=== PATIENT | male | born 1950 | race Caucasian/White ===

== ENCOUNTER 2016-10-29 11:44 | Inpatient (IN) | payer MEDICARE, BC ==
[~2016-10-29] VITALS: Ht 170.2 cm; Wt 48.9 kg
[~2016-10-29 11:44] MED LIST: ATOR80TA PO; CITA-48 PO; CLON1TAB PO; CYCL1PAK PO; GABA100C4 PO; LORTA5 PO; QUET25 PO; ROSU40 PO; TIZA4CAP PO; VENL75CA44 PO
[2016-10-29 11:46] VITALS: BP 119/90; PULSE 106; RESP 18; O2SAT 98
--- NOTE | 2016-10-29 12:12 | PD ---
HPI Chief Complaint: GI Complaint Time Seen by Provider: 12:11 Travel History International Travel<30 days: No Contact w/Intl Traveler<30days: No Traveled to known affect area: No History of Present Illness HPI 66-year-old male came to the emergency room with history of chronic diarrhea and weight loss over 2-3 weeks. Patient says he lost 30 pounds. His primary care and asked them to come to the emergency room. He is not complaining of any pain anywhere. He does seem emaciated. Patient has slight tachycardia in the triage. He does not appear to be in any distress. He is really vague with his complaints. [facility] Past Medical History Narrative Medical List of his past medical, surgical, social and family history was reviewed from the nursing note. Cancer: No Cardiovascular Problems: No Diabetes: No Diminished Hearing: No Endocrine: No Gastrointestinal Disorders: Yes Genitourinary: No Hepatitis: No Hiatal Hernia: No Immune Disorder: No Insomnia: Yes Medical other: Yes (HYDROCEPHALIS) Neurologic: Yes (FALLING NOVEMBER2012) Psychiatric: Yes (PANIC ATTACKS) Reproductive: No Respiratory: No Immunizations Current: Yes Thyroid Disease: No Tetanus Vaccination: < 5 Years Influenza Vaccination: No Past Surgical History Abdominal Surgery: Yes (COLONOSCOPY 2004) Other Surgery: Yes Social History Alcohol Use: Yes (socially) Tobacco Use: Yes (cigars) Substance Use: No Allergies-Medications (Allergen,Severity, Reaction): Uncoded Allergies: TYPHOID (Allergy, Severe, Anaphylaxis, 06/28/13) Comments List of his allergies reviewed from the nursing note. Reported Meds & Prescriptions Reported Meds & Active Scripts Active Reported Fosamax (Alendronate Sodium) 70 Mg Tab 70 Mg PO Q7D Trazodone (Trazodone HCl) 100 Mg Tab 100 Mg PO HS Narrative Medication List of his home medications reviewed from the nursing note. Review of Systems Except as stated in HPI: all other systems reviewed are Neg Physical Exam Narrative GENERAL: Awake, alert, emaciated, no obvious distress SKIN: Warm and dry. Generalized erythematous maculopapular rash HEAD: Atraumatic. Normocephalic. EYES: Pupils equal and round. No scleral icterus. No injection or drainage. ENT: No nasal bleeding or discharge. Mucous membranes pink and moist. NECK: Trachea midline. No JVD. CARDIOVASCULAR: Regular rate and rhythm. No murmur appreciated. RESPIRATORY: No accessory muscle use. Clear to auscultation. Breath sounds equal bilaterally. GASTROINTESTINAL: Abdomen soft, non-tender, nondistended. Hepatic and splenic margins not palpable. MUSCULOSKELETAL: No obvious deformities. No clubbing. No cyanosis. No edema. NEUROLOGICAL: Awake and alert. No obvious cranial nerve deficits. Motor grossly within normal limits. Normal speech. PSYCHIATRIC: Appropriate mood and affect; insight and judgment normal. Data Data Last Documented VS Orders Complete Blood Count With Diff (10/29/16 12:18) Comprehensive Metabolic Panel (10/29/16 12:18) Iv Access Insert/Monitor (10/29/16 12:18) Ecg Monitoring (10/29/16 12:18) Oximetry (10/29/16 12:18) Sodium Chlor 0.9% 1000 Ml Inj (Ns 1000 M (10/29/16 12:18) Sodium Chloride 0.9% Flush (Ns Flush) (10/29/16 12:30) Potassium Chloride Eff (K-Lyte Cl Eff) (10/29/16 13:45) Ct Abd/Pel W Iv Contrast(Rout) (10/29/16 ) Iohexol 350 Inj (Omnipaque 350 Inj) (10/29/16 14:35) Admit Order (Ed Use Only) (10/29/16 15:49) Labs MDM Medical Decision Making Medical Screen Exam Complete: Yes Emergency Medical Condition: Yes Medical Record Reviewed: Yes Differential Diagnosis Failure to thrive, chronic diarrhea syndrome Narrative Course 12:58 PM patient was given IV fluid bolus. Awaiting for the blood test results. 1:52 PM blood test results are back. Patient has leukopenia and his potassium and calcium was slightly low. I have ordered a CAT scan of his abdomen and pelvis with IV contrast. Given the significant weight loss in past 2 weeks ago with diarrhea and concern from malignancy standpoint. I have put a call out for Dr. Knox. 3:32 PM CAT scan report came back as inguinal lymphadenopathy. Possible neoplasm versus inflammatory. Given the 30 pound weight loss neoplasm seems to be more likely. I discussed this with Dr. Knox and patient would benefit if worked up inpatient as per him. Awaiting for the hospitalist to call back. Procedures EKG Prior to Arrival: No Physician Communication Physician Communication Dr. Booth Diagnosis Primary Impression: Failure to thrive in adult Additional Impressions: Dehydration Inguinal lymphadenopathy Occult malignancy Admitting Information Admitting Physician Requests: Admit Scripts Hydrocodone-Acetaminophen 5-325 mg Tab1 Tab PO Q4H PRN (PAIN SCALE 1 TO 7) #12 TAB Ref 0 Do not use this medicine if you will drive a car or use a machine, only use it when resting at home. Prov:Omid Carey MD 11/04/16 Carmella Barker MD Oct 29, 2016 12:12 Neutrophils # (Auto) 2.6 TH/MM3 Lymphocytes # (Auto) 0.5 TH/MM3 Monocytes # (Auto) 0.2 TH/MM3 Eosinophils # (Auto) 0.0 TH/MM3 Basophils # (Auto) 0.0 TH/MM3 CBC Comment DIFF FINAL Differential Comment Sodium Level 133 MEQ/L Potassium Level 3.4 MEQ/L Chloride Level 100 MEQ/L Carbon Dioxide Level 26.1 MEQ/L Anion Gap 7 MEQ/L Blood Urea Nitrogen 16 MG/DL Creatinine 0.94 MG/DL Estimat Glomerular Filtration 81 ML/MIN Rate Random Glucose 147 MG/DL Calcium Level 7.1 MG/DL Protein Corrected Calcium 8.0 MG/DL Total Bilirubin 0.4 MG/DL Aspartate Amino Transf 64 U/L (AST/SGOT) Alanine Aminotransferase 54 U/L (ALT/SGPT) Alkaline Phosphatase 78 U/L Total Protein 5.4 GM/DL Albumin 2.3 GM/DL [facility] Medical Decision Making Medical Screen Exam Complete: Yes Emergency Medical Condition: Yes Medical Record Reviewed: Yes Differential Diagnosis Failure to thrive, chronic diarrhea syndrome Narrative Course 12:58 PM patient was given IV fluid bolus. Awaiting for the blood test results. 1:52 PM blood test results are back. Patient has leukopenia and his potassium and calcium was slightly low. I have ordered a CAT scan of his abdomen and pelvis with IV contrast. Given the significant weight loss in past 2 weeks ago with diarrhea and concern from malignancy standpoint. I have put a call out for Dr. Knox. Next 3:32 PM CAT scan report came back as inguinal lymphadenopathy. Possible neoplasm versus inflammatory. Given the 30 pound weight loss neoplasm seems to be more likely. I discussed this with Dr. nKox and patient with the eye daily worked up inpatient as per him. Awaiting for the hospitalist to call back. Procedures EKG Prior to Arrival: No Physician Communication Physician Communication Dr. Booth Diagnosis Primary Impression: Failure to thrive in adult Additional Impressions: Dehydration Inguinal lymphadenopathy Occult malignancy Admitting Information Admitting Physician Requests: Admit Carmella Barker MD Oct 29, 2016 12:12
[2016-10-29] MEDS ORDERED: SODIUM CHLOR 0.9% 1000 ML INJ 1,000 ML IV SCH (12:18)
[2016-10-29] MEDS ORDERED: SODIUM CHLORIDE 0.9% FLUSH 10 ML FLUSH IV FLUSH PRN ×2 (12:30→16:45)
[2016-10-29 12:37] VITALS: O2SAT 98
[2016-10-29] MEDS ORDERED: FOSA70TA PO (12:46)
[2016-10-29] MEDS ORDERED: TRAZ100T4 PO (12:46)
[2016-10-29 13:00] VITALS: BP 108/87; PULSE 86; RESP 18; O2SAT 97
[2016-10-29 13:11] LABS: AUTOMATED NEUTROPHIL # 2.6 TH/MM3 (1.8-7.7); BASOPHIL % 0.6 % (0.0-2.0); EOSINOPHIL % 0.2 % (0.0-4.0); HEMATOCRIT 41.3 % (39.0-51.0); HEMO FLAGS DIFF FINAL; LYMPH % 16.1 % (9.0-44.0); LYMPHOCYTE # 0.5 TH/MM3 (1.0-4.8); MEAN CELL VOLUME 85.4 FL (80.0-100.0); MEAN CORPUSCULAR HEMOGLOBIN 28.8 PG (27.0-34.0); MEAN CORPUSCULAR HGB CONC 33.7 % (32.0-36.0); MONO % 6.1 % (0.0-8.0); PLATELET COUNT 227 TH/MM3 (150-450); RED BLOOD COUNT 4.83 MIL/MM3 (4.50-5.90); RED CELL DISTRIBUTION WIDTH 13.7 % (11.6-17.2); WHITE BLOOD COUNT 3.3 TH/MM3 (4.0-11.0)
[2016-10-29 13:34] LABS: BICARBONATE 26.1 MEQ/L (21.0-32.0); POTASSIUM 3.4 MEQ/L (3.5-5.1); TOTAL BILIRUBIN ADULT 0.4 MG/DL (0.2-1.0)
[2016-10-29] MEDS ORDERED: POTASSIUM CHLORIDE 25 MEQ EFFERVESCENT TAB PO ONE (13:45)
[2016-10-29] MEDS ORDERED: IOHEXOL 350 MG/ML 10 ML VIAL (for RAD DIAG) IV ONE (14:35)
--- NOTE | 2016-10-29 14:57 | RADRPT ---
EXAM DATE/TIME: 10/29/2016 14:30 [facility] COMPARISON: No previous studies available for comparison. INDICATIONS : Diarrhea for 2 week with weight loss. IV CONTRAST: 96 cc Omnipaque 350 (iohexol) IV ORAL CONTRAST: No oral contrast ingested. RADIATION DOSE: 4.86 CTDIvol (mGy) MEDICAL HISTORY : None SURGICAL HISTORY : None. ENCOUNTER: Initial ACUITY: 1 day PAIN SCALE: 0/10 LOCATION: abdomen TECHNIQUE: Volumetric scanning of the abdomen and pelvis was performed. Using automated exposure control and ad justment of the mA and/or kV according to patient size, radiation dose was kept as low as reasonably achievable to obtain optimal diagnostic quality images. FINDINGS: LOWER LUNGS: The visualized lower lungs are clear. LIVER: There is a vague subcentimeter low density in the dome of the liver, segment VII. Mild diffuse decrea sed attenuation may be steatosis. No evidence of biliary ductal dilatation. SPLEEN: Normal size without lesion. PANCREAS: Within normal limits. KIDNEYS: Normal in size and shape. There is no mass, stone or hydronephrosis. ADRENAL GLANDS: Within normal limits. VASCULAR: Atherosclerotic changes involving the abdominal aorta and branch vessels. No evidence of aneurysm. No evidence of major vessel occlusion. BOWEL/MESENTERY: The stomach, small bowel, and colon demonstrate no acute abnormality. There is no free intraperitone al air or fluid. ABDOMINAL WALL: Within normal limits. RETROPERITONEUM: Prominent right iliac lymphadenopathy with tamara enlargement extending into the right inguinal region in contiguous fashion.. BLADDER: No wall thickening or mass. REPRODUCTIVE: Within normal limits. INGUINAL: Right inguinal lymphadenopathy including a nearly 3 cm node in the medial right groin. MUSCULOSKELETAL: Previous pinning of the left hip. 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 CONCLUSION: Right iliac and inguinal lymphadenopathy. Correlate with possible infectious/inflammatory process in the right lower extremity. Otherwise concerning for neoplasm. Nonspecific low density right lobe liver lesion. Zeb Guan MD on October 29, 2016 at 14:42 Board Certified Radiologist. This report was verified electronically.
[2016-10-29 16:30] VITALS: BP 113/67; PULSE 79; RESP 18; O2SAT 99
[2016-10-29] MEDS ORDERED: ACETAMINOPHEN/HYDROcodone 325 MG/5 MG TAB PO PRN (16:45)
[2016-10-29] MEDS ORDERED: ACETAMINOPHEN 325 MG TAB PO PRN ×2 (16:45)
[2016-10-29] MEDS ORDERED: NALOXONE HCL 0.4 MG/ML AMP IV PRN (16:45)
[2016-10-29] MEDS ORDERED: ONDANSETRON HCL 4 MG/2 ML VIAL IVP PRN (16:45)
--- NOTE | 2016-10-29 16:45 | HHI.HP ---
[facility] Service [place] [facility] Primary Care Physician Mandeep Ragland MD Admission Diagnosis failure to thrive, occult neoplasm, dehydration Diagnoses: (1) Occult malignancy (2) Inguinal lymphadenopathy (3) Failure to thrive in adult (4) Generalized maculopapular rash (5) Diarrhea (6) Neutropenia Chief Complaint: weight loss, generalized maculopapular rash and diarrhea Travel History International Travel<30 Days: No Contact w/Intl Traveler <30 Da: No Traveled to Known Affected Are: No History of Present Illness 66-year-old male with a history of panic attack, depression was advised by his PCP to seek medical attention to the ED for evaluation of 2-3 weeks history of chronic diarrhea described as loose stool happening 5 times a day associated with generalized maculopapular rash and approximately 30 pound weight loss without any complaint of abdominal pain or febrile episode. He also reports some appetite however denies any nausea or vomiting. Patient denies any recent travel as well or sick contact. Abnormal labs include WBC 3.3 and AST of 64. Abdomen/Pelvis CT with finding of inguinal lymphadenopathy. Patient denies any GI bleed and cities has his last colonoscopy over 5 years ago which was read as within normal limits. Review of Systems Other 12 systems reviewed and are negative except for the one mentioned in history of present illness Past Family Social History Past Medical History History of hyperlipidemia Panic attack Depression Past Surgical History ORIF left hip ORIF left arm Reported Medications Fosamax (Alendronate Sodium) 70 Mg Tab 70 Mg PO Q7D Trazodone (Trazodone HCl) 100 Mg Tab 100 Mg PO HS Allergies: Uncoded Allergies: TYPHOID (Allergy, Severe, Anaphylaxis, 06/28/13) Family History Father from complication of COPD Mother from dementia Social History Patient smokes 1-2 cigars per day but denies alcohol or illicit drug intake. Physical Exam Vital Signs Vital Signs Date Time Temp Pulse Resp B/P Pulse Ox O2 Delivery O2 Flow Rate FiO2 10/29/16 13:00 86 18 108/87 97 Room Air 10/29/16 12:37 98 Room Air 10/29/16 11:46 106 18 119/90 98 Room Air Physical Exam GENERAL: This is an emancipated patient, in no apparent distress. SKIN: Generalized maculopapular rash of her entire body HEAD: Atraumatic. Normocephalic. No temporal or scalp tenderness. EYES: Pupils equal round and reactive. Extraocular motions intact. No scleral icterus. No injection or drainage. ENT: Nose without bleeding, purulent drainage or septal hematoma. Throat without erythema, tonsillar hypertrophy or exudate. Uvula midline. Airway patent. NECK: Trachea midline. + lymphadenopathy. Supple, nontender, no meningeal signs. CARDIOVASCULAR: Regular rate and rhythm without murmurs, gallops, or rubs. RESPIRATORY: Clear to auscultation. Breath sounds equal bilaterally. No wheezes , rales, or rhonchi. GASTROINTESTINAL: Abdomen soft, non-tender, nondistended. No hepato-splenomegaly , or palpable masses. No guarding. MUSCULOSKELETAL: Extremities without clubbing, cyanosis, or edema. No joint tenderness, effusion, or edema noted. No calf tenderness. Negative Homans sign bilaterally. NEUROLOGICAL: Awake and alert. Cranial nerves II through XII intact. Motor and sensory grossly within normal limits. Five out of 5 muscle strength in all muscle groups. Normal speech. Laboratory Laboratory Tests Test 10/29/16 12:30 White Blood Count 3.3 Red Blood Count 4.83 Hemoglobin 13.9 Hematocrit 41.3 Mean Corpuscular Volume 85.4 Mean Corpuscular Hemoglobin 28.8 Mean Corpuscular Hemoglobin 33.7 Concent Red Cell Distribution Width 13.7 Platelet Count 227 Mean Platelet Volume 7.8 Neutrophils (%) (Auto) 77.0 Lymphocytes (%) (Auto) 16.1 Monocytes (%) (Auto) 6.1 Eosinophils (%) (Auto) 0.2 Basophils (%) (Auto) 0.6 Neutrophils # (Auto) 2.6 Lymphocytes # (Auto) 0.5 Monocytes # (Auto) 0.2 Eosinophils # (Auto) 0.0 Basophils # (Auto) 0.0 CBC Comment DIFF FINAL Differential Comment Sodium Level 133 Potassium Level 3.4 Chloride Level 100 Carbon Dioxide Level 26.1 Anion Gap 7 Blood Urea Nitrogen 16 Creatinine 0.94 Estimat Glomerular Filtration 81 Rate Random Glucose 147 Calcium Level 7.1 Protein Corrected Calcium 8.0 Total Bilirubin 0.4 Aspartate Amino Transf 64 (AST/SGOT) Alanine Aminotransferase 54 (ALT/SGPT) Alkaline Phosphatase 78 Total Protein 5.4 Albumin 2.3 Result Diagram: 10/29/16 1230 10/29/16 1230 Imaging Last Impressions Abdomen/Pelvis CT 10/29/16 0000 Signed Impressions: Service Date/Time: Saturday, October 29, 2016 14:30 - CONCLUSION: Right iliac and inguinal lymphadenopathy. Correlate with possible infectious/inflammatory process in the right lower extremity. Otherwise concerning for neoplasm. Nonspecific low density right lobe liver lesion. Zeb Guan MD Assessment and Plan Problem List: (1) Inguinal lymphadenopathy ICD Code: R59.0 Status: Acute (2) Failure to thrive in adult ICD Code: R62.7 Status: Acute (3) Occult malignancy ICD Code: C80.1 Status: Acute (4) Generalized maculopapular rash ICD Code: R21 Status: Acute (5) Neutropenia ICD Code: D70.9 Status: Acute (6) Diarrhea ICD Code: R19.7 Status: Acute (7) Impaired fasting glucose ICD Code: R73.01 Status: Acute Assessment and Plan 66-year-old male with Chronic diarrhea Failure to drive Inguinal lymphadenopathy Occult Malignancy -CT abdomen/pelvis noted and review by me with finding of Right iliac and inguinal lymphadenopathy. Correlate with possible infectious/inflammatory process in the right lower extremity. Otherwise concerning for neoplasm. -Check C diff PCR, stool culture for Ova and Parasite, Cyclospora and crypto in his stool. -Check tumor markers including AFP, CEA, Ca19-9 -Check HIV antigen/antibodies -Will get CT chest/thorax to rule out lymphadenopathy vs tumor -Consult Oncology for evaluation for possible Bone marrow biopsy Impaired fasting glucose: Check HgA1C and treat accordingly Hypokalemia: Replace electrolyte and monitor Depression/Insomnia: Resume outpatient medication DVT prophylaxis: B-SCD Code Status Full code Discussed Condition With patient, ED physician Physician Certification 2 Midnight Certification Type: Admission for Inpatient Services Order for Inpatient Services The services are ordered in accordance with Medicare regulations or non- Medicare payer requirements, as applicable. In the case of services not specified as inpatient-only, they are appropriately provided as inpatient services in accordance with the 2-midnight benchmark. Estimated LOS (days): 2 days is the estimated time the patient will need to remain in the hospital, assuming treatment plan goals are met and no additional complications. Post-Hospital Plan: Not yet determined Jv Zhang MD Oct 29, 2016 16:45
--- NOTE | 2016-10-29 17:35 | RADRPT ---
EXAM DATE/TIME: 10/29/2016 17:17 [facility] COMPARISON: No previous studies available for comparison. INDICATIONS : Abnormal abdominal CT today; evaluate for neoplasm. RADIATION DOSE: 6.16 CTDIvol (mGy) MEDICAL HISTORY : None SURGICAL HISTORY : None. ENCOUNTER: Initial ACUITY: 1 day PAIN SCALE: 0/10 LOCATION: chest TECHNIQUE: Volumetric scanning of the chest was performed. Using automated exposure control and adjustment of t he mA and/or kV according to patient size, radiation dose was kept as low as reasonably achievable to obtain optimal diagnostic quality images. FINDINGS: LUNGS: Airspace disease in the posterior left perihilar distribution involving the superior segment of the l eft lower lobe. Smaller parenchymal densities are seen in the left and right upper lobes. PLEURAE: There is no pleural thickening or pleural effusion. MEDIASTINUM: The heart and great vessels demonstrate no acute abnormality. There is no mediastinal or hilar lymph adenopathy. There is some atherosclerotic calcification of the coronary arteries AXILLAE: Within normal limits. No lymphadenopathy. MUSCULOSKELETAL: Within normal limits for patient age. MISCELLANEOUS: The visualized upper abdominal organs demonstrate no acute abnormality. CONCLUSION: 1. Airspace disease most prominent in the left posterior perihilar distribution involving the superio r segment of the left lower lobe. Smaller areas of parenchymal density in both upper lobes. Findings are most characteristic of a pneumonic infiltrate. I would recommend a followup CT scan of the chest in a few weeks after therapy to ensure resolution, however. 2. Atherosclerotic calcification of the coronary arteries Moreno Wilson MD on October 29, 2016 at 17:29 Board Certified Radiologist. This report was verified electronically.
--- NOTE | 2016-10-29 17:48 | RADRPT ---
EXAM DATE/TIME: 10/29/2016 17:19 [facility] COMPARISON: CT THORAX W/O CONTRAST, October 29, 2016, 17:17. INDICATIONS : Short of breath. MEDICAL HISTORY : None. SURGICAL HISTORY : None. ENCOUNTER: Initial ACUITY: 1 day PAIN SCORE: 0/10 LOCATION: Bilateral chest FINDINGS: Right upper lobe and left perihilar infiltrates are noted. There is no evidence of effusion. Heart si ze is within normal limits. CONCLUSION: Bilateral infiltrates. Zeb Guan MD on October 29, 2016 at 17:45 Board Certified Radiologist. This report was verified electronically.
[2016-10-29 18:00] VITALS: BP 135/72; PULSE 72; RESP 18; O2SAT 97
[2016-10-29 20:14] VITALS: BP 135/60
[2016-10-29] MEDS: SODIUM CHLORIDE 0.9% FLUSH 10 ML FLUSH IV FLUSH SCH (21:00)
[2016-10-29] MEDS: traZODone HCL 100 MG TAB PO SCH (21:31)
[2016-10-30] VITALS (7 sets, daily range): BP systolic 94–124; BP diastolic 55–97; PULSE 67–95; RESP 14–18; TEMP 97.7–99; O2SAT 95–98
[2016-10-30 07:29] LABS: AUTOMATED NEUTROPHIL # 2.3 TH/MM3 (1.8-7.7); BASOPHIL % 0.7 % (0.0-2.0); EOSINOPHIL % 1.5 % (0.0-4.0); HEMATOCRIT 36.1 % (39.0-51.0); HEMO FLAGS DIFF FINAL; LYMPH % 19.5 % (9.0-44.0); LYMPHOCYTE # 0.6 TH/MM3 (1.0-4.8); MEAN CELL VOLUME 84.2 FL (80.0-100.0); MEAN CORPUSCULAR HEMOGLOBIN 28.6 PG (27.0-34.0); MONO % 8.1 % (0.0-8.0); NEUT % 70.2 % (16.0-70.0); PLATELET COUNT 222 TH/MM3 (150-450); RED BLOOD COUNT 4.29 MIL/MM3 (4.50-5.90); RED CELL DISTRIBUTION WIDTH 13.4 % (11.6-17.2); WHITE BLOOD COUNT 3.2 TH/MM3 (4.0-11.0)
[2016-10-30 08:11] LABS: ALKALINE PHOSPHATASE 61 U/L (45-117); ALT (GPT) 42 U/L (12-78); ANION GAP 6 MEQ/L (5-15); AST (GOT) 46 U/L (15-37); BICARBONATE 24.7 MEQ/L (21.0-32.0); BLOOD UREA NITROGEN 12 MG/DL (7-18); CALCIUM-PROTEIN CORRECTED 8.7 MG/DL (8.5-10.1); CHLORIDE 105 MEQ/L (98-107); GLOMERULAR FILTRATION RATE 147 ML/MIN (>89); POTASSIUM 3.5 MEQ/L (3.5-5.1); SODIUM (NA) 136 MEQ/L (136-145); TOTAL BILIRUBIN ADULT 0.3 MG/DL (0.2-1.0)
--- NOTE | 2016-10-30 08:53 | HHI.PR ---
Subjective Remarks Follow-up failure to thrive/occult malignancy/chronic diarrhea 10/30/16: Patient seen and examined and now reports that he is only had diarrhea for 1 week but none in the past 2 days. Patient claims sometimes he gets confused. He denies any cough production and currently afebrile. Objective Vitals Vital Signs Date Time Temp Pulse Resp B/P Pulse Ox O2 Delivery O2 Flow Rate FiO2 10/30/16 03:55 97.8 74 16 106/55 97 10/30/16 00:00 97.7 78 16 105/59 96 10/29/16 20:14 88 18 135/60 97 10/29/16 18:00 72 18 135/72 97 Room Air 10/29/16 16:30 79 18 113/67 99 Room Air 10/29/16 13:00 86 18 108/87 97 Room Air 10/29/16 12:37 98 Room Air 10/29/16 11:46 106 18 119/90 98 Room Air I/O 10/29/16 10/29/16 10/29/16 10/30/16 10/30/16 10/30/16 07:00 15:00 23:00 07:00 15:00 23:00 Intake Total 240 ml 150 ml Output Total 200 ml Balance 240 ml -50 ml Intake Oral 240 ml 150 ml Output Urine Total 200 ml # Voids 0 # Bowel Movements 0 0 Result Diagram: 10/30/16 0635 10/30/16 0635 Imaging Last Impressions Chest X-Ray 10/29/16 0000 Signed Impressions: Service Date/Time: Saturday, October 29, 2016 17:19 - CONCLUSION: Bilateral infiltrates. Zeb Guan MD Chest CT 10/29/16 0000 Signed Impressions: Service Date/Time: Saturday, October 29, 2016 17:17 - CONCLUSION: 1. Airspace disease most prominent in the left posterior perihilar distribution involving the superior segment of the left lower lobe. Smaller areas of parenchymal density in both upper lobes. Findings are most characteristic of a pneumonic infiltrate. I would recommend a followup CT scan of the chest in a few weeks after therapy to ensure resolution, however. 2. Atherosclerotic calcification of the coronary arteries Moreno Wilson MD Abdomen/Pelvis CT 10/29/16 0000 Signed Impressions: Service Date/Time: Saturday, October 29, 2016 14:30 - CONCLUSION: Right iliac and inguinal lymphadenopathy. Correlate with possible infectious/inflammatory process in the right lower extremity. Otherwise concerning for neoplasm. Nonspecific low density right lobe liver lesion. Zeb Guan MD Objective Remarks GENERAL:Emanciated patient in no acute distress SKIN: Warm and dry. HEAD: Normocephalic. EYES: No scleral icterus. No injection or drainage. NECK: Supple, trachea midline. + lymphadenopathy. CARDIOVASCULAR: Regular rate and rhythm without murmurs, gallops, or rubs. RESPIRATORY: Breath sounds equal bilaterally. No accessory muscle use. GASTROINTESTINAL: Abdomen soft, non-tender, nondistended. MUSCULOSKELETAL: No cyanosis, or edema. BACK: Nontender without obvious deformity. No CVA tenderness. A/P Problem List: (1) Inguinal lymphadenopathy ICD Code: R59.0 Status: Acute (2) Failure to thrive in adult ICD Code: R62.7 Status: Acute (3) Occult malignancy ICD Code: C80.1 Status: Acute (4) Generalized maculopapular rash ICD Code: R21 Status: Acute (5) Neutropenia ICD Code: D70.9 Status: Acute (6) Diarrhea ICD Code: R19.7 Status: Acute (7) Impaired fasting glucose ICD Code: R73.01 Status: Acute Assessment and Plan 66-year-old male with Chronic diarrhea Failure to drive Inguinal lymphadenopathy Occult Malignancy -CT abdomen/pelvis with finding of Right iliac and inguinal lymphadenopathy. Correlate with possible infectious/inflammatory process in the right lower extremity. Otherwise concerning for neoplasm. - C diff PCR, stool culture for Ova and Parasite, Cyclospora and crypto in his stool pending -LDH elevated however tumor markers including AFP, CEA, Ca19-9 all within normal limits - HIV antigen/antibodies pending -CT chest/thorax noted and review with finding of pneumonic infiltrates for which we may ask assistance from pulmonary medicine versus ID for further evaluation -Appreciate input from Oncology Impaired fasting glucose: HgA1C pending and treat accordingly Hypokalemia: Resolved status post treatment Depression/Insomnia: Continue outpatient medication DVT prophylaxis: B-SCD Jv Zhang MD Oct 30, 2016 08:53
[2016-10-30] MEDS: SODIUM CHLORIDE 0.9% FLUSH 10 ML FLUSH IV FLUSH SCH ×2 (09:00→20:07)
[2016-10-30] MEDS ORDERED: PNEUMOCOCCAL POLYVALENT INJ 25 MCG/0.5 ML SYR IM ONE (10:00)
[2016-10-30] MEDS ORDERED: INFLUENZA VIRUS VACCINE (QUADRIVALENT) 0.5 ML SYR IM ONE (10:00)
--- NOTE | 2016-10-30 11:08 | MB ---
cc: MELANY MARRERO M.D. DATE OF CONSULTATION 10/30/[address] Zhang REASON FOR CONSULTATION Oncology consulted to render opinion regarding patient with constitutional symptoms and adenopathy. HISTORY OF PRESENT ILLNESS The patient is a 66-year-old male with no significant past medical history who started experiencing diarrhea about three weeks ago. He said it was initially runny, but lately it is more loose. He has about five stools a day. He also lost about 30 pounds over the last few weeks. He has decreased appetite. He also noticed some rash on his arm and his legs, but they are not pruritic. He denies any fever, chills or night sweats. Denies any headache or visual changes. He has no chest pain, palpitations, shortness of breath or cough. He has no nausea, vomiting, or abdominal pain. Denies any change in bowel habits. Denies any dysuria or hematuria. Denies any melena or hematochezia. Denies any pain. On presentation, he was found to have mild leukopenia and decreased lymphocyte count. His CT of the chest showed possible bilateral pneumonia, although clinically he has no pulmonary symptom. CT of the abdomen and pelvis showed some enlarged lymph nodes in the right inguinal and right iliac chain. PAST MEDICAL HISTORY 1. Depression 2. Panic attack 3. Hyperlipidemia PAST SURGICAL HISTORY 1. Spinal tap 2. ORIF for left hip and arm 3. Excision of a Blanco's cyst FAMILY HISTORY Father of COPD and mother of dementia. He has two daughters both are healthy. He has three brothers also healthy. No family history of cancer. SOCIAL HISTORY Smoked one to two cigars a day. He used to smoke a pack of cigarettes for about 16 years, quit around 30 years ago. He denies alcohol. 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 ALLERGIES No known drug allergies. MEDICATIONS He is not taking any medications at this time. REVIEW OF SYSTEMS CONSTITUTIONAL: As above. EYES: Denies any blurry vision or double vision. ENT: No mouth sores or voice changes. CARDIOVASCULAR: Denies any chest pressure or palpitations. RESPIRATORY: Denies any shortness of breath or cough. GI: As above. : Denies any dysuria or hematuria. MUSCULOSKELETAL: Denies any bone pain or muscle pain. HEMATOLOGY: Negative. ENDOCRINE: Negative. HEMATOLOGY: Negative. PSYCHIATRIC: Negative. NEUROLOGIC: Negative. PHYSICAL EXAMINATION VITAL SIGNS: Temperature 97.8, blood pressure 106/55, O2 saturation 97%. GENERAL: He is alert and oriented x3 in no acute distress. HEENT: Atraumatic, normocephalic. Pupils equal, round and reactive to light. Extraocular muscle intact. No sclerae icterus. Oropharynx moist mucosa. No lesion or thrush. No mucositis. NECK: No thyromegaly. No palpable masses. LYMPHATICS: No palpable cervical, clavicular, axillary or inguinal lymph nodes. CARDIOVASCULAR: Regular S1-S2. No murmur. LUNGS: Bibasilar crackles. No significant wheezing. ABDOMEN: Soft and nontender. I could not palpate the liver or spleen. EXTREMITIES: No cyanosis, no clubbing, no edema, no calf tenderness. BACK: No paravertebral tenderness. SKIN: He has some macular rash on his arm and legs. I do not see any cellulitis of his right lower extremities. NEUROLOGIC: Exam is nonfocal. INGUINAL EXAM: Showed a palpable lymph node in the right inguinal area that is nontender. LABORATORY DATA Reviewed ASSESSMENT 1. Constitutional symptom with adenopathy. He presented with a three weeks history of diarrhea and about [address] abdomen and pelvis showed right iliac and inguinal lymphadenopathy. The right inguinal lymph node measured about 3 cm and is palpable. There was few smaller lymph node in the right iliac chain. No significant adenopathy noted in the thorax. There was a nonspecific density in the right hepatic lobe. His tumor marker AFP, CEA and CA19-9 were all normal. LDH is elevated. He has significant constitutional symptoms. This is worrisome for a neoplasm. He has some rash on his lower extremity, but I do not see any cellulitis or infection in the right lower extremity that could explain the enlarged lymph node in the right inguinal and iliac chain. Given his symptoms, I think we need to biopsy the lymph node to rule out neoplasm. I talked to him about getting a core needle biopsy versus excisional biopsy. The patient does not want any surgery at this time. He does agree to have a needle biopsy of the right inguinal lymph nodes and I am going to consult radiology for the biopsy. 2. Nonspecific liver lesion noted on CT scan. He has a small hypodensity in the right hepatic lobe. Alpha-fetoprotein is normal. His AST is slightly elevated. 3. Bilateral air space disease suggestive of pneumonia. No significant adenopathy noted in the thorax. Clinically, however, he has no significant pulmonary symptom. 4. Diarrhea that started about three weeks ago. Lately, it is more loose stool. Given his constitutional symptoms he would need further GI workup. I will consult gastroenterology. 5. Depression, history of panic attack. 6. Mild leukopenia and lymphopenia, HIV test is pending. RECOMMENDATIONS 1. Consult radiology for biopsy of the right inguinal lymph Node. 2. Proceed with laboratory evaluation. 3. Consult gastroenterology Thank you Dr. Zhang for asking us to see this patient. MD LISA Syed/ARPAN /10:38 AM /10:53 AM [facility]
--- NOTE | 2016-10-30 12:33 | HHI.GIFU ---
GI Follow-up Note Consult Follow-up Pt reports that he sees Dr. Ramos and has an appointment with him next week. Will consult his service. Entered by: Jessie Marques Oct 30, 2016 12:33
[2016-10-30 13:27] LABS: RETIC % 0.4 % (0.4-3.0); REVIEW FLAG FINAL
[2016-10-30 14:00] LABS: C. DIFF EPI 027 PRESUMPTIVE NEGATIVE (NEGATIVE); C. DIFF TOXIN PCR NEGATIVE (NEGATIVE)
[2016-10-30] MEDS ORDERED: SODIUM BICARBONATE 8.4% INJ 50 ML ONE (14:03)
[2016-10-30] MEDS ORDERED: LIDOCAINE HCL 1% PF 30 ML VIAL ONE (14:03)
[2016-10-30 14:23] LABS: FERRITIN 688 NG/ML (26-388); TRANSFERRIN IRON PROFILE 85 MG/DL (200-360)
--- NOTE | 2016-10-30 15:24 | RADRPT ---
EXAM DATE/TIME: 10/30/2016 11:19 [facility] COMPARISON: No previous studies available for comparison. INDICATIONS : Palpable lymph node in right inguinal canal. MEDICAL HISTORY : Gastroesophageal reflux disease. Tinnitis. Liver disease. Measles. Insomnia. Hydrocephalus. Cdiff. SURGICAL HISTORY : Left hip replacement. Spinal tap. ENCOUNTER: Initial ACUITY: 2 days PAIN SCORE: 0/10 LOCATION: Right groin. ORGAN: Right lymph node SPECIMENS: Two core specimen(s) submitted for pathologic evaluation. DEVICE: 18 gauge Temno needle Post procedure scanning reveals no hematoma or other complication. The possibility does exist that the tissue obtained will be non-diagnostic. If the sample is non-olayinka gnostic a repeat biopsy or surgical biopsy may need to be performed. TECHNIQUE: 1. Ultrasound guidance for needle biopsy. 2. Needle biopsy. The risks, benefits, and alternatives to ultrasound guided needle biopsy were explained to the patien t in detail including the risk of bleeding and infection. Written and verbal informed consent was ob tained. With the patient on the ultrasound table, images were obtained. Overlying skin was prepped and drape d in the usual sterile fashion and Lidocaine was utilized as a local anesthetic. A needle was advanced into the identified target and the number of specimens as above obtained and schafer bmitted for pathologic evaluation. The patient tolerated the procedure well and left the ultrasound suite in stable condition. CONCLUSION: Uncomplicated ultrasound guided needle biopsy. 2-18 gauge cores were obtained. Moreno Wilson MD on October 30, 2016 at 15:22 Board Certified Radiologist. This report was verified electronically.
[2016-10-30 16:39] LABS: HEMOGLOBIN A1a 1.1 %; HEMOGLOBIN A1b 1.6 %; HEMOGLOBIN Ao 84.9 %; HEMOGLOBIN LA1C 2.2 %; HEMOGLOBIN P3 3.8 %
[2016-10-30] MEDS: traZODone HCL 100 MG TAB PO SCH (20:07)
[2016-10-31 00:05] VITALS: BP 116/58; PULSE 71; RESP 18; TEMP 97.6; O2SAT 98
[2016-10-31 04:26] VITALS: BP 107/63; PULSE 75; RESP 18; TEMP 97.9; O2SAT 95
[2016-10-31 08:00] VITALS: BP 100/66; PULSE 84; RESP 18; TEMP 97.9; O2SAT 96
--- NOTE | 2016-10-31 08:13 | HHI.PR ---
Subjective Remarks Follow-up failure to thrive/occult malignancy/chronic diarrhea 10/30/16: Patient seen and examined and now reports that he is only had diarrhea for 1 week but none in the past 2 days. Patient claims sometimes he gets confused. He denies any cough production and currently afebrile. 10/31/16-patient seen and examined, he is status post US GUIDED NEEDLE BIOPSY OF LYMPH NODE. DENIES ANY DIARRHEAL EPISODE 3 DAYS. REPORTS SOME IMPROVEMENT OF BY MOUTH INTAKE. Objective Vitals Vital Signs Date Time Temp Pulse Resp B/P Pulse Ox O2 Delivery O2 Flow Rate FiO2 10/31/16 04:26 97.9 75 18 107/63 95 10/31/16 00:05 97.6 71 18 116/58 98 10/30/16 20:00 Room Air 10/30/16 20:00 99.0 77 18 110/60 96 10/30/16 16:00 98.3 71 18 110/63 98 10/30/16 16:00 97.9 93 18 112/64 98 10/30/16 12:00 97.8 72 18 113/97 97 10/30/16 12:00 98.0 95 18 124/63 95 10/30/16 11:19 98.2 71 14 115/72 97 I/O 10/30/16 10/30/16 10/30/16 10/31/16 10/31/16 10/31/16 07:00 15:00 23:00 07:00 15:00 23:00 Intake Total 150 ml 800 ml 120 ml 120 ml Output Total 200 ml 200 ml 125 ml Balance -50 ml 800 ml -80 ml -5 ml Intake Oral 150 ml 800 ml 120 ml 120 ml Output Urine Total 200 ml 200 ml 125 ml # Voids 3 # Bowel Movements 0 0 Result Diagram: 10/30/16 0635 10/30/16 0635 Imaging Last Impressions Lymph Node Biopsy Ultrasound 10/30/16 0000 Signed Impressions: Service Date/Time: October 11:19 - CONCLUSION: Uncomplicated ultrasound guided needle biopsy. 2-18 gauge cores were obtained. Moreno Wilson MD Chest X-Ray 10/29/16 0000 Signed Impressions: Service Date/Time: Saturday, October 29, 2016 17:19 - CONCLUSION: Bilateral infiltrates. Zeb Guan MD Chest CT 10/29/16 0000 Signed Impressions: Service Date/Time: Saturday, October 29, 2016 17:17 - CONCLUSION: 1. Airspace disease most prominent in the left posterior perihilar distribution involving the superior segment of the left lower lobe. Smaller areas of parenchymal density in both upper lobes. Findings are most characteristic of a pneumonic infiltrate. I would recommend a followup CT scan of the chest in a few weeks after therapy to ensure resolution, however. 2. Atherosclerotic calcification of the coronary arteries Moreno Wilson MD Abdomen/Pelvis CT 10/29/16 0000 Signed Impressions: Service Date/Time: Saturday, October 29, 2016 14:30 - CONCLUSION: Right iliac and inguinal lymphadenopathy. Correlate with possible infectious/inflammatory process in the right lower extremity. Otherwise concerning for neoplasm. Nonspecific low density right lobe liver lesion. Zeb Guan MD Objective Remarks GENERAL:Emanciated patient in no acute distress SKIN: Warm and dry. HEAD: Normocephalic. EYES: No scleral icterus. No injection or drainage. NECK: Supple, trachea midline. + lymphadenopathy. CARDIOVASCULAR: Regular rate and rhythm without murmurs, gallops, or rubs. RESPIRATORY: Breath sounds equal bilaterally. No accessory muscle use. GASTROINTESTINAL: Abdomen soft, non-tender, nondistended. MUSCULOSKELETAL: No cyanosis, or edema. BACK: Nontender without obvious deformity. No CVA tenderness. A/P Problem List: (1) Inguinal lymphadenopathy ICD Code: R59.0 Status: Acute (2) Failure to thrive in adult ICD Code: R62.7 Status: Acute (3) Occult malignancy ICD Code: C80.1 Status: Acute (4) Generalized maculopapular rash ICD Code: R21 Status: Acute (5) Neutropenia ICD Code: D70.9 Status: Acute (6) Diarrhea ICD Code: R19.7 Status: Resolved (7) Impaired fasting glucose ICD Code: R73.01 Status: Acute Assessment and Plan 66-year-old male with Chronic diarrhea Failure to drive Inguinal lymphadenopathy Occult Malignancy -CT abdomen/pelvis with finding of Right iliac and inguinal lymphadenopathy. Correlate with possible infectious/inflammatory process in the right lower extremity. Otherwise concerning for neoplasm. - C diff PCR negative, stool culture for Ova and Parasite, Cyclospora and crypto in his stool pending -LDH elevated however tumor markers including AFP, CEA, Ca19-9 all within normal limits - HIV antigen/antibodies negative -CT chest/thorax noted and review with finding of pneumonic infiltrates for which we may ask assistance from pulmonary medicine versus ID for further evaluation -Appreciate input from Oncology pending gastroenterology consultation -Status post Uncomplicated ultrasound guided needle biopsy 10/30/16 pending pathology report Pulmonic infiltrate on CT chest and CHEST X-RAY: Patient is afebrile and no cough symptoms,.therefore holding on starting antibiotic Impaired fasting glucose: HgA1C 5.7 Hypokalemia: Resolved status post treatment Depression/Insomnia: Continue outpatient medication DVT prophylaxis: B-SCD Jv Zhang MD Oct 31, 2016 08:13
--- NOTE | 2016-10-31 09:48 | PD.CONS ---
GI Consult GI Consult FULL GI CONSULT DICTATED ASSESSMENT/PLAN: 1. Weight loss 2. Lymphadenopathy s/p bx 3. Failure to thrive 4. Moderate to severe protein calorie malnutrition 5. diarrhea resolved PLAN: 1. Diet as tolerated 2. await lymph node bx results 3. Will need endoscopic work up - can done as out pt. Will plan for EGD/colon with Dr Ramos in1-2 wks. 4. Plan discussed with pt. agreeable to following up in office. It was a pleasure seeing Daniel Sadler . Thank you for this consult. Entered by: Eric Allred MD Oct 31, 2016 09:48
[2016-10-31] MEDS: SODIUM CHLORIDE 0.9% FLUSH 10 ML FLUSH IV FLUSH SCH ×2 (10:19→21:49)
--- NOTE | 2016-10-31 11:12 | MB ---
cc: MARCIA MOISE MD, KETUL DATE OF CONSULTATION 10/31/2016 DATE OF 1950 ENDOSCOPIST Eric Colmenares MD [facility] MARCIA MOISE MD REASON FOR CONSULTATION Failure to thrive, weight loss, intermittent diarrhea. HISTORY OF PRESENT ILLNESS This is a very pleasant 66-year-old gentleman who came into the hospital with a description of chronic diarrhea ongoing for the past two to three weeks occurring in multiple bowel movements up to five times per day. He has had about a 30 pound weight loss over the last month or more. He denies any nausea or vomiting. No abdominal pain. He underwent further workup which included a CT scan which was significant for large inguinal lymphadenopathy which raises the suspicion for possible malignancy. Otherwise denies any new medications, sick contacts and overall has been well until the recent symptoms. PAST MEDICAL HISTORY 1. Depression 2. Panic attacks 3. Dyslipidemia PAST SURGICAL HISTORY Left hip repair ALLERGIES NO KNOWN DRUG ALLERGIES. MEDICATIONS None FAMILY HISTORY No GI malignancies. SOCIAL HISTORY Smokes cigars occasionally. Quit smoking about 30 years ago. Denies any illicit drug use. REVIEW OF SYSTEMS A twelve-point review system was obtained and is negative or noncontributory except for as mentioned in the HPI. PHYSICAL EXAMINATION VITAL SIGNS: 97.9, heart rate is 84, respirations 18, blood pressure 100/66, O2 sat 96% on room air. GENERAL: Alert and oriented in no acute distress. EYES: Equal and reactive to light. Extraocular movements are intact. Cooperative, appropriate mood and affect. HEENT: Head is normocephalic. Oral mucosa is moist. NECK: Supple, nontender, no carotid bruits. No JVD noted. Large 1.5 cm enlarged lymph node noted in the right posterior cervical chain. No thyromegaly noted. RESPIRATORY: Clear to auscultation. Nonlabored. Breath sounds are equal. CARDIOVASCULAR: Normal rate, rhythm. ABDOMEN: Soft, nontender, nondistended. Bowel sounds present. No hepatomegaly appreciated. No CVA angle tenderness noted. LYMPHATICS: Lymphadenopathy noted in the neck and the groin, but more predominant on the right cervical chain and the right inguinal area. MUSCULOSKELETAL: Normal range of motion. SKIN: Warm, dry, intact. NEUROLOGIC: Alert and oriented. No focal deficits. PSYCHIATRIC: Cooperative and appropriate mood and affect. LABORATORY DATA WBC 3.2, hemoglobin 12.3, platelet count of 222. Sodium 136, potassium 3.5, chloride 105, bicarb 24, BUN 12, creatinine 0.56, hemoglobin A1c 5.7, calcium 7., iron saturation 28%, AST 46, ALT 42, alk phos 70, LDH 685, CRP 380. Tumor markers AFP 1.6, CEA 3.9, CA19-9 is 5.6. C. Difficile negative. HIV negative. CT SCAN ABDOMEN AND PELVIS Right iliac and inguinal lymphadenopathy correlated with possible infectious or inflammatory process in the right lower extremity, otherwise concerning for neoplasm. Liver vague subcentimeter low density in the dome of the liver, mild diffuse attenuation may be steatosis. IMPRESSION 1. Weight loss. Certainly weight is sufficient for an occult malignancy. 2. Nonspecific lymphadenopathy in the cervical chain and inguinal and iliac status post biopsies by interventional radiology on 10/30/2016, pathology is pending. 3. Failure to thrive. 4. Moderate to severe protein calorie malnutrition due to diarrhea, lack of oral intake slowly improving. 5. Diarrhea resolved. RECOMMENDATIONS 1. Diet as tolerated. 2. Await lymph node biopsy results. 3. He will likely need endoscopic workup which can be done as an outpatient. I had a long discussion with the patient and he is agreeable to following up Dr. Moise in the office and we will plan for an EGD and colonoscopy with Dr. Moise in the next one to weeks. Do not believe that these procedures are necessary during the hospitalization unless his current symptoms worsen or he has a prolonged hospital course. Thank you allowing the [facility] to participate in the care of this patient. Please do not hesitate to contact me for any further questions. MD LEWIS Verduzco/ARPAN /9:51 AM /10:47 AM [facility]
--- NOTE | 2016-10-31 11:38 | PD.ONC.PN ---
Subjective Subjective Remarks Afebrile overnight. Patient wants to know, "when can I go home." He just saw Dr. Colmenares and says he wants to go home so he can eat his own food. Objective Data Date Time Temp Pulse Resp B/P Pulse Ox O2 Delivery O2 Flow Rate FiO2 10/31/16 08:00 97.9 84 18 100/66 96 10/31/16 04:26 97.9 75 18 107/63 95 10/31/16 00:05 97.6 71 18 116/58 98 10/30/16 20:00 Room Air 10/30/16 20:00 99.0 77 18 110/60 96 10/30/16 16:00 98.3 71 18 110/63 98 10/30/16 16:00 97.9 93 18 112/64 98 10/30/16 12:00 97.8 72 18 113/97 97 10/30/16 12:00 98.0 95 18 124/63 95 10/31/16 10/31/16 10/31/16 06:59 14:59 22:59 Intake Total 120 ml Output Total 125 ml Balance -5 ml Result Diagram: 10/30/16 0635 10/30/16 0635 Laboratory Results Laboratory Tests Test 10/30/16 12:57 Reticulocyte Count 0.4 % Absolute Reticulocyte Count 18.0 MIL/L Iron Level 34 MCG/DL Total Iron Binding Capacity 119 MCG/DL Percent Iron Saturation 28.6 % Ferritin 688 NG/ML C-Reactive Protein 3.80 MG/DL Vitamin B12 Level 1057 PG/ML Folate 3.6 NG/ML Culture Results Microbiology Date/Time Procedure Status Source Growth 10/30/16 11:08 Cyclospora Exam - Final Resulted Stool Stool NO CYCLOSPORA SEEN 10/30/16 11:08 Cryptosporidium Exam Resulted Stool Stool Pending 10/30/16 11:08 Giardia Antigen (ROSARIO) Resulted Stool Stool Pending Administered Medications Medications (Trade) Dose Ordered Sig/Tricia Route PRN Reason Start Time Stop Time Status Last Admin Dose Admin Sodium Chloride (NS Flush) 2 ml BID IV FLUSH 10/29/16 21:00 10/31/16 10:19 Trazodone HCl (Desyrel) 100 mg HS PO 10/29/16 21:00 10/30/16 20:07 Objective Remarks GENERAL: Middle aged male, lying in bed in nad SKIN: Warm and dry. dry and scaly. HEAD: Normocephalic. EYES: No injection or drainage. NECK: Supple, trachea midline. CARDIOVASCULAR: Regular rate and rhythm RESPIRATORY: Breath sounds equal bilaterally. No accessory muscle use. GASTROINTESTINAL: Abdomen soft, non-tender, nondistended. EXTREMITIES: No cyanosis NEUROLOGICAL: No obvious focal deficit. Awake, alert, and oriented x3. Assessment/Plan Problem List: (1) Inguinal lymphadenopathy Status: Acute Plan: --s/p biopsy, inguinal LN in IR --fs faxed to [facility] for follow up in 1-2 weeks --presented with a three weeks history of diarrhea and about 30 pounds weight loss. --CT abdomen and pelvis showed right iliac and inguinal lymphadenopathy. no significant adenopathy noted in the thorax. There was a nonspecific density in the right hepatic lobe. --tumor marker AFP, CEA and CA19-9 were all normal. LDH is elevated. (2) Diarrhea Status: Resolved Plan: --follow up with Dr. Ramos outpatient Assessment 66y/o with constitutional symptoms and adenopathy. s/p inguinal LN biopsy h/o Depression Panic attack Hyperlipidemia Spinal tap ORIF for left hip and arm Excision of a Blanco's cyst Plan 1. fs faxed to [facility] for follow up 2. follow up with Dr. Ramos outpatient. Attending Statement The exam, history, and the medical decision-making described in the above note were completed with the assistance of the mid-level provider. I reviewed and agree with the findings presented. I attest that I had a [id number] encounter with the patient on the same day, and personally performed and documented my assessment and findings in the medical record. Feeling better. Diarrhea improving. S/p biopsy right inguinal LN, path pending. He can be d/c from oncology standpoint and f/u oncology clinic. Grecia Matthew Oct 31, 2016 11:38 Gregg Booth MD Oct 31, 2016 15:20
[2016-10-31 12:00] VITALS: BP 116/66; PULSE 73; RESP 18; TEMP 97.7; O2SAT 100
[2016-10-31 16:00] VITALS: BP 119/64; PULSE 75; RESP 18; TEMP 98; O2SAT 97
[2016-10-31 20:46] VITALS: BP 114/61; PULSE 79; RESP 20; TEMP 98.3; O2SAT 96
[2016-10-31] MEDS: traZODone HCL 100 MG TAB PO SCH (21:49)
[2016-11-01] VITALS (7 sets, daily range): BP systolic 104–133; BP diastolic 55–71; PULSE 68–85; RESP 16–18; TEMP 97.8–98.8; O2SAT 94–98
[2016-11-01] MEDS: SODIUM CHLORIDE 0.9% FLUSH 10 ML FLUSH IV FLUSH SCH ×2 (09:19→20:40)
--- NOTE | 2016-11-01 10:52 | HHI.PR ---
Subjective Remarks Follow-up failure to thrive/occult malignancy/chronic diarrhea 10/30/16: Patient seen and examined and now reports that he is only had diarrhea for 1 week but none in the past 2 days. Patient claims sometimes he gets confused. He denies any cough production and currently afebrile. 10/31/16-patient seen and examined, he is status post US GUIDED NEEDLE BIOPSY OF LYMPH NODE. DENIES ANY DIARRHEAL EPISODE 3 DAYS. REPORTS SOME IMPROVEMENT OF BY MOUTH INTAKE. 11/01/16-patient seen and examined, reports some improvement of appetite. No diarrhea since admission Objective Vitals Vital Signs Date Time Temp Pulse Resp B/P Pulse Ox O2 Delivery O2 Flow Rate FiO2 11/01/16 08:00 98.1 68 16 104/60 96 11/01/16 04:00 98.5 72 18 104/58 96 11/01/16 00:33 98.8 74 18 110/55 94 10/31/16 20:46 98.3 79 20 114/61 96 10/31/16 20:00 Room Air 10/31/16 16:00 98.0 75 18 119/64 97 10/31/16 12:00 97.7 73 18 116/66 100 I/O 10/31/16 10/31/16 10/31/16 11/01/16 11/01/16 11/01/16 07:00 15:00 23:00 07:00 15:00 23:00 Intake Total 120 ml Output Total 125 ml 100 ml Balance -5 ml -100 ml Intake Oral 120 ml Output Urine Total 125 ml 100 ml # Voids 2 # Bowel Movements 0 1 Result Diagram: 10/30/16 0635 10/30/16 0635 Imaging Last Impressions Lymph Node Biopsy Ultrasound 10/30/16 0000 Signed Impressions: Service Date/Time: October 11:19 - CONCLUSION: Uncomplicated ultrasound guided needle biopsy. 2-18 gauge cores were obtained. Moreno Wilson MD Chest X-Ray 10/29/16 0000 Signed Impressions: Service Date/Time: Saturday, October 29, 2016 17:19 - CONCLUSION: Bilateral infiltrates. Zeb Guan MD Chest CT 10/29/16 0000 Signed Impressions: Service Date/Time: Saturday, October 29, 2016 17:17 - CONCLUSION: 1. Airspace disease most prominent in the left posterior perihilar distribution involving the superior segment of the left lower lobe. Smaller areas of parenchymal density in both upper lobes. Findings are most characteristic of a pneumonic infiltrate. I would recommend a followup CT scan of the chest in a few weeks after therapy to ensure resolution, however. 2. Atherosclerotic calcification of the coronary arteries Moreno Wilson MD Abdomen/Pelvis CT 10/29/16 0000 Signed Impressions: Service Date/Time: Saturday, October 29, 2016 14:30 - CONCLUSION: Right iliac and inguinal lymphadenopathy. Correlate with possible infectious/inflammatory process in the right lower extremity. Otherwise concerning for neoplasm. Nonspecific low density right lobe liver lesion. Zeb Guan MD Objective Remarks GENERAL:Emanciated patient in no acute distress SKIN: Warm and dry. HEAD: Normocephalic. EYES: No scleral icterus. No injection or drainage. NECK: Supple, trachea midline. + lymphadenopathy. CARDIOVASCULAR: Regular rate and rhythm without murmurs, gallops, or rubs. RESPIRATORY: Breath sounds equal bilaterally. No accessory muscle use. GASTROINTESTINAL: Abdomen soft, non-tender, nondistended. MUSCULOSKELETAL: No cyanosis, or edema. BACK: Nontender without obvious deformity. No CVA tenderness. A/P Problem List: (1) Inguinal lymphadenopathy ICD Code: R59.0 Status: Acute (2) Failure to thrive in adult ICD Code: R62.7 Status: Acute (3) Occult malignancy ICD Code: C80.1 Status: Acute (4) Generalized maculopapular rash ICD Code: R21 Status: Acute (5) Neutropenia ICD Code: D70.9 Status: Acute (6) Diarrhea ICD Code: R19.7 Status: Resolved (7) Impaired fasting glucose ICD Code: R73.01 Status: Acute (8) Protein-calorie malnutrition, moderate ICD Code: E44.0 Status: Acute Assessment and Plan 66-year-old male with Chronic diarrhea Failure to drive Inguinal lymphadenopathy Occult Malignancy -CT abdomen/pelvis with finding of Right iliac and inguinal lymphadenopathy. Correlate with possible infectious/inflammatory process in the right lower extremity. Otherwise concerning for neoplasm. - C diff PCR negative, stool culture for Ova and Parasite, Cyclospora and crypto in his stool negative -LDH elevated however tumor markers including AFP, CEA, Ca19-9 all within normal limits - HIV antigen/antibodies negative -CT chest/thorax noted and review with finding of pneumonic infiltrates -Appreciate input from Oncology - -appreciate input from gastroenterology and recommend outpatient panendoscopy -Status post Uncomplicated ultrasound guided needle biopsy 10/30/16 pending pathology report Pulmonic infiltrate on CT chest and CHEST X-RAY: Patient is afebrile and no cough symptoms,.therefore holding on starting antibiotic Protein calorie nutrition-moderate: Secondary to diarrhea versus occult malignancy. Continue with Ensure. Patient is taking more by mouth now Impaired fasting glucose: HgA1C 5.7 Hypokalemia: Resolved status post treatment Depression/Insomnia: Continue outpatient medication DVT prophylaxis: B-SCD Jv Zhang MD Nov 01, 2016 10:51
[2016-11-01] MEDS: traZODone HCL 100 MG TAB PO SCH (20:40)
[2016-11-02] VITALS: BP 118/66; PULSE 80; RESP 18; TEMP 98; O2SAT 94
[2016-11-02 04:00] VITALS: BP_SYST 108; BP_DIAS 60; BP_DIAS 62; PULSE 65; PULSE 71; RESP 16; RESP 18; TEMP 97.8; TEMP 98.2; O2SAT 94; O2SAT 95
[2016-11-02 08:00] VITALS: BP 108/62; PULSE 74; RESP 20; TEMP 98.1; O2SAT 96
[2016-11-02] MEDS: SODIUM CHLORIDE 0.9% FLUSH 10 ML FLUSH IV FLUSH SCH ×2 (09:00→20:30)
--- NOTE | 2016-11-02 11:35 | HHI.PR ---
Subjective Remarks Follow-up failure to thrive/occult malignancy/chronic diarrhea 10/30/16: Patient seen and examined and now reports that he is only had diarrhea for 1 week but none in the past 2 days. Patient claims sometimes he gets confused. He denies any cough production and currently afebrile. 10/31/16-patient seen and examined, he is status post US GUIDED NEEDLE BIOPSY OF LYMPH NODE. DENIES ANY DIARRHEAL EPISODE 3 DAYS. REPORTS SOME IMPROVEMENT OF BY MOUTH INTAKE. 11/01/16-patient seen and examined, reports some improvement of appetite. No diarrhea since admission 11/02/16-patient seen and examined; he had one episode of fall last night however there was no loss of consciousness or head trauma. He had one small episode of diarrhea this morning otherwise stable Objective Vitals Vital Signs Date Time Temp Pulse Resp B/P Pulse Ox O2 Delivery O2 Flow Rate FiO2 11/02/16 08:00 98.1 74 20 108/62 96 11/02/16 04:00 97.8 65 18 108/62 94 11/02/16 00:00 98.0 80 18 118/66 94 11/01/16 22:00 97.8 85 18 133/71 96 11/01/16 20:00 Room Air 11/01/16 20:00 98.4 77 18 120/60 97 11/01/16 16:00 98.3 74 18 112/63 98 11/01/16 12:00 98.0 76 16 110/61 97 11/01/16 11:47 Room Air I/O 11/01/16 11/01/16 11/01/16 11/02/16 11/02/16 11/02/16 07:00 15:00 23:00 07:00 15:00 23:00 Intake Total 360 ml Output Total 100 ml 200 ml 200 ml Balance -100 ml 360 ml -200 ml -200 ml Intake Oral 360 ml Output Urine Total 100 ml 200 ml 200 ml # Voids 2 # Bowel Movements 1 1 1 Result Diagram: 10/30/1635 10/30/16 0635 Objective Remarks GENERAL:Emanciated patient in no acute distress SKIN: Warm and dry. HEAD: Normocephalic. EYES: No scleral icterus. No injection or drainage. NECK: Supple, trachea midline. + lymphadenopathy. CARDIOVASCULAR: Regular rate and rhythm without murmurs, gallops, or rubs. RESPIRATORY: Breath sounds equal bilaterally. No accessory muscle use. GASTROINTESTINAL: Abdomen soft, non-tender, nondistended. MUSCULOSKELETAL: No cyanosis, or edema. BACK: Nontender without obvious deformity. No CVA tenderness. A/P Problem List: (1) Inguinal lymphadenopathy ICD Code: R59.0 Status: Acute (2) Failure to thrive in adult ICD Code: R62.7 Status: Acute (3) Occult malignancy ICD Code: C80.1 Status: Acute (4) Generalized maculopapular rash ICD Code: R21 Status: Acute (5) Neutropenia ICD Code: D70.9 Status: Acute (6) Diarrhea ICD Code: R19.7 Status: Resolved (7) Impaired fasting glucose ICD Code: R73.01 Status: Acute (8) Protein-calorie malnutrition, moderate ICD Code: E44.0 Status: Acute Assessment and Plan 66-year-old male with Chronic diarrhea Failure to drive Inguinal lymphadenopathy Occult Malignancy -CT abdomen/pelvis with finding of Right iliac and inguinal lymphadenopathy. Correlate with possible infectious/inflammatory process in the right lower extremity. Otherwise concerning for neoplasm. - C diff PCR negative, stool culture for Ova and Parasite, Cyclospora and crypto in his stool all negative -LDH elevated however tumor markers including AFP, CEA, Ca19-9 all within normal limits - HIV antigen/antibodies negative -CT chest/thorax noted and review with finding of pneumonic infiltrates -Appreciate input from Oncology - -appreciate input from gastroenterology and recommend outpatient panendoscopy -Status post Uncomplicated ultrasound guided needle biopsy 10/30/16 pending pathology report Pulmonic infiltrate on CT chest and CHEST X-RAY: Patient is afebrile and no cough symptoms,.therefore holding on starting antibiotic Protein calorie nutrition-moderate: Secondary to diarrhea versus occult malignancy. Continue with Ensure. Patient is taking more by mouth now Impaired fasting glucose: HgA1C 5.7 Hypokalemia: Resolved status post treatment Depression/Insomnia: Continue outpatient medication DVT prophylaxis: B-Jv Bell MD Nov 02, 2016 11:35
[2016-11-02 12:00] VITALS: BP 115/64; PULSE 77; RESP 18; TEMP 98.2; O2SAT 96
[2016-11-02 16:00] VITALS: BP 129/61; PULSE 78; RESP 20; TEMP 99.1; O2SAT 95
[2016-11-02 20:00] VITALS: BP 124/67; PULSE 76; RESP 16; TEMP 98.6; O2SAT 97
[2016-11-02] MEDS: traZODone HCL 100 MG TAB PO SCH (20:30)
[2016-11-03] VITALS: BP 107/57; PULSE 66; RESP 18; TEMP 98.6; O2SAT 97
--- NOTE | 2016-11-03 07:57 | HHI.PR ---
Subjective Remarks Follow-up failure to thrive/occult malignancy/chronic diarrhea 10/30/16: Patient seen and examined and now reports that he is only had diarrhea for 1 week but none in the past 2 days. Patient claims sometimes he gets confused. He denies any cough production and currently afebrile. 10/31/16-patient seen and examined, he is status post US GUIDED NEEDLE BIOPSY OF LYMPH NODE. DENIES ANY DIARRHEAL EPISODE 3 DAYS. REPORTS SOME IMPROVEMENT OF BY MOUTH INTAKE. 11/01/16-patient seen and examined, reports some improvement of appetite. No diarrhea since admission 11/02/16-patient seen and examined; he had one episode of fall last night however there was no loss of consciousness or head trauma. He had one small episode of diarrhea this morning otherwise stable 11/03/16-patient seen and examined, he is very frustrated that he is still in the hospital. Denies any diarrheal episode overnight Objective Vitals Vital Signs Date Time Temp Pulse Resp B/P Pulse Ox O2 Delivery O2 Flow Rate FiO2 11/03/16 00:00 98.6 66 18 107/57 97 11/02/16 20:00 98.6 76 16 124/67 97 11/02/16 20:00 Room Air 11/02/16 16:00 99.1 78 20 129/61 95 11/02/16 12:00 98.2 77 18 115/64 96 11/02/16 08:00 98.1 74 20 108/62 96 I/O 11/02/16 11/02/16 11/02/16 11/03/16 11/03/16 11/03/16 07:00 15:00 23:00 07:00 15:00 23:00 Intake Total 240 ml 240 ml Output Total 200 ml 500 ml 200 ml Balance -200 ml -260 ml 40 ml Intake Oral 240 ml 240 ml Output Urine Total 200 ml 500 ml 200 ml # Bowel Movements 1 1 1 Result Diagram: 10/30/16 0635 10/30/16 0635 Objective Remarks GENERAL:Emanciated patient in no acute distress SKIN: Warm and dry. HEAD: Normocephalic. EYES: No scleral icterus. No injection or drainage. NECK: Supple, trachea midline. + lymphadenopathy. CARDIOVASCULAR: Regular rate and rhythm without murmurs, gallops, or rubs. RESPIRATORY: Breath sounds equal bilaterally. No accessory muscle use. GASTROINTESTINAL: Abdomen soft, non-tender, nondistended. MUSCULOSKELETAL: No cyanosis, or edema. BACK: Nontender without obvious deformity. No CVA tenderness. A/P Problem List: (1) Inguinal lymphadenopathy ICD Code: R59.0 Status: Acute (2) Failure to thrive in adult ICD Code: R62.7 Status: Acute (3) Occult malignancy ICD Code: C80.1 Status: Acute (4) Generalized maculopapular rash ICD Code: R21 Status: Acute (5) Neutropenia ICD Code: D70.9 Status: Acute (6) Diarrhea ICD Code: R19.7 Status: Resolved (7) Impaired fasting glucose ICD Code: R73.01 Status: Acute (8) Protein-calorie malnutrition, moderate ICD Code: E44.0 Status: Acute Assessment and Plan 66-year-old male with Chronic diarrhea Failure to drive Inguinal lymphadenopathy Occult Malignancy -CT abdomen/pelvis with finding of Right iliac and inguinal lymphadenopathy. Correlate with possible infectious/inflammatory process in the right lower extremity. Otherwise concerning for neoplasm. - C diff PCR negative, stool culture for Ova and Parasite, Cyclospora and crypto in his stool all negative -LDH elevated however tumor markers including AFP, CEA, Ca19-9 all within normal limits - HIV antigen/antibodies negative -CT chest/thorax noted and review with finding of pneumonic infiltrates -Appreciate input from Oncology - -appreciate input from gastroenterology and recommend outpatient panendoscopy -Status post Uncomplicated ultrasound guided needle biopsy 10/30/16 pending pathology report Pulmonic infiltrate on CT chest and CHEST X-RAY: Patient is afebrile and no cough symptoms,.therefore we have been holding on starting any antibiotics Protein calorie nutrition-moderate: Secondary to diarrhea versus occult malignancy. Continue with Ensure. Impaired fasting glucose: HgA1C 5.7 Hypokalemia: Resolved status post treatment Depression/Insomnia: Continue outpatient medication DVT prophylaxis: B-Jv Bell MD Nov 03, 2016 07:57
[2016-11-03 08:00] VITALS: BP 104/58; PULSE 74; RESP 18; TEMP 97.9; O2SAT 97
[2016-11-03] MEDS: SODIUM CHLORIDE 0.9% FLUSH 10 ML FLUSH IV FLUSH SCH ×3 (10:07→21:00)
--- NOTE | 2016-11-03 10:43 | PD.ONC.PN ---
Subjective Subjective Remarks Afebrile overnight. Patient eager to know when he may be discharged. He denies diarrhea. Objective Data Date Time Temp Pulse Resp B/P Pulse Ox O2 Delivery O2 Flow Rate FiO2 11/03/16 08:00 97.9 74 18 104/58 97 11/03/16 00:00 98.6 66 18 107/57 97 11/02/16 20:00 98.6 76 16 124/67 97 11/02/16 20:00 Room Air 11/02/16 16:00 99.1 78 20 129/61 95 11/02/16 12:00 98.2 77 18 115/64 96 Result Diagram: 10/30/16 0635 10/30/16 0635 Administered Medications Medications (Trade) Dose Ordered Sig/Tricia Route PRN Reason Start Time Stop Time Status Last Admin Dose Admin Sodium Chloride (NS Flush) 2 ml BID IV FLUSH 10/29/16 21:00 11/03/16 10:07 Trazodone HCl (Desyrel) 100 mg HS PO 10/29/16 21:00 11/02/16 20:30 Objective Remarks GENERAL: Middle aged male, supine in bed SKIN: Warm and dry. dry and flaky HEAD: Normocephalic. EYES: No injection or drainage. NECK: Supple, trachea midline. CARDIOVASCULAR: Regular rate and rhythm RESPIRATORY: Breath sounds equal bilaterally. No accessory muscle use. GASTROINTESTINAL: Abdomen soft, non-tender, nondistended. EXTREMITIES: No cyanosis NEUROLOGICAL: No obvious focal deficit. Awake, alert, and oriented x3. Assessment/Plan Problem List: (1) Inguinal lymphadenopathy Status: Acute Plan: --s/p biopsy, inguinal LN in IR --fs faxed to [facility]pr for follow up in 1-2 weeks --presented with a three weeks history of diarrhea and about 30 pounds weight loss. --CT abdomen and pelvis showed right iliac and inguinal lymphadenopathy. no significant adenopathy noted in the thorax. There was a nonspecific density in the right hepatic lobe. --tumor marker AFP, CEA and CA19-9 were all normal. LDH is elevated. (2) Diarrhea Status: Resolved Plan: --follow up with Dr. Ramos outpatient Assessment 66y/o with constitutional symptoms and adenopathy. s/p inguinal LN biopsy h/o Depression Panic attack Hyperlipidemia Spinal tap ORIF for left hip and arm Excision of a Blanco's cyst Plan 1. oncology clear for discharge. await complete results of inguinal LN biopsy-- will discuss outpatient once discharged. 2. follow up in clinic in 2 weeks post-discharge. may need to obtain outpatient PET scan, depending on results of LN biopsy Attending Statement The exam, history, and the medical decision-making described in the above note were completed with the assistance of the mid-level provider. I reviewed and agree with the findings presented. I attest that I had a [id number] encounter with the patient on the same day, and personally performed and documented my assessment and findings in the medical record.Feeling better. Diarrhea improved. Eager to go home. Pathology from LN biopsy pending. Can be d/c from oncology standpoint and f/u oncology clinic. May need outpt PET/CT. Grecia Matthew Nov 03, 2016 10:43 Gregg Booth MD Nov 03, 2016 14:48
[2016-11-03 12:00] VITALS: BP 109/63; PULSE 86; RESP 18; TEMP 98.1; O2SAT 97
[2016-11-03 16:00] VITALS: BP 130/63; PULSE 78; RESP 18; TEMP 98.4; O2SAT 96
[2016-11-03 20:57] VITALS: BP 121/69; PULSE 76; RESP 18; TEMP 98; O2SAT 96
[2016-11-03] MEDS: traZODone HCL 100 MG TAB PO SCH (20:59)
[2016-11-04 00:03] VITALS: BP 131/67; PULSE 74; RESP 18; TEMP 98.1; O2SAT 96
[2016-11-04 04:00] VITALS: BP 112/62; PULSE 72; RESP 18; TEMP 98.9; O2SAT 96
[2016-11-04 08:00] VITALS: BP 115/67; PULSE 74; RESP 18; TEMP 98.1; O2SAT 97
[2016-11-04] MEDS: SODIUM CHLORIDE 0.9% FLUSH 10 ML FLUSH IV FLUSH SCH (09:00)
--- NOTE | 2016-11-04 09:27 | HHI.PR ---
Subjective Remarks This is a pleasant 66 y/o Male with no significant past medical history who came to ER with diarrhea for three weeks, lost 30 pounds, He has no chest pain, palpitations, shortness of breath or cough. no nausea, vomiting, or abdominal pain. Denies any change in bowel habits. Denies any dysuria or hematuria. His CT of the chest showed possible bilateral pneumonia, although clinically he has no pulmonary symptom. CT of the abdomen and pelvis showed some enlarged lymph nodes in the right inguinal and right iliac, on 10/31/16 had US guided needle biopsy of Lymph node. seen in his bedroom, discussed with nurse Miss Ward Seen by Hematology and client relation specialist, with Diagnosis of Inguinal Lymphadenopathy, status post biopsy inguinal lymph node, --CT abdomen and pelvis showed right iliac and inguinal lymphadenopathy. no significant adenopathy noted in the thorax. There was a nonspecific density in the right hepatic lobe. --tumor marker AFP, CEA and CA19-9 were all normal. LDH is elevated. his Diarrhea resolved. to follow Doctor Gunner Ramos GI specialist as outpatient, has also History of Panic attack, Hyperlipidemia, spinal tap, ORIF of the left hip and arm. excision of Blanco's cyst, Cleared for discharge by rating specialist, follow up in two weeks. Objective Vital Signs Date Time Temp Pulse Resp B/P Pulse Ox O2 Delivery O2 Flow Rate FiO2 11/04/16 08:00 98.1 74 18 115/67 97 11/04/16 04:00 98.9 72 18 112/62 96 11/04/16 00:27 Room Air 11/04/16 00:03 98.1 74 18 131/67 96 11/03/16 20:57 98.0 76 18 121/69 96 11/03/16 16:00 98.4 78 18 130/63 96 11/03/16 12:00 98.1 86 18 109/63 97 11/03/16 11:01 Room Air I/O 11/03/16 11/03/16 11/03/16 11/04/16 11/04/16 11/04/16 07:00 15:00 23:00 07:00 15:00 23:00 Intake Total 720 ml Output Total 200 ml 150 ml Balance 520 ml -150 ml Intake Oral 720 ml Output Urine Total 200 ml 150 ml # Voids 4 1 # Bowel Movements 0 1 0 Imaging Last Impressions Lymph Node Biopsy Ultrasound 3/23/17 0000 Signed Impressions: Service Date/Time: October 11:19 - CONCLUSION: Uncomplicated ultrasound guided needle biopsy. 2-18 gauge cores were obtained. Moreno Wilson MD Chest X-Ray 10/29/16 0000 Signed Impressions: Service Date/Time: Saturday, October 29, 2016 17:19 - CONCLUSION: Bilateral infiltrates. Zeb Guan MD Chest CT 10/29/16 0000 Signed Impressions: Service Date/Time: Saturday, October 29, 2016 17:17 - CONCLUSION: 1. Airspace disease most prominent in the left posterior perihilar distribution involving the superior segment of the left lower lobe. Smaller areas of parenchymal density in both upper lobes. Findings are most characteristic of a pneumonic infiltrate. I would recommend a followup CT scan of the chest in a few weeks after therapy to ensure resolution, however. 2. Atherosclerotic calcification of the coronary arteries Moreno Wilson MD Abdomen/Pelvis CT 10/29/16 0000 Signed Impressions: Service Date/Time: Saturday, October 29, 2016 14:30 - CONCLUSION: Right iliac and inguinal lymphadenopathy. Correlate with possible infectious/inflammatory process in the right lower extremity. Otherwise concerning for neoplasm. Nonspecific low density right lobe liver lesion. Zeb Guan MD Procedures This is a pleasant 66 y/o Male with no significant past medical history who came to ER with diarrhea for three weeks, lost 30 pounds, He has no chest pain, palpitations, shortness of breath or cough. no nausea, vomiting, or abdominal pain. Denies any change in bowel habits. Denies any dysuria or hematuria. His CT of the chest showed possible bilateral pneumonia, although clinically he has no pulmonary symptom. CT of the abdomen and pelvis showed some enlarged lymph nodes in the status post biopsy inguinal lymph node, Other Results Laboratory Tests Test 10/30/16 11:44 Miscellaneous Test Result Objective Remarks GENERAL:Emaciated patient in no acute distress SKIN: Warm and dry. HEAD: Normocephalic. EYES: No scleral icterus. No injection or drainage. NECK: Supple, trachea midline. + lymphadenopathy. CARDIOVASCULAR: Regular rate and rhythm without murmurs, gallops, or rubs. RESPIRATORY: Breath sounds equal bilaterally. No accessory muscle use. GASTROINTESTINAL: Abdomen soft, non-tender, nondistended. MUSCULOSKELETAL: No cyanosis, or edema. BACK: Nontender without obvious deformity. No CVA tenderness. Medications and IVs Current Medications Medications (Trade) Dose Ordered Sig/Tricia Route Start Time Stop Time Status Last Admin (NS Flush) 2 ml UNSCH PRN IV FLUSH 10/29/16 16:45 (NS Flush) 2 ml BID IV FLUSH 10/29/16 21:00 11/03/16 10:07 (Tylenol) 650 mg Q4H PRN PO 10/29/16 16:45 (Zofran Inj) 4 mg Q6H PRN IVP 10/29/16 16:45 (Tylenol) 650 mg Q6H PRN PO 10/29/16 16:45 ([place] 5-325 Mg) 1 tab Q4H PRN PO 10/29/16 16:45 (Narcan Inj) 0.4 mg UNSCH PRN IV 10/29/16 16:45 (Desyrel) 100 mg HS PO 10/29/16 21:00 11/03/16 20:59 A/P Problem List: (1) Inguinal lymphadenopathy ICD Code: R59.0 (2) Failure to thrive in adult ICD Code: R62.7 (3) Diarrhea ICD Code: R19.7 (4) Protein-calorie malnutrition, moderate ICD Code: E44.0 Assessment and Plan 1. Chronic Diarrhea status post CT abdomen/pelvis with finding of Right iliac and inguinal lymphadenopathy. Correlate with possible infectious/inflammatory process in the right lower extremity. Otherwise concerning for neoplasm. - C diff PCR negative, stool culture for Ova and Parasite, Cyclospora and crypto in his stool all negative -LDH elevated however tumor markers including AFP, CEA, Ca19-9 all within normal limits - HIV antigen/antibodies negative -CT chest/thorax noted and review with finding of pneumonic infiltrates Following biopsy result, okay to discharge as per client relation specialist -Appreciate input from Oncology -cleared for discharge and follow in 2 weeks. also follow by doctor Gunner Ramos. -appreciate input from gastroenterology and recommend outpatient panendoscopy -Status post Uncomplicated ultrasound guided needle biopsy 10/30/16 pending pathology report 2. Pulmonic infiltrate on CT chest and CHEST X-RAY: Patient is afebrile and no cough symptoms,.therefore we have been holding on starting any antibiotics 3. Protein calorie nutrition-moderate: Secondary to diarrhea versus occult malignancy. Continue with Ensure. 4. Depression/Insomnia: Continue outpatient medication DVT prophylaxis: B-SCD Okay to discharge and follow GI and Oncology as outpatient. Discharge Planning Discharge Home. Omid Carey MD Nov 04, 2016 09:27
[2016-11-04] MEDS ORDERED: HYDR-3516 PO (11:57)
[2016-11-04 12:00] VITALS: BP 116/67; PULSE 73; RESP 18; TEMP 98; O2SAT 95
--- NOTE | 2016-11-04 12:16 | HHI.DS ---
Discharge Summary Admission Date Oct 29, 2016 at 15:51 Discharge Date: Nov 04, 2016 Admitting Diagnosis failure to thrive, occult neoplasm, dehydration (1) Inguinal lymphadenopathy ICD Code: R59.0 Diagnosis: Principal (2) Failure to thrive in adult ICD Code: R62.7 Diagnosis: Principal (3) Occult malignancy ICD Code: C80.1 Diagnosis: Secondary (4) Generalized maculopapular rash ICD Code: R21 Diagnosis: Secondary (5) Neutropenia ICD Code: D70.9 Diagnosis: Secondary (6) Diarrhea ICD Code: R19.7 Diagnosis: Principal (7) Impaired fasting glucose ICD Code: R73.01 Diagnosis: Secondary (8) Protein-calorie malnutrition, moderate ICD Code: E44.0 Diagnosis: Principal Procedures US guided biopsy of left inguinal Lymph node Brief History - From Admission 66-year-old male with a history of panic attack, depression was advised by his PCP to seek medical attention to the ED for evaluation of 2-3 weeks history of chronic diarrhea described as loose stool happening 5 times a day associated with generalized maculopapular rash and approximately 30 pound weight loss without any complaint of abdominal pain or febrile episode. He also reports some appetite however denies any nausea or vomiting. Patient denies any recent travel as well or sick contact. Abnormal labs include WBC 3.3 and AST of 64. Abdomen/Pelvis CT with finding of inguinal lymphadenopathy. Patient denies any GI bleed and cities has his last colonoscopy over 5 years ago which was read as within normal limits. Imaging Last Impressions Lymph Node Biopsy Ultrasound 10/30/16 0000 Signed Impressions: Service Date/Time: October 11:19 - CONCLUSION: Uncomplicated ultrasound guided needle biopsy. 2-18 gauge cores were obtained. Moreno Wilson MD Chest X-Ray 10/29/16 0000 Signed Impressions: Service Date/Time: Saturday, October 29, 2016 17:19 - CONCLUSION: Bilateral infiltrates. Zeb Guan MD Chest CT 10/29/16 0000 Signed Impressions: Service Date/Time: Saturday, October 29, 2016 17:17 - CONCLUSION: 1. Airspace disease most prominent in the left posterior perihilar distribution involving the superior segment of the left lower lobe. Smaller areas of parenchymal density in both upper lobes. Findings are most characteristic of a pneumonic infiltrate. I would recommend a followup CT scan of the chest in a few weeks after therapy to ensure resolution, however. 2. Atherosclerotic calcification of the coronary arteries Moreno Wilson MD Abdomen/Pelvis CT 10/29/16 0000 Signed Impressions: Service Date/Time: Saturday, October 29, 2016 14:30 - CONCLUSION: Right iliac and inguinal lymphadenopathy. Correlate with possible infectious/inflammatory process in the right lower extremity. Otherwise concerning for neoplasm. Nonspecific low density right lobe liver lesion. Zeb Guan MD PE at Discharge GENERAL:Emanciated patient in no acute distress SKIN: Warm and dry. HEAD: Normocephalic. EYES: No scleral icterus. No injection or drainage. NECK: Supple, trachea midline. + lymphadenopathy. CARDIOVASCULAR: Regular rate and rhythm without murmurs, gallops, or rubs. RESPIRATORY: Breath sounds equal bilaterally. No accessory muscle use. GASTROINTESTINAL: Abdomen soft, non-tender, nondistended. MUSCULOSKELETAL: No cyanosis, or edema. BACK: Nontender without obvious deformity. No CVA tenderness. Hospital Course This is a pleasant 66 y/o Male with no significant past medical history who came to ER with diarrhea for three weeks, lost 30 pounds, He has no chest pain, palpitations, shortness of breath or cough. no nausea, vomiting, or abdominal pain. Denies any change in bowel habits. Denies any dysuria or hematuria. His CT of the chest showed possible bilateral pneumonia, although clinically he has no pulmonary symptom. CT of the abdomen and pelvis showed some enlarged lymph nodes in the right inguinal and right iliac, on 10/31/16 had US guided needle biopsy of Lymph node. seen in his bedroom, discussed with nurse Miss Ward Seen by Hematology and portfolio specialist, with Diagnosis of Inguinal Lymphadenopathy, status post biopsy inguinal lymph node, --CT abdomen and pelvis showed right iliac and inguinal lymphadenopathy. no significant adenopathy noted in the thorax. There was a nonspecific density in the right hepatic lobe. --tumor marker AFP, CEA and CA19-9 were all normal. LDH is elevated. his Diarrhea resolved. to follow Doctor Gunner Ramos GI specialist as outpatient, has also History of Panic attack, Hyperlipidemia, spinal tap, ORIF of the left hip and arm. excision of Blanco's cyst, Cleared for discharge by client technologies specialist, follow up in two weeks. Assessment and Plan 1. Chronic Diarrhea status post CT abdomen/pelvis with finding of Right iliac and inguinal lymphadenopathy. Correlate with possible infectious/inflammatory process in the right lower extremity. Otherwise concerning for neoplasm. - C diff PCR negative, stool culture for Ova and Parasite, Cyclospora and crypto in his stool all negative -LDH elevated however tumor markers including AFP, CEA, Ca19-9 all within normal limits - HIV antigen/antibodies negative -CT chest/thorax noted and review with finding of pneumonic infiltrates Following biopsy result, okay to discharge as per portfolio specialist -Appreciate input from Oncology -cleared for discharge and follow in 2 weeks. also follow by doctor Gunner Ramos. -appreciate input from gastroenterology and recommend outpatient panendoscopy -Status post Uncomplicated ultrasound guided needle biopsy 10/30/16 pending pathology report 2. Pulmonic infiltrate on CT chest and CHEST X-RAY: Patient is afebrile and no cough symptoms,.therefore we have been holding on starting any antibiotics 3. Protein calorie nutrition-moderate: Secondary to diarrhea versus occult malignancy. Continue with Ensure. 4. Depression/Insomnia: Continue outpatient medication DVT prophylaxis: B-SCD Okay to discharge and follow GI and Oncology as outpatient. Discharge Planning Discharge Home. Pt Condition on Discharge: Stable Discharge Disposition: Discharge Home Discharge Time: > 30 minutes Discharge Instructions DIET: Follow Instructions for: As Tolerated, No Restrictions Activities you can perform: Regular-No Restrictions Omid Carey MD Nov 04, 2016 12:16
== END 2016-11-04 13:00 | disposition home or self-care (01) | DRG 629 ==
LOC: NEPE 11:44 → NEDA 15:51 → N04B 20:15
PROVIDERS: ADMIT Internal Medicine; ATTEND Internal Medicine
PROC: 07BJ3ZX Excision of Left Inguinal Lymphatic, Percutaneous Approach, Diagnostic (ICD-10-PCS; principal; 2016-10-30)
DX: R62.7 Adult failure to thrive (principal); E44.0 Moderate protein-calorie malnutrition; C80.1 Malignant (primary) neoplasm, unspecified; Z68.1 Body mass index [BMI] 19.9 or less, adult; D70.9 Neutropenia, unspecified; E86.0 Dehydration; F32.9 Major depressive disorder, single episode, unspecified; R59.0 Localized enlarged lymph nodes; R19.7 Diarrhea, unspecified; E87.6 Hypokalemia; K76.9 Liver disease, unspecified; G47.00 Insomnia, unspecified; R21 Rash and other nonspecific skin eruption; R73.01 Impaired fasting glucose; F17.290 Nicotine dependence, other tobacco product, uncomplicated; Z96.642 Presence of left artificial hip joint
CPT/HCPCS: 38505; 71010; 71250; 74177; 76942; 80053; 82105; 82378; 82607; 82728; 82746; 83036; 83540; 83550; 83615; 85025; 85044; 86140; 86301; 86703; 87207; 87328; 87329; 87493; 88184; 88185; 88305; 88341; 88342; 96360; J7030; Q9967

== ENCOUNTER 2016-11-16 04:32 | Inpatient (IN) | payer MEDICARE, BC, OTHER ==
[2016-11-16] VITALS (13 sets, daily range): BP systolic 98–152; BP diastolic 57–101; PULSE 83–140; RESP 16–19; TEMP 96.2–99.1; O2SAT 93–100
[~2016-11-16] VITALS: Ht 170.2 cm; Wt 50.0 kg
[~2016-11-16 04:32] MED LIST changes: -ATOR80TA PO; -CITA-48 PO; -CLON1TAB PO; -CYCL1PAK PO; +FOSA70TA PO; -GABA100C4 PO; +HYDR-3516 PO; -LORTA5 PO; -QUET25 PO; -ROSU40 PO; -TIZA4CAP PO; +TRAZ100T4 PO; -VENL75CA44 PO
[2016-11-16] MEDS ORDERED: ONDANSETRON HCL 4 MG/2 ML VIAL IV ONE (04:45)
[2016-11-16] MEDS ORDERED: SODIUM CHLOR 0.9% 1000 ML INJ 1,000 ML IV ONE ×2 (04:45)
[2016-11-16] MEDS ORDERED: VENL50TA PO (05:12)
--- NOTE | 2016-11-16 05:16 | RADRPT ---
EXAM DATE/TIME: 11/16/2016 04:39 [facility] COMPARISON: CHEST SINGLE AP, October 29, 2016, 17:19. INDICATIONS : Shortness of breath. MEDICAL HISTORY : Gastroesophageal reflux disease. Smoker. SURGICAL HISTORY : None. ENCOUNTER: Initial ACUITY: 1 month PAIN SCORE: 0/10 LOCATION: Bilateral chest FINDINGS: The heart size is normal. The lungs are hyperinflated. There is some enlargement of the left hilar re gion. There is a questionable nodular area in the right upper lung. The lungs are otherwise clear. No effusion is seen. CONCLUSION: 1. Enlargement of the left hilum and questionable nodule in the right upper lung. These findings shou ld be further evaluated with a CT examination of the chest ideally with contrast at some point. 2. Hyperinflated lungs likely related to COPD. Zeb Grier MD on November 16, 2016 at 5:12 Board Certified Radiologist. This report was verified electronically.
[2016-11-16 05:23] LABS: AUTOMATED NEUTROPHIL # 2.7 TH/MM3 (1.8-7.7); BASOPHIL % 0.2 % (0.0-2.0); EOSINOPHIL % 0.3 % (0.0-4.0); HEMATOCRIT 40.1 % (39.0-51.0); LYMPH % 16.3 % (9.0-44.0); LYMPHOCYTE # 0.6 TH/MM3 (1.0-4.8); MEAN CELL VOLUME 84.2 FL (80.0-100.0); MEAN CORPUSCULAR HEMOGLOBIN 28.7 PG (27.0-34.0); MEAN CORPUSCULAR HGB CONC 34.1 % (32.0-36.0); MONO % 4.5 % (0.0-8.0); NEUT % 78.7 % (16.0-70.0); RED BLOOD COUNT 4.77 MIL/MM3 (4.50-5.90); RED CELL DISTRIBUTION WIDTH 13.8 % (11.6-17.2); WHITE BLOOD COUNT 3.4 TH/MM3 (4.0-11.0)
[2016-11-16 05:46] LABS: HEMO FLAGS AUTO DIFF
[2016-11-16 05:48] LABS: PLATELET COUNT 3 TH/MM3 (150-450)
--- NOTE | 2016-11-16 05:59 | PD ---
HPI Chief Complaint: General Weakness Time Seen by Provider: 04:34 Travel History International Travel<30 days: No Contact w/Intl Traveler<30days: No Traveled to known affect area: No History of Present Illness HPI This 66-year-old male presents to the emergency department complaining of generalized weakness. He had been an otherwise fairly healthy mariangel until he was admitted to the hospital October 29 for chronic diarrhea weight loss or suspected occult malignancy. He was found to have bulky lymphadenopathy which was biopsied. Pathology was pending prior to discharge but he was discharged with outpatient follow-up with oncology about 8 days ago. Since that time she's had progressive worsening weakness. Over the past 24 she's not been able to get out of bed. He is not been able to eat or drink. He called the ambulance [facility]. EMS found him covered in feces, and his bed. Denies any other associated symptoms. No other complaints. History Past Medical History Narrative Medical New diagnosis lymphoma Social History Alcohol Use: Yes (socially) Tobacco Use: Yes (cigars) Allergies-Medications (Allergen,Severity, Reaction): Uncoded Allergies: TYPHOID (Allergy, Severe, Anaphylaxis, 06/28/13) Reported Meds & Prescriptions Reported Meds & Active Scripts Active Reported Effexor (Venlafaxine HCl) 50 Mg Tab 50 Mg PO Q12H Fosamax (Alendronate Sodium) 70 Mg Tab 70 Mg PO Q7D Trazodone (Trazodone HCl) 100 Mg Tab 100 Mg PO HS Review of Systems Except as stated in HPI: all other systems reviewed are Neg Physical Exam Narrative GENERAL: 66-year-old man, appears overtly dehydrated. Decreased skin turgor. SKIN: Focused skin assessment warm/dry. Decreased skin turgor. HEAD: Atraumatic. Normocephalic. EYES: Pupils equal and round. No scleral icterus. No injection or drainage. ENT: No nasal bleeding or discharge. Mucous membranes pink and moist. NECK: Trachea midline. No JVD. CARDIOVASCULAR: Regular rate and rhythm. No murmur appreciated. RESPIRATORY: No accessory muscle use. Clear to auscultation. Breath sounds equal bilaterally. GASTROINTESTINAL: Abdomen soft, non-tender, nondistended. Hepatic and splenic margins not palpable. MUSCULOSKELETAL: No obvious deformities cachectic. NEUROLOGICAL: Awake and alert. No obvious cranial nerve deficits. Motor grossly within normal limits. Normal speech. Data Data Last Documented VS Vital Signs Date Time Temp Pulse Resp B/P Pulse Ox O2 Delivery O2 Flow Rate FiO2 11/16/16 06:00 104 18 125/72 100 Room Air 11/16/16 04:50 98.8 Orders Complete Blood Count With Diff (11/16/16 04:41) Comprehensive Metabolic Panel (11/16/16 04:41) Urinalysis - C+S If Indicated (11/16/16 04:41) Iv Access Insert/Monitor (11/16/16 04:41) Creatine Kinase (Cpk) (11/16/16 04:41) Chest, Single Ap (11/16/16 ) Sodium Chlor 0.9% 1000 Ml Inj (Ns 1000 M (11/16/16 04:45) Sodium Chlor 0.9% 1000 Ml Inj (Ns 1000 M (11/16/16 04:45) Ondansetron Inj (Zofran Inj) (11/16/16 04:45) Lactic Acid Sepsis Protocol (11/16/16 04:58) Blood Culture (11/16/16 04:58) Enteric Path (Stool) (11/16/16 05:18) C Diff Toxin Pcr (11/16/16 05:18) Type And Screen (11/16/16 06:38) Platelet Pheresis (11/16/16 06:38) Blood Product Administration .UPON TRANSFUSION (11/16/16 06:38) Sodium Chlor 0.9% 250 Ml Inj (Ns 250 Ml (11/16/16 06:45) Admit Order (Ed Use Only) (11/16/16 ) Consult Hematology (11/16/16 ) Admit To Inpatient (11/16/16 ) Vital Signs (Adult) Q4H (11/16/16 06:50) Activity Oob With Assistance (11/16/16 06:50) Intake + Output DESIREE.QSHIFT (11/16/16 06:50) Diet Regular Basic (11/16/16 Breakfast) Sodium Chlor 0.9% 1000 Ml Inj (Ns 1000 M (11/16/16 06:50) Sodium Chloride 0.9% Flush (Ns Flush) (11/16/16 07:00) Sodium Chloride 0.9% Flush (Ns Flush) (11/16/16 09:00) Ondansetron Inj (Zofran Inj) (11/16/16 07:00) Bisacodyl Supp (Dulcolax Supp) (11/16/16 07:00) Comprehensive Metabolic Panel (11/17/16 06:00) Complete Blood Count With Diff (11/17/16 06:00) Pharmacologic Contraindication (11/16/16 06:50) Acetaminophen (Tylenol) (11/16/16 07:00) Acetamin-Hydrocod 325-5 Mg (Tiro 5-325 (11/16/16 07:00) Morphine Inj (Morphine Inj) (11/16/16 07:00) Inpatient Certification (11/16/16 ) Labs Laboratory Tests Test 11/16/16 04:50 White Blood Count 3.4 TH/MM3 Red Blood Count 4.77 MIL/MM3 Hemoglobin 13.7 GM/DL Hematocrit 40.1 % Mean Corpuscular Volume 84.2 FL Mean Corpuscular Hemoglobin 28.7 PG Mean Corpuscular Hemoglobin 34.1 % Concent Red Cell Distribution Width 13.8 % Platelet Count 3 TH/MM3 Mean Platelet Volume 10.4 FL Neutrophils (%) (Auto) 78.7 % Lymphocytes (%) (Auto) 16.3 % Monocytes (%) (Auto) 4.5 % Eosinophils (%) (Auto) 0.3 % Basophils (%) (Auto) 0.2 % Neutrophils # (Auto) 2.7 TH/MM3 Lymphocytes # (Auto) 0.6 TH/MM3 Monocytes # (Auto) 0.2 TH/MM3 Eosinophils # (Auto) 0.0 TH/MM3 Basophils # (Auto) 0.0 TH/MM3 CBC Comment AUTO DIFF Sodium Level 135 MEQ/L Potassium Level 4.3 MEQ/L Chloride Level 101 MEQ/L Carbon Dioxide Level 26.0 MEQ/L Anion Gap 8 MEQ/L Blood Urea Nitrogen 24 MG/DL Creatinine 0.79 MG/DL Estimat Glomerular Filtration 99 ML/MIN Rate Random Glucose 151 MG/DL Lactic Acid Level 2.2 mmol/L Calcium Level 7.5 MG/DL Total Bilirubin 1.1 MG/DL Aspartate Amino Transf 68 U/L (AST/SGOT) Alanine Aminotransferase 59 U/L (ALT/SGPT) Alkaline Phosphatase 130 U/L Total Creatine Kinase 212 U/L Total Protein 5.7 GM/DL Albumin 2.2 GM/DL [facility] Medical Decision Making Medical Screen Exam Complete: Yes Emergency Medical Condition: Yes Interpretation(s) LABS: CBC remarkable for marked thrombocytopenia. CMP remarkable for elevated BUN, low protein Lactate 2.2 Stool cultures pending Chest x-ray: Enlargement of the left hilum possible nodule in the right upper lung. Differential Diagnosis Weakness, dehydration, renal failure, other Narrative Course Medical decision-making 66-year-old male with recently diagnosed lymphoma. I reviewed his recent pathology results showing high-grade lymphoma. He's had worsening fatigue and weakness. Labs show some dehydration and kidney injury but also with marked on the cytopenia. I spoke with Dr. Bolivar, regional training manager for oncology. Likely ITP. Recommends platelet transfusion 1 unit and then repeat platelet count. Patient will be admitted. Diagnosis Primary Impression: Lymphoma Additional Impression: Thrombocytopenia Admitting Information Admitting Physician Requests: it Octaviano Waldrop MD Nov 16, 2016 05:59
[2016-11-16 06:01] LABS: ALKALINE PHOSPHATASE 130 U/L (45-117); ALT (GPT) 59 U/L (12-78); ANION GAP 8 MEQ/L (5-15); AST (GOT) 68 U/L (15-37); BLOOD UREA NITROGEN 24 MG/DL (7-18); CHLORIDE 101 MEQ/L (98-107); CREATINE KINASE 212 U/L (39-308); GLOMERULAR FILTRATION RATE 99 ML/MIN (>89); SODIUM (NA) 135 MEQ/L (136-145); TOTAL BILIRUBIN ADULT 1.1 MG/DL (0.2-1.0)
[2016-11-16 06:12] LABS: POTASSIUM 4.3 MEQ/L (3.5-5.1)
[2016-11-16] MEDS ORDERED: SODIUM CHLOR 0.9% 250 ML INJ 250 ML IV ONE (06:45)
[2016-11-16] MEDS ORDERED: BISACODYL 10 MG SUPP RECTAL PRN (07:00)
[2016-11-16] MEDS ORDERED: ONDANSETRON HCL 4 MG/2 ML VIAL IVP PRN (07:00)
[2016-11-16] MEDS ORDERED: SODIUM CHLORIDE 0.9% FLUSH 10 ML FLUSH IV FLUSH PRN (07:00)
[2016-11-16] MEDS ORDERED: ACETAMINOPHEN/HYDROcodone 325 MG/5 MG TAB PO PRN (07:00)
[2016-11-16] MEDS ORDERED: ACETAMINOPHEN 325 MG TAB PO PRN (07:00)
[2016-11-16 07:15] LABS: LACTIC ACID GHOST NOT REPORTABLE
[2016-11-16 07:18] LABS: BANDS 7 % (0-6); EOSINOPHILS 1 % (0-4); MYELOCYTES 1 % (0-0); NEUTROPHIL # MANUAL DIFF 2.8 TH/MM3 (1.8-7.7); POLYS (SEG NEUTROPHILS) 74 % (16-70); WBC DIFF SAMPLE 100
[2016-11-16 07:19] LABS: BURR CELLS 1+ (NORMAL); OVALOCYTES 1+ (NORMAL); PLATELET ESTIMATE SMEAR RARE (NORMAL); PLATELET MORPHOLOGY NORMAL (NORMAL); SCAN/DIFF FINAL DIFF MANUAL
[2016-11-16 08:29] LABS: C. DIFF EPI 027 PRESUMPTIVE NEGATIVE (NEGATIVE); C. DIFF TOXIN PCR NEGATIVE (NEGATIVE)
--- NOTE | 2016-11-16 08:32 | HHI.HP ---
cc: Mandeep Ragland MD [facility] Service [facility] Primary Care Physician Mandeep Ragland MD Admission Diagnosis dehydration, normocytic anemia, lymphoma Diagnoses: (1) Thrombocytopenia Diagnosis: Principal (2) Lymphoma (3) Dehydration (4) Lactic acidosis (5) Depression (6) SIRS (systemic inflammatory response syndrome) Chief Complaint: Generalized weakness Travel History International Travel<30 Days: No Contact w/Intl Traveler <30 Da: No Traveled to Known Affected Are: No Sepsis Criteria SIRS Criteria (2 or more): Heart rate over 90, WBC > 33288, < 4000 or > 10% bands Severe Sepsis (+one): Lactate >2 Criteria Outcome: Meets SIRS criteria History of Present Illness The patient is a 66-year-old male with recent diagnosis of lymphoma. He presented to the emergency department complaining of generalized weakness. He states that he was short of breath as well. Dyspnea has resolved. He states that he has not been able to eat or drink normally for the past few months. He has been incredibly weak for the past 1-2 days. He has not been able to get out of bed. Per the ER report, the patient was found by EMS to be covered in feces. Review of Systems Constitutional: DENIES: Fever, Chills, Night Sweats Eyes: DENIES: Blurred vision, Vision loss Ears, nose, mouth, throat: DENIES: Hearing loss Respiratory: COMPLAINS OF: Shortness of breath, DENIES: Cough, Wheezing, Sputum production Cardiovascular: DENIES: Chest pain, Palpitations, Dyspnea on Exertion, Lower Extremity Edema Gastrointestinal: COMPLAINS OF: Constipation, Diarrhea, Nausea, Vomiting, DENIES: Abdominal pain Genitourinary: DENIES: Urinary frequency, Urinary incontinence, Urgency, Hematuria, Dysuria, Nocturia Musculoskeletal: DENIES: Joint pain, Muscle aches Integumentary: DENIES: Pruritus, Rash Hematologic/lymphatic: DENIES: Bruising Neurologic: DENIES: Headache Past Family Social History Past Medical History Lymphoma Hyperlipidemia Depression Past Surgical History ORIF left hip ORIF left arm Reported Medications Effexor (Venlafaxine HCl) 50 Mg Tab 50 Mg PO Q12H Fosamax (Alendronate Sodium) 70 Mg Tab 70 Mg PO Q7D Trazodone (Trazodone HCl) 100 Mg Tab 100 Mg PO HS Allergies: Uncoded Allergies: TYPHOID (Allergy, Severe, Anaphylaxis, 06/28/13) Family History Father had COPD. Mother had dementia. Social History Patient quit smoking cigarettes 40 years ago. Had smoked 2-3 cigars daily until a couple months ago. Reports history of heavy alcohol use, but no longer drinks alcohol. Denies illicit drug use. Physical Exam Vital Signs Vital Signs Date Time Temp Pulse Resp B/P Pulse Ox O2 Delivery O2 Flow Rate FiO2 11/16/16 08:12 98.3 98 16 121/73 98 11/16/16 06:00 104 18 125/72 100 Room Air 11/16/16 05:12 135 18 152/101 100 Room Air 11/16/16 04:50 98.8 140 18 142/81 100 Physical Exam GENERAL: Disheveled elderly male in no acute distress. HEENT: Normocephalic, atraumatic. Pupils equal, round and reactive. Extraocular movements intact. No scleral icterus. No injection or drainage. Oropharynx is clear. Mucous membranes are somewhat dry. CARDIOVASCULAR: Regular rate and rhythm without murmurs, gallops, or rubs. RESPIRATORY: Clear to auscultation. No wheezes, rales, or rhonchi. Breathing is non-labored. GASTROINTESTINAL: Abdomen soft, non-tender, nondistended. EXTREMITIES: No lower extremity edema. No calf tenderness. PSYCH: Alert and oriented x 3. Laboratory Laboratory Tests Test 11/16/16 11/16/16 04:50 07:30 White Blood Count 3.4 Red Blood Count 4.77 Hemoglobin 13.7 Hematocrit 40.1 Mean Corpuscular Volume 84.2 Mean Corpuscular Hemoglobin 28.7 Mean Corpuscular Hemoglobin 34.1 Concent Red Cell Distribution Width 13.8 Platelet Count 3 Mean Platelet Volume 10.4 Neutrophils (%) (Auto) 78.7 Lymphocytes (%) (Auto) 16.3 Monocytes (%) (Auto) 4.5 Eosinophils (%) (Auto) 0.3 Basophils (%) (Auto) 0.2 Neutrophils # (Auto) 2.7 Lymphocytes # (Auto) 0.6 Monocytes # (Auto) 0.2 Eosinophils # (Auto) 0.0 Basophils # (Auto) 0.0 CBC Comment AUTO DIFF Differential Total Cells 100 Counted Neutrophils % (Manual) 74 Band Neutrophils % 7 Lymphocytes % 12 Monocytes % 5 Eosinophils % 1 Neutrophils # (Manual) 2.8 Myelocytes 1 Differential Comment FINAL DIFF MANUAL Platelet Estimate RARE Platelet Morphology Comment NORMAL Ovalocytes 1+ Alicia Cells 1+ Sodium Level 135 Potassium Level 4.3 Chloride Level 101 Carbon Dioxide Level 26.0 Anion Gap 8 Blood Urea Nitrogen 24 Creatinine 0.79 Estimat Glomerular Filtration 99 Rate Random Glucose 151 Lactic Acid Level 2.2 Calcium Level 7.5 Total Bilirubin 1.1 Aspartate Amino Transf 68 (AST/SGOT) Alanine Aminotransferase 59 (ALT/SGPT) Alkaline Phosphatase 130 Total Creatine Kinase 212 Total Protein 5.7 Albumin 2.2 Blood Type A NEGATIVE A NEGATIVE Antibody Screen NEGATIVE Blood Bank Comment Date/Time Procedure Status Source Growth 11/16/16 04:55 Aerobic Blood Culture Received Blood Peripheral Pending 11/16/16 04:55 Anaerobic Blood Culture Received Blood Peripheral Pending Result Diagram: 11/16/16 0450 11/16/16 0450 Imaging Last Impressions Chest X-Ray 11/16/16 0000 Signed Impressions: Service Date/Time: Wednesday, November 16, 2016 04:39 - CONCLUSION: 1. Enlargement of the left hilum and questionable nodule in the right upper lung. These findings should be further evaluated with a CT examination of the chest ideally with contrast at some point. 2. Hyperinflated lungs likely related to COPD. Zeb Grier MD Assessment and Plan Assessment and Plan 1. Severe thrombocytopenia: Possibly ITP. Appreciate hematology/oncology recommendations. Platelet transfusion ordered. 2. Lymphoma: Management per oncology. 3. Dehydration: BUN is elevated. Continue IV fluids. 4. Lactic acidosis: Monitor serum lactic acid level. Continue IV hydration. 5. Depression: Continue Effexor, trazodone. 6. Abnormal chest x-ray: Check CT of the chest. 7. Generalized weakness: PT eval. 8. DVT prophylaxis: SCDs, ANGIE hose. Avoid chemical prophylaxis secondary to severe thrombocytopenia. Code Status Full code. The patient states that he wants to discuss this with his brother, who is his DURABLE POWER OF FIRE CHIEF'S AIDE, before changing his CODE STATUS. John Wallace MD Nov 16, 2016 08:32
[2016-11-16] MEDS ORDERED: ACETAMINOPHEN 325 MG TAB PO ONE ×2 (08:45→18:30)
[2016-11-16] MEDS ORDERED: diphenhydrAMINE HCL 25 MG CAP PO ONE ×2 (08:45→18:30)
[2016-11-16] MEDS: SODIUM CHLOR 0.9% 1000 ML INJ 1,000 ML IV SCH ×2 (08:56→17:33)
[2016-11-16] MEDS ORDERED: IOHEXOL 350 MG/ML 10 ML VIAL (for RAD DIAG) IV ONE (09:40)
--- NOTE | 2016-11-16 10:37 | RADRPT ---
EXAM DATE/TIME: 11/16/2016 09:39 [facility] COMPARISON: CT THORAX W/O CONTRAST, October 29, 2016, 17:17. INDICATIONS : Abnormal chest x-ray; right upper lung nodule. IV CONTRAST: 65 cc Omnipaque 350 (iohexol) IV RADIATION DOSE: 5.86 CTDIvol (mGy) MEDICAL HISTORY : Lymphoma. SURGICAL HISTORY : None. ENCOUNTER: Initial ACUITY: 1 day PAIN SCALE: 0/10 LOCATION: Bilateral chest TECHNIQUE: Volumetric scanning of the chest was performed. Using automated exposure control and adjustment of t he mA and/or kV according to patient size, radiation dose was kept as low as reasonably achievable to obtain optimal diagnostic quality images. FINDINGS: LUNGS: The lungs are significant for worsening airspace consolidation involving the apical segment of the le ft lower lobe as well as interval enlargement of a similar area of rounded airspace consolidation inv olving the left upper lobe measure less than 1 cm on the current exam is compared to 7 mm on the prio r exam. The nodular airspace opacity identified in the right upper lobe appears slightly smaller than the prior exam. This difference may be secondary to degree of inhalation. PLEURA: There is no pleural thickening or pleural effusion. MEDIASTINUM: There is subcarinal, prevascular and bilateral hilar adenopathy. There is abnormal soft tissue extend ing along the left pulmonary artery and veins in the area of airspace consolidation. AXILLAE: Bilateral bulky adenopathy which appears progressed as compared to the prior exam. SKELETAL: Within normal limits for patient age. MISCELLANEOUS: The visualized upper abdominal organs demonstrate no acute abnormality. CONCLUSION: Overall worsening axillary, hilar and mediastinal adenopathy and airspace consolidative processes. Gi tyree the patient's prior history of lymphoma this is most consistent with recurrent versus worsening l ymphoma. Marce Rajput MD on November 16, 2016 at 10:24 Board Certified Radiologist. This report was verified electronically.
[2016-11-16] MEDS: MORPHINE SULFATE 4 MG/ML INJ IV PRN ×3 (10:54→22:27)
[2016-11-16] MEDS: SODIUM CHLORIDE 0.9% FLUSH 10 ML FLUSH IV FLUSH SCH ×2 (11:00→20:13)
[2016-11-16] MEDS ORDERED: LIDOCAINE HCL 1% 20 ML VIAL INFIL ONE (11:15)
[2016-11-16 11:20] LABS: TOTAL BILIRUBIN ADULT 1.2 MG/DL (0.2-1.0)
[2016-11-16 11:24] LABS: INDIRECT BILIRUBIN 0.9 MG/DL (0.0-0.8)
[2016-11-16] MEDS ORDERED: LORazepam 2 MG/ML VIAL IV PUSH ONE (11:45)
[2016-11-16] MEDS ORDERED: MORPHINE SULFATE 4 MG/ML INJ IV PUSH ONE (11:45)
[2016-11-16 13:20] LABS: BONE MARROW PROCESSING COMPLETE; IRON STAIN DONE; JENNER GIEMSA STAIN DONE
--- NOTE | 2016-11-16 14:07 | MB ---
cc: OCTAVIANO WALDROP MD, RUBY ANNE E. M.D. DATE OF CONSULTATION: 11/16/2016. REASON FOR CONSULTATION: Dr. Waldrop requested consultation for Mr. Sadler regarding severe thrombocytopenia. REFERRING PHYSICIAN: Dr. Octaviano Waldrop. HISTORY OF PRESENT ILLNESS: Mr. Sadler is a 66-year-old man well-known patient to Dr. Gregg Booth. He was seen by Dr. Booth on October 30, 2016 with constitutional symptoms and adenopathy. He has had a decrease in his performance status over the last several months. He is unable to live independently. He was quite fatigued. During the hospitalization and workup, he had imaging study. CT scan of the chest shows air space disease in the left posterior perihilar distribution. There is atherosclerotic calcification. The CT scan of the abdomen and pelvis was significant for prominent right iliac and inguinal adenopathy. Ultrasound-guided lymph node biopsy was performed on 10/30/2016. Pathology was pending at the time of the patient's discharge. The pathology came back as a malignant lymphoma high-grade. Unfortunately insufficient tissue was available to do ALK protein analysis to rule out ALK-positive large-cell lymphoma. Mr. Sadler presented back to the emergency room with generalized weakness. He reports that his lymph node persists. He has skin changes and bruising that predates his admission today. He was found to have a significant thrombocytopenia with a platelet count of 3000. For this reason he was admitted promptly. He was transfused single donor platelets with a repeat platelet count to evaluate for his recovery. Mr. Sadler denies any overt bleeding. He has had impressive bruising. This is even while his platelet count was in the 200,000 range at the time of his admission and discharge October 30. He does not note any increase in bleeding tendency. Denies any melena or bright red blood per rectum. Denies any hematuria. He has extensive bruising and red thompson on the skin. He has a headache since treatment a dry skin. His power of assistant district attorney is his brother. He reports being too fatigued to be able to care for himself. He maintains a cynical and dry sense of humor during the consultation. He denies any fevers, chills or night sweats. He denies any headaches. No vision changes. PAST MEDICAL HISTORY: 1. Large cell lymphoma. 2. Thrombocytopenia. 3. Depression 4. Panic attack. 5. Hyperlipidemia. PAST SURGICAL HISTORY: 1. Ultrasound-guided right inguinal lymph node biopsy. 2. Spinal tap. 3. Open reduction internal fixation left hip and left arm. 4. Excision of Blanco's cyst. FAMILY HISTORY: Father of COPD. Mother of dementia. He has two daughters. He is looking to transfer to a .A long-term. SOCIAL HISTORY: He smoked one to two cigars a day. He has a 16 pack-year smoking history quitting 30 years ago. He denies any alcohol or illicit drug use. 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 ALLERGIES: NO KNOWN DRUG ALLERGIES. CURRENT MEDICATIONS: 1. Morphine p.r.n. MEDICATIONS AT HOME: 1. Effexor. 2. Fosamax. 3. Trazodone. PHYSICAL EXAMINATION: VITAL SIGNS: Temperature 99.1, heart rate 99, respiratory rate 16, blood pressure 122/70, saturation 99%. GENERAL: Mr. Sadler is a cachectic and chronically ill-appearing man. He has dry skin all throughout. HEAD, EYES, EARS, NOSE, THROAT: His pupils are round and reactive to light and accommodation. Oropharynx is dry. There is a bruise on the right side of his nose. NECK: The neck is supple. LUNGS: Clear. CARDIOVASCULAR: Mild tachycardia. ABDOMEN: Flat. Scaphoid. Benign. Right inguinal lymph node still palpable. LOWER EXTREMITIES: No edema. There is significant bruising of his lower extremity, upper extremity, right hip. There is bruising and subcutaneous hematoma. Repeat CT scan of the chest showed worsening axillary hilar and mediastinal adenopathy and airspace consolidative process. CBC white blood cell count 3.4, hemoglobin 13.7, platelet count of 3000. Absolute neutrophil count 2700. Chemistry BUN of 24, creatinine 0.79. ASSESSMENT AND PLAN: Mr. Sadler is a 66-year-old man with newly diagnosed large cell lymphoma. He has extensive bruising uncertain if this is skin manifestation of his lymphoma. He had the changes in his skin which he reports predates the significant thrombocytopenia. We discussed staging evaluation for his lymphoma. A bone marrow biopsy will be coordinated today. We will determine if the lymphoma has involved his bone marrow furthermore ALK testing can be performed on the bone marrow specimen. In the meantime, we discussed the differential for the thrombocytopenia. Since he was recently admitted to the hospital, will check for heparin-induced thrombocytopenia antibody. This is quite unusual and too severe a thrombocytopenia associated with that. He has no overt bleeding. His spleen does not look enlarged. He has no other medication that may be suspect for causing the thrombocytopenia. I am unable to exclude ITP. His LDH is elevated but not to a significant degree to suggest a microangiopathic hemolytic process. Furthermore his hemoglobin is stable. His bilirubin is mildly elevated. This may be owing to the bruising particularly in his right hip. We discussed empiric treatment for ITP possibly mediated by his lymphoma. His mean platelet volume is increased. If he has no platelet recovery would be more in keeping with immune thrombocytopenic purpura and therefore IVIG will be administered. Aspirin and NSAIDs will be avoided. We will monitor closely for any signs of bleeding. Transfusion support will be provided and post platelet transfusion count checked. Further recommendations regarding treatment of his blood cell lymphoma deferred to Dr. Booth when he returns tomorrow. Mr. Sadler's questions were answered to his satisfaction. MD GONZALEZ Mtz/JCC /11:08 AM /1:53 PM [facility]
[2016-11-16 17:49] LABS: PLATELET COUNT 4 TH/MM3 (150-450)
[2016-11-16 18:03] LABS: WESTERGREN SEDIMENTATION RATE 17 mm/hr (0-20)
[2016-11-16 18:14] LABS: INTERNATIONAL NORMALIZED RATIO 1.2 RATIO; PROTHROMBIN TIME - PATIENT 13.3 SEC (9.8-11.6)
[2016-11-16] MEDS ORDERED: SODIUM CHLORID 0.9% 500 ML INJ 500 ML IV ONE (18:30)
[2016-11-16] MEDS ORDERED: IMMUNE GLOBULIN INJ 30 GM in SYRINGE/BAG 1 EA IV SCH (20:00)
[2016-11-16] MEDS: predniSONE 20 MG TAB PO SCH (20:13)
[2016-11-17] VITALS (14 sets, daily range): BP systolic 101–125; BP diastolic 60–72; PULSE 82–101; RESP 16–19; TEMP 96.1–98.5; O2SAT 93–100
[2016-11-17] MEDS: SODIUM CHLOR 0.9% 1000 ML INJ 1,000 ML IV SCH (04:00)
[2016-11-17 05:29] LABS: RETIC % 0.9 % (0.4-3.0)
[2016-11-17 05:35] LABS: AUTOMATED NEUTROPHIL # 1.7 TH/MM3 (1.8-7.7); BASOPHIL % 0.1 % (0.0-2.0); EOSINOPHIL % 0.1 % (0.0-4.0); HEMATOCRIT 26.9 % (39.0-51.0); LYMPH % 9.8 % (9.0-44.0); LYMPHOCYTE # 0.2 TH/MM3 (1.0-4.8); MEAN CELL VOLUME 84.8 FL (80.0-100.0); MEAN CORPUSCULAR HEMOGLOBIN 28.7 PG (27.0-34.0); MEAN CORPUSCULAR HGB CONC 33.9 % (32.0-36.0); MONO % 2.7 % (0.0-8.0); NEUT % 87.3 % (16.0-70.0); RED BLOOD COUNT 3.17 MIL/MM3 (4.50-5.90); WHITE BLOOD COUNT 1.9 TH/MM3 (4.0-11.0)
[2016-11-17 05:37] LABS: REVIEW FLAG FINAL
[2016-11-17 05:40] LABS: HEMO FLAGS AUTO DIFF
[2016-11-17 05:46] LABS: PLATELET COUNT 2 TH/MM3 (150-450)
[2016-11-17] MEDS ORDERED: diphenhydrAMINE HCL 25 MG CAP PO PRN (06:00)
[2016-11-17] MEDS ORDERED: ACETAMINOPHEN 325 MG TAB PO PRN (06:00)
[2016-11-17 06:13] LABS: BICARBONATE 22.5 MEQ/L (21.0-32.0); POTASSIUM 3.4 MEQ/L (3.5-5.1); TOTAL BILIRUBIN ADULT 0.9 MG/DL (0.2-1.0); TOTAL PROTEIN SPE 4.9 GM/DL (6.0-7.6)
[2016-11-17 06:17] LABS: CALCIUM-PROTEIN CORRECTED 7.4 MG/DL (8.5-10.1)
[2016-11-17 06:51] LABS: BANDS 11 % (0-6); NEUTROPHIL # MANUAL DIFF 1.8 TH/MM3 (1.8-7.7); POLYS (SEG NEUTROPHILS) 86 % (16-70); WBC DIFF SAMPLE 100
[2016-11-17 06:52] LABS: KERATOCYTES OCC (NORMAL)
[2016-11-17 06:53] LABS: PLATELET ESTIMATE SMEAR RARE (NORMAL); PLATELET MORPHOLOGY NORMAL (NORMAL)
[2016-11-17 06:54] LABS: OVALOCYTES 1+ (NORMAL); SCAN/DIFF FINAL DIFF MANUAL
[2016-11-17] MEDS: MORPHINE SULFATE 4 MG/ML INJ IV PRN ×3 (07:28→16:13)
[2016-11-17] MEDS: NS + KCL 20 MEQ INJ 1,000 ML IV SCH ×2 (08:32→20:55)
[2016-11-17] MEDS: SODIUM CHLORIDE 0.9% FLUSH 10 ML FLUSH IV FLUSH SCH ×2 (08:33→21:00)
[2016-11-17] MEDS: predniSONE 20 MG TAB PO SCH ×2 (08:33→21:00)
--- NOTE | 2016-11-17 08:43 | HHI.PR ---
Subjective Remarks Follow up thrombocytopenia, hypocalcemia. Patient states that he feels about the same as yesterday. Reports pain from bone marrow biopsy. Objective Vitals Vital Signs Date Time Temp Pulse Resp B/P Pulse Ox O2 Delivery O2 Flow Rate FiO2 11/17/16 08:00 96.1 88 16 115/70 96 11/17/16 06:52 97.1 88 16 104/61 98 11/17/16 06:41 96.2 90 19 113/72 96 11/17/16 04:00 96.5 86 16 112/69 96 11/17/16 03:00 96.1 82 16 107/67 95 11/17/16 02:00 96.3 88 16 112/68 95 11/17/16 01:00 96.6 86 16 111/72 96 11/17/16 00:00 96.6 90 16 121/71 96 11/16/16 23:00 96.5 92 19 109/65 95 11/16/16 22:45 96.4 90 18 105/66 93 11/16/16 22:30 96.2 95 16 110/57 95 11/16/16 22:15 98.1 96 16 99/70 96 11/16/16 22:00 96.4 98 16 111/74 95 11/16/16 16:00 97.2 90 16 125/84 99 11/16/16 12:00 96.9 83 16 98/64 98 11/16/16 08:57 99.1 99 16 122/70 99 I/O 11/16/16 11/16/16 11/16/16 11/17/16 11/17/16 11/17/16 07:00 15:00 23:00 07:00 15:00 23:00 Intake Total 660 ml 1054 ml 980 ml Output Total 600 ml Balance 660 ml 1054 ml 380 ml Intake Oral 360 ml 240 ml 480 ml IV Total 300 ml 800 ml 200 ml Other 14 ml 300 ml Output Urine Total 600 ml # Voids 1 1 1 # Bowel Movements 1 0 0 Result Diagram: 11/17/16 0500 11/17/16 0450 Imaging Last Impressions Chest X-Ray 11/16/16 0000 Signed Impressions: Service Date/Time: Wednesday, November 16, 2016 04:39 - CONCLUSION: 1. Enlargement of the left hilum and questionable nodule in the right upper lung. These findings should be further evaluated with a CT examination of the chest ideally with contrast at some point. 2. Hyperinflated lungs likely related to COPD. Zeb Grier MD Chest CT 11/16/16 0000 Signed Impressions: Service Date/Time: Wednesday, November 16, 2016 09:39 - CONCLUSION: Overall worsening axillary, hilar and mediastinal adenopathy and airspace consolidative processes. Given the patient's prior history of lymphoma this is most consistent with recurrent versus worsening lymphoma. Marce Rajput MD Procedures 11/16/16 bone marrow biopsy Urinary Catheter: No Vascular Central Line Catheter: No A/P Problem List: (1) Thrombocytopenia ICD Code: D69.6 Status: Acute (2) Lymphoma ICD Code: C85.90 Status: Acute (3) Dehydration ICD Code: E86.0 Status: Acute (4) Lactic acidosis ICD Code: E87.2 Status: Acute (5) Depression ICD Code: F32.9 Status: Acute (6) SIRS (systemic inflammatory response syndrome) ICD Code: R65.10 Status: Acute (7) Hypocalcemia ICD Code: E83.51 Status: Acute Assessment and Plan 1. Severe thrombocytopenia: Possibly ITP. Management per hematology/oncology. 2. Lymphoma: Management per oncology. 3. Dehydration: BUN is elevated. Continue IV fluids. 4. Lactic acidosis: Resolved. 5. Depression: Continue Effexor, trazodone. 6. Abnormal chest x-ray: CT of the chest shows likely worsening of lymphoma. 7. Generalized weakness: PT eval. 8. DVT prophylaxis: SCDs, ANGIE hose. Avoid chemical prophylaxis secondary to severe thrombocytopenia. 9. Hypocalcemia: Supplement calcium. Monitor on telemetry. 10. CODE STATUS: Full code. The patient states that he wants to discuss this with his brother, who is his DURABLE POWER OF HIDE INSPECTOR, before changing his CODE STATUS. John Wallace MD Nov 17, 2016 08:43
[2016-11-17] MEDS ORDERED: CALCIUM GLUCONATE INJ 1 GM in SODIUM CHLORIDE 0.9% INJ 100 ML IV ONE (09:00)
[2016-11-17] MEDS ORDERED: SODIUM CHLOR 0.9% 250 ML INJ 250 ML IV ONE (09:15)
[2016-11-17] MEDS ORDERED: Vancomycin Consult Pharmacy 1 EA OTHER SCH (10:45)
--- NOTE | 2016-11-17 12:08 | PD.ONC.PN ---
Subjective Subjective Remarks Afebrile overnight. Patient resting comfortably with brother at bedside. Denies overt bleeding. Tolerated unit of platelets this morning. Objective Data Date Time Temp Pulse Resp B/P Pulse Ox O2 Delivery O2 Flow Rate FiO2 11/17/16 08:00 96.1 88 16 115/70 96 11/17/16 06:52 97.1 88 16 104/61 98 11/17/16 06:41 96.2 90 19 113/72 96 11/17/16 04:00 96.5 86 16 112/69 96 11/17/16 03:00 96.1 82 16 107/67 95 11/17/16 02:00 96.3 88 16 112/68 95 11/17/16 01:00 96.6 86 16 111/72 96 11/17/16 00:00 96.6 90 16 121/71 96 11/16/16 23:00 96.5 92 19 109/65 95 11/16/16 22:45 96.4 90 18 105/66 93 11/16/16 22:30 96.2 95 16 110/57 95 11/16/16 22:15 98.1 96 16 99/70 96 11/16/16 22:00 96.4 98 16 111/74 95 11/16/16 16:00 97.2 90 16 125/84 99 11/17/16 11/17/16 11/17/16 07:00 15:00 23:00 Intake Total 980 ml Output Total 600 ml 225 ml Balance 380 ml -225 ml Result Diagram: 11/17/16 0500 11/17/16 0450 Laboratory Results Laboratory Tests Test 11/16/16 11/17/16 11/17/16 11/17/16 17:10 04:50 05:00 06:03 Platelet Count 4 TH/MM3 2 TH/MM3 Erythrocyte Sedimentation Rate 17 mm/hr Prothrombin Time 13.3 SEC Prothromb Time International 1.2 RATIO Ratio Activated Partial 34.0 SEC Thromboplast Time Fibrinogen 216 mg/dL Lactic Acid Level 1.6 mmol/L Blood Smear Pathologist Review Reticulocyte Count 0.9 % Absolute Reticulocyte Count 28.8 MIL/L Sodium Level 138 MEQ/L Potassium Level 3.4 MEQ/L Chloride Level 105 MEQ/L Carbon Dioxide Level 22.5 MEQ/L Anion Gap 11 MEQ/L Blood Urea Nitrogen 12 MG/DL Creatinine 0.45 MG/DL Estimat Glomerular Filtration 189 ML/MIN Rate Random Glucose 87 MG/DL Calcium Level 6.3 MG/DL Protein Corrected Calcium 7.4 MG/DL Total Bilirubin 0.9 MG/DL Aspartate Amino Transf 66 U/L (AST/SGOT) Alanine Aminotransferase 53 U/L (ALT/SGPT) Alkaline Phosphatase 109 U/L Lactate Dehydrogenase 1162 U/L Total Protein 4.9 GM/DL Albumin 1.5 GM/DL Immunoglobulin G Total 1630 MG/DL Immunoglobulin A 320 MG/DL Immunoglobulin M 69 MG/DL White Blood Count 1.9 TH/MM3 Red Blood Count 3.17 MIL/MM3 Hemoglobin 9.1 GM/DL Hematocrit 26.9 % Mean Corpuscular Volume 84.8 FL Mean Corpuscular Hemoglobin 28.7 PG Mean Corpuscular Hemoglobin 33.9 % Concent Red Cell Distribution Width 14.0 % Mean Platelet Volume 12.8 FL Neutrophils (%) (Auto) 87.3 % Lymphocytes (%) (Auto) 9.8 % Monocytes (%) (Auto) 2.7 % Eosinophils (%) (Auto) 0.1 % Basophils (%) (Auto) 0.1 % Neutrophils # (Auto) 1.7 TH/MM3 Lymphocytes # (Auto) 0.2 TH/MM3 Monocytes # (Auto) 0.1 TH/MM3 Eosinophils # (Auto) 0.0 TH/MM3 Basophils # (Auto) 0.0 TH/MM3 CBC Comment AUTO DIFF Differential Total Cells 100 Counted Neutrophils % (Manual) 86 % Band Neutrophils % 11 % Lymphocytes % 2 % Monocytes % 1 % Neutrophils # (Manual) 1.8 TH/MM3 Differential Comment FINAL DIFF MANUAL Platelet Estimate RARE Platelet Morphology Comment NORMAL Ovalocytes 1+ Keratocytes OCC Blood Type A NEGATIVE Direct Antiglobulin Test WEAKLY ([place]) POSITIVE Blood Bank Comment Test 11/17/16 09:15 Blood Bank Comment Culture Results Microbiology Date/Time Procedure Status Source Growth 11/16/16 04:50 Aerobic Blood Culture - Preliminary Resulted Blood Peripheral NO GROWTH IN 1 DAY 11/16/16 04:50 Anaerobic Blood Culture - Preliminary Resulted Blood Peripheral NO GROWTH IN 1 DAY 11/16/16 04:55 Aerobic Blood Culture - Preliminary Resulted Blood Peripheral Staph Sp Coagulase Negative 11/16/16 04:55 Anaerobic Blood Culture - Preliminary Resulted Blood Peripheral NO GROWTH IN 1 DAY Administered Medications Medications (Trade) Dose Ordered Sig/Tricia Route PRN Reason Start Time Stop Time Status Last Admin Dose Admin Sodium Chloride (NS Flush) 2 ml BID IV FLUSH 11/16/16 09:00 11/17/16 08:33 Morphine Sulfate 2 mg 2 mg Q3H PRN IV Pain 6-10 11/16/16 07:00 11/17/16 07:28 Immune Globulin/ Syringe / Bag (Privigen Inj/ Syringe/Bag) 300 ml @ 13.65 mls/ hr Q24H IV 11/16/16 20:00 11/17/16 17:59 11/16/16 21:42 Prednisone 20 mg 20 mg BID PO 11/16/16 21:00 11/17/16 08:33 Potassium Chloride/Sodium Chloride (NS + KCl 20 Meq Inj) 1,000 ml @ 84 mls/hr [id number] IV 11/17/16 09:00 11/17/16 08:32 Objective Remarks GENERAL: Middle aged male, lying supine in bed, appears weak SKIN: Warm and dry. +dry skin HEAD: Normocephalic. EYES: No injection or drainage. NECK: Supple, trachea midline. CARDIOVASCULAR: Regular rate and rhythm RESPIRATORY: Breath sounds equal bilaterally. No accessory muscle use. GASTROINTESTINAL: Abdomen soft, non-tender, nondistended. EXTREMITIES: No cyanosis NEUROLOGICAL: No obvious focal deficit. Awake, alert, and oriented x3. Assessment/Plan Problem List: (1) Malignant lymphoma, high grade Status: Acute Plan: --s/p bone marrow biopsy, awaiting pathology --will need to start R-CHOP once sepsis resolves (2) Sepsis Status: Acute Plan: --BC + GPR --started on Vancomycin, --ID consulted Assessment 66y/o with malignant high grade lymphoma admitted with weakness. h/o Thrombocytopenia. Depression Panic attack. Hyperlipidemia. Plan 1. give 2 units platelets today 2. will start Vancomycin for +BC 3. await results of bone marrow biopsy 4. plan to start R-CHOP once patient/POA consents and sepsis has resolved. Attending Statement The exam, history, and the medical decision-making described in the above note were completed with the assistance of the mid-level provider. I reviewed and agree with the findings presented. I attest that I had a [id number] encounter with the patient on the same day, and personally performed and documented my assessment and findings in the medical record. Pt seen and examined in AM. Noted no response to IVIG, platelet still low in AM. Discussed with Dr. Booth, preparation for chemo starting with Rituxan however pt blood culture came back positive 1/2 bottles coag neg staph. Concern for sepsis contributing to thrombocytopenia. Pt remain afebrile, chronically ill appearing c/o soreness from biopsy site. No results yet from bone marrow but suspect involvement with leukemia. Unlikely microangiopathic hemolytic process renal function normal and pt has an aggressive NHL associated with elevated LDH on last admission. At patient's request called his POA and discussed treatment regarding lymphoma, follow with Dr. Booth in AM. Grecia Matthew Nov 17, 2016 12:08 Carmen Newsome MD Nov 17, 2016 22:09
[2016-11-17] MEDS: VANCOMYCIN INJ 700 MG in SODIUM CHLOR 0.9% 250 ML INJ 250 ML IV SCH (13:50)
--- NOTE | 2016-11-17 15:32 | EC ---
Study Study Date:11/17/2016 STUDY CONCLUSIONS SUMMARY - Left ventricle: The cavity size was normal. Wall thickness was normal. Systolic function was normal. The estimated ejection fraction was in the range of 55% to 60%. Wall motion was normal; there were no regional wall motion abnormalities. - Pulmonary arteries: PA peak pressure: 39mm Hg (S). If LV function is below 40, please consider prescribing an ACEI or ARB or document rationale for non-use. PROCEDURE DATA STUDY STATUS: Elective. Procedure: Transthoracic echocardiography. Image quality was good. Scanning was performed from the parasternal, apical, and subcostal acoustic windows. Study completion: The patient tolerated the procedure well. Transthoracic echocardiography. M-mode, complete 2D, complete spectral Doppler, and color Doppler. Patient status: Inpatient. CARDIAC ANATOMY LEFT VENTRICLE: The cavity size was normal. Wall thickness was normal. Systolic function was normal. The estimated ejection fraction was in the range of 55% to 60%. Wall motion was normal; there were no regional wall motion abnormalities. AORTIC VALVE: Trileaflet; normal thickness leaflets. Doppler: Transvalvular velocity was within the normal range. There was no stenosis. No regurgitation. AORTA: Aortic root: The aortic root was normal in size. MITRAL VALVE: Structurally normal valve. Doppler: Transvalvular velocity was within the normal range. There was no evidence for stenosis. Trace regurgitation. LEFT ATRIUM: The atrium was normal in size. RIGHT VENTRICLE: The cavity size was normal. Wall thickness was normal. PULMONIC VALVE: Doppler: Transvalvular velocity was within the normal range. There was no evidence for stenosis. No regurgitation. TRICUSPID VALVE: Structurally normal valve. Doppler: Transvalvular velocity was within the normal range. Trace regurgitation. PULMONARY ARTERY: The main pulmonary artery was normal-sized. Systolic pressure was within the normal range. RIGHT ATRIUM: The atrium was normal in size. PERICARDIUM: There was no pericardial effusion. SYSTEMIC VEINS: Inferior vena cava: The vessel was normal in size. BASIC MEASUREMENTS ADULT Normal Left ventricle LV internal dimension, ED, chordal level, *41.9 mm 43-52 PLAX LV internal dimension, ES, chordal level, 32.9 mm 23-38 PLAX Fractional shortening, chordal level, PLAX *21 % >29 LV posterior wall thickness, ED 9.1 mm IVS/LVPW ratio, ED 1.14 <1.3 Ventricular septum Septal thickness, ED 10.4 mm Aortic valve Leaflet separation 17 mm 15-26 Right ventricle RV internal dimension, ED, PLAX 22 mm 19-38 BASIC MEASUREMENTS ADULT Normal Aortic valve Leaflet separation 17 mm 15-26 Aorta Root diameter, ED *38 mm 20-37 Left atrium Anterior-posterior dimension, ES 30 mm 19-40 LA/aortic root ratio 0.79 DOPPLER MEASUREMENTS ADULT Normal Main pulmonary artery Pressure, S *39 mm Hg =30 Tricuspid valve Regurgitant peak velocity 271 cm/s Peak RV-RA gradient, S 29 mm Hg Systemic veins Estimated CVP 10 mm Hg Right ventricle RV pressure, S *39 mm Hg <30 LEGEND: Mean values are shown as u=mean value. Asterisk (*) thompson values outside specified normal range. Prepared and signed by Quentin Nunez [id number]
[2016-11-17 18:24] LABS: HEPARIN AB OD 0.061 O.D. (0.000-0.300); HEPARIN INDUCED PLATELET AB NEGATIVE (NEGATIVE)
--- NOTE | 2016-11-17 19:25 | PD.ID.CON ---
History of Present Illness Service ID Consult Requested By Dr Orr Reason for Consult bacteremia ? sepsis Primary Care Physician Mandeep Ragland MD Diagnoses: History of Present Illness 66 yo male with h/o diarrhea, inguina and cervical lymphadenopathy weighloss and scaly skin rash x 2 mos or so was diagnosed with anaplastic large cell lymphoma 2 wks ago Pt was not started on chemotherapy yet He presented with bruising nd was found to have profound trombocytopenia with plts count < 5 He also was found to have low grade coag negative bacteremia with only one bottle positive He does not have intravasc devices, h/o valve repalacements He has h/o L ARPIT but he denies any pain and./or swelling of L hip Review of Systems Except as stated in HPI: all other systems reviewed are Neg Past Family Social History Allergies: Uncoded Allergies: TYPHOID (Allergy, Severe, Anaphylaxis, 06/28/13) Past Medical History Lymphoma Hyperlipidemia Depression Past Surgical History ORIF left hip ORIF left arm Active Ordered Medications Medications where reviewed in EMR Antibiotics Include: vancomycin Family History Father had COPD. Mother had dementia. Social History Patient quit smoking cigarettes 40 years ago. Had smoked 2-3 cigars daily until a couple months ago. Reports history of heavy daily alcohol use, but no longer drinks alcohol. Denies illicit drug use. Physical Exam Vital Signs Vital Signs Date Time Temp Pulse Resp B/P Pulse Ox O2 Delivery O2 Flow Rate FiO2 11/17/16 15:00 98.5 85 16 112/66 99 11/17/16 13:14 97.7 101 16 101/60 100 11/17/16 12:42 97.0 92 16 105/61 97 11/17/16 12:00 98.4 95 16 125/63 93 11/17/16 08:00 96.1 88 16 115/70 96 11/17/16 06:52 97.1 88 16 104/61 98 11/17/16 06:41 96.2 90 19 113/72 96 11/17/16 04:00 96.5 86 16 112/69 96 11/17/16 03:00 96.1 82 16 107/67 95 11/17/16 02:00 96.3 88 16 112/68 95 11/17/16 01:00 96.6 86 16 111/72 96 11/17/16 00:00 96.6 90 16 121/71 96 11/16/16 23:00 96.5 92 19 109/65 95 11/16/16 22:45 96.4 90 18 105/66 93 11/16/16 22:30 96.2 95 16 110/57 95 11/16/16 22:15 98.1 96 16 99/70 96 11/16/16 22:00 96.4 98 16 111/74 95 Physical Exam CONSTITUTIONAL/GENERAL: This is a thin cachectic patient, in no apparent distress. TUBES/LINES/DRAINS: SKIN: No jaundice, s. Extensive petechia and ecchymoses on upper and lower extremities, torso. Face with extensive yellow scaly rash No wounds seen anteriorly. Skin temperature appropriate. Not diaphoretic. HEAD: Atraumatic. Normocephalic. EYES: Pupils equal and round and reactive. Extraocular motions intact. No scleral icterus. No injection or drainage. Fundi not examined. ENT: Hearing grossly normal. Nose without bleeding or purulent drainage. oral mucosea moist POor dentition NECK: Trachea midline. Supple, nontender. No palpable thyroid enlargement or nodularity. CARDIOVASCULAR: Regular rate and rhythm without murmurs, gallops, or rubs. No JVD. Peripheral pulses symmetric. RESPIRATORY/CHEST: Symmetric, unlabored respirations. Clear to auscultation. Breath sounds equal bilaterally. No wheezes, rales, or rhonchi. GASTROINTESTINAL: Abdomen soft, non-tender, nondistended. No hepato-splenomegaly , or palpable masses. No guarding. Bowel sounds present. GENITOURINARY: Without palpable bladder distension. MUSCULOSKELETAL: Extremities without clubbing, cyanosis, or edema. No joint tenderness or effusion noted. No calf tenderness. No mottling or clubbing. LYMPHATICS: + palpable cervical and prominent b/l inguinal adenopathy, especially R groin NEUROLOGICAL: Awake and alert. Motor and sensory grossly within normal limits. Follows commands. Normal speech Moves all extremities. PSYCHIATRIC: No obvious anxiety/depression. no apparent hallucinations or other psychotic thought process. Laboratory Laboratory Tests Test 11/17/16 11/17/16 11/17/16 11/17/16 04:50 05:00 06:03 09:15 Blood Smear Pathologist Review Reticulocyte Count 0.9 Absolute Reticulocyte Count 28.8 Sodium Level 138 Potassium Level 3.4 Chloride Level 105 Carbon Dioxide Level 22.5 Anion Gap 11 Blood Urea Nitrogen 12 Creatinine 0.45 Estimat Glomerular Filtration 189 Rate Random Glucose 87 Calcium Level 6.3 Protein Corrected Calcium 7.4 Total Bilirubin 0.9 Aspartate Amino Transf 66 (AST/SGOT) Alanine Aminotransferase 53 (ALT/SGPT) Alkaline Phosphatase 109 Lactate Dehydrogenase 1162 Total Protein 4.9 Albumin 1.5 Immunoglobulin G Total 1630 Immunoglobulin A 320 Immunoglobulin M 69 White Blood Count 1.9 Red Blood Count 3.17 Hemoglobin 9.1 Hematocrit 26.9 Mean Corpuscular Volume 84.8 Mean Corpuscular Hemoglobin 28.7 Mean Corpuscular Hemoglobin 33.9 Concent Red Cell Distribution Width 14.0 Platelet Count 2 Mean Platelet Volume 12.8 Neutrophils (%) (Auto) 87.3 Lymphocytes (%) (Auto) 9.8 Monocytes (%) (Auto) 2.7 Eosinophils (%) (Auto) 0.1 Basophils (%) (Auto) 0.1 Neutrophils # (Auto) 1.7 Lymphocytes # (Auto) 0.2 Monocytes # (Auto) 0.1 Eosinophils # (Auto) 0.0 Basophils # (Auto) 0.0 CBC Comment AUTO DIFF Differential Total Cells 100 Counted Neutrophils % (Manual) 86 Band Neutrophils % 11 Lymphocytes % 2 Monocytes % 1 Neutrophils # (Manual) 1.8 Differential Comment FINAL DIFF MANUAL Platelet Estimate RARE Platelet Morphology Comment NORMAL Ovalocytes 1+ Keratocytes OCC Hepatitis A IgM Antibody NEGATIVE Hepatitis B Surface Antigen NEGATIVE Hepatitis B Core IgM Antibody NEGATIVE Hepatitis C Antibody NEGATIVE Blood Type A NEGATIVE Direct Antiglobulin Test WEAKLY ([place]) POSITIVE Blood Bank Comment Date/Time Procedure Status Source Growth 11/16/16 04:55 Aerobic Blood Culture - Preliminary Resulted Blood Peripheral Staph Sp Coagulase Negative 11/16/16 04:55 Anaerobic Blood Culture - Preliminary Resulted Blood Peripheral NO GROWTH IN 1 DAY Result Diagram: 11/17/16 0500 11/17/16 0450 Imaging Last Impressions Chest X-Ray 11/16/16 0000 Signed Impressions: Service Date/Time: Wednesday, November 16, 2016 04:39 - CONCLUSION: 1. Enlargement of the left hilum and questionable nodule in the right upper lung. These findings should be further evaluated with a CT examination of the chest ideally with contrast at some point. 2. Hyperinflated lungs likely related to COPD. Zeb Grier MD Chest CT 11/16/16 0000 Signed Impressions: Service Date/Time: Wednesday, November 16, 2016 09:39 - CONCLUSION: Overall worsening axillary, hilar and mediastinal adenopathy and airspace consolidative processes. Given the patient's prior history of lymphoma this is most consistent with recurrent versus worsening lymphoma. Marce Rajput MD Assessment and Plan Assessment and Plan Newly diagnosed lymphoma Severe thrombocytopenia Low grade bacteremia, coag neg staph ? significance - no predisposing conditions for that tyoe of bactermeia - dc vancpmycin if other bottles remain negative at 3-5 days fu blood clx untill final Daysi Saleh MD Nov 17, 2016 19:25
[2016-11-18] VITALS (19 sets, daily range): BP systolic 97–133; BP diastolic 54–82; PULSE 76–100; RESP 16–20; TEMP 96.4–97.9; O2SAT 92–100
[2016-11-18] MEDS: VANCOMYCIN INJ 700 MG in SODIUM CHLOR 0.9% 250 ML INJ 250 ML IV SCH (01:02)
[2016-11-18] MEDS: MORPHINE SULFATE 4 MG/ML INJ IV PRN ×5 (06:08→21:50)
[2016-11-18 06:58] LABS: HEMATOCRIT 21.2 % (39.0-51.0); LYMPH % 8.7 % (9.0-44.0); LYMPHOCYTE # 0.2 TH/MM3 (1.0-4.8); MEAN CELL VOLUME 82.1 FL (80.0-100.0); MEAN CORPUSCULAR HEMOGLOBIN 29.4 PG (27.0-34.0); MEAN CORPUSCULAR HGB CONC 35.9 % (32.0-36.0); MONO % 3.6 % (0.0-8.0); NEUT % 87.7 % (16.0-70.0); RED BLOOD COUNT 2.58 MIL/MM3 (4.50-5.90); RED CELL DISTRIBUTION WIDTH 13.8 % (11.6-17.2); WHITE BLOOD COUNT 2.2 TH/MM3 (4.0-11.0)
[2016-11-18 07:01] LABS: HEMO FLAGS AUTO DIFF
[2016-11-18 07:02] LABS: PLATELET COUNT 10 TH/MM3 (150-450)
[2016-11-18 07:23] LABS: BICARBONATE 26.5 MEQ/L (21.0-32.0); CALCIUM-PROTEIN CORRECTED 7.7 MG/DL (8.5-10.1); MAGNESIUM 1.9 MG/DL (1.5-2.5); POTASSIUM 3.6 MEQ/L (3.5-5.1); TOTAL BILIRUBIN ADULT 0.8 MG/DL (0.2-1.0)
[2016-11-18] MEDS ORDERED: diphenhydrAMINE HCL 25 MG CAP PO PRN (07:45)
[2016-11-18] MEDS ORDERED: ACETAMINOPHEN 325 MG TAB PO PRN (07:45)
[2016-11-18] MEDS ORDERED: SODIUM CHLOR 0.9% 250 ML INJ 250 ML IV ONE ×2 (07:45→09:00)
--- NOTE | 2016-11-18 08:06 | HHI.PR ---
Subjective Remarks Follow up anemia, thrombocytopenia, lymphoma. Patient states that he feels much better today. Denies pain currently. No nausea/vomiting. Objective Vitals Vital Signs Date Time Temp Pulse Resp B/P Pulse Ox O2 Delivery O2 Flow Rate FiO2 11/18/16 06:26 16 11/18/16 04:59 18 11/18/16 04:00 96.9 81 17 104/61 97 11/18/16 00:00 97.0 86 17 97/54 94 11/17/16 20:16 87 11/17/16 20:00 97.0 94 18 114/66 98 11/17/16 15:00 98.5 85 16 112/66 99 11/17/16 13:14 97.7 101 16 101/60 100 11/17/16 12:42 97.0 92 16 105/61 97 11/17/16 12:00 98.4 95 16 125/63 93 I/O 11/17/16 11/17/16 11/17/16 11/18/16 11/18/16 11/18/16 07:00 15:00 23:00 07:00 15:00 23:00 Intake Total 980 ml 1610 ml Output Total 600 ml 325 ml 750 ml Balance 380 ml 1285 ml -750 ml Intake Oral 480 ml 960 ml IV Total 200 ml 400 ml Packed Cells 250 ml Other 300 ml Output Urine Total 600 ml 325 ml 750 ml # Voids 1 4 1 2 # Bowel Movements 0 0 Result Diagram: 11/18/16 0529 11/18/16 0529 Imaging Last Impressions Chest X-Ray 11/16/16 0000 Signed Impressions: Service Date/Time: Wednesday, November 16, 2016 04:39 - CONCLUSION: 1. Enlargement of the left hilum and questionable nodule in the right upper lung. These findings should be further evaluated with a CT examination of the chest ideally with contrast at some point. 2. Hyperinflated lungs likely related to COPD. Zeb Grier MD Chest CT 11/16/16 0000 Signed Impressions: Service Date/Time: Wednesday, November 16, 2016 09:39 - CONCLUSION: Overall worsening axillary, hilar and mediastinal adenopathy and airspace consolidative processes. Given the patient's prior history of lymphoma this is most consistent with recurrent versus worsening lymphoma. Marce Rajput MD Objective Remarks General: Thin male in no acute distress. Heart: Regular rate and rhythm. No murmur. Lungs: Clear to auscultation bilaterally. No wheezes, rales, or rhonchi. Breathing is nonlabored. Abdomen: Soft, nontender, nondistended. Extremities: No lower extremity edema. Psych: Alert and oriented. Skin: Dry skin diffusely. Procedures 11/16/16 bone marrow biopsy Urinary Catheter: No Vascular Central Line Catheter: No A/P Problem List: (1) Thrombocytopenia ICD Code: D69.6 Status: Acute (2) Lymphoma ICD Code: C85.90 Status: Acute (3) Dehydration ICD Code: E86.0 Status: Acute (4) Lactic acidosis ICD Code: E87.2 Status: Acute (5) Depression ICD Code: F32.9 Status: Acute (6) SIRS (systemic inflammatory response syndrome) ICD Code: R65.10 Status: Acute (7) Hypocalcemia ICD Code: E83.51 Status: Acute Assessment and Plan 1. Severe thrombocytopenia: Possibly ITP. Management per hematology/oncology. Platelet transfusion ordered. 2. Lymphoma: Management per oncology. 3. Dehydration: Resolved. 4. Lactic acidosis: Resolved. 5. Depression: Continue Effexor, trazodone. 6. Abnormal chest x-ray: CT of the chest shows likely worsening of lymphoma. 7. Generalized weakness: PT eval requested. 8. DVT prophylaxis: ANGIE Khan. Avoid chemical prophylaxis secondary to severe thrombocytopenia. 9. Hypocalcemia: Supplement calcium. Monitor on telemetry. 10. Anemia: Transfusion of 1 unit PRBCs ordered. 11. CODE STATUS: Full code. The patient states that he wants to discuss this with his brother, who is his DURABLE POWER OF STRATEGIC PARTNERSHIP SPECIALIST, before changing his CODE STATUS. John Wallace MD Nov 18, 2016 08:06
[2016-11-18 08:42] LABS: BANDS 14 % (0-6); METAMYELOCYTES 1 % (0-1); NEUTROPHIL # MANUAL DIFF 2.2 TH/MM3 (1.8-7.7); PLATELET ESTIMATE SMEAR RARE (NORMAL); PLATELET MORPHOLOGY NORMAL (NORMAL); POLYS (SEG NEUTROPHILS) 83 % (16-70); SCAN/DIFF FINAL DIFF MANUAL; WBC DIFF SAMPLE 100
[2016-11-18 08:43] LABS: OVALOCYTES 1+ (NORMAL)
[2016-11-18] MEDS: SODIUM CHLORIDE 0.9% FLUSH 10 ML FLUSH IV FLUSH SCH (09:00)
[2016-11-18] MEDS: predniSONE 20 MG TAB PO SCH ×2 (09:16→21:50)
[2016-11-18] MEDS: ALLOPURINOL 300 MG TAB PO SCH (10:28)
--- NOTE | 2016-11-18 11:56 | PD.ONC.PN ---
Subjective Subjective Remarks Afebrile overnight. Patient without complaints today. Denies bleeding. ready to start chemotherapy. Objective Data Date Time Temp Pulse Resp B/P Pulse Ox O2 Delivery O2 Flow Rate FiO2 11/18/16 11:35 97.4 99 18 133/74 99 11/18/16 11:18 97.6 90 20 120/69 99 11/18/16 11:05 97.7 89 18 116/68 99 11/18/16 10:30 97.6 93 20 125/64 99 11/18/16 10:10 97.7 96 20 117/82 100 11/18/16 08:02 97.9 76 18 111/79 98 11/18/16 06:26 16 11/18/16 04:59 18 11/18/16 04:00 96.9 81 17 104/61 97 11/18/16 00:00 97.0 86 17 97/54 94 11/17/16 20:16 87 11/17/16 20:00 97.0 94 18 114/66 98 11/17/16 15:00 98.5 85 16 112/66 99 11/17/16 13:14 97.7 101 16 101/60 100 11/17/16 12:42 97.0 92 16 105/61 97 11/17/16 12:00 98.4 95 16 125/63 93 Result Diagram: 11/18/16 0529 11/18/16 0529 Laboratory Results Laboratory Tests Test 11/18/16 11/18/16 11/18/16 05:29 08:05 08:53 White Blood Count 2.2 TH/MM3 Red Blood Count 2.58 MIL/MM3 Hemoglobin 7.6 GM/DL Hematocrit 21.2 % Mean Corpuscular Volume 82.1 FL Mean Corpuscular Hemoglobin 29.4 PG Mean Corpuscular Hemoglobin 35.9 % Concent Red Cell Distribution Width 13.8 % Platelet Count 10 TH/MM3 Mean Platelet Volume 9.5 FL Neutrophils (%) (Auto) 87.7 % Lymphocytes (%) (Auto) 8.7 % Monocytes (%) (Auto) 3.6 % Eosinophils (%) (Auto) 0.0 % Basophils (%) (Auto) 0.0 % Neutrophils # (Auto) 2.0 TH/MM3 Lymphocytes # (Auto) 0.2 TH/MM3 Monocytes # (Auto) 0.1 TH/MM3 Eosinophils # (Auto) 0.0 TH/MM3 Basophils # (Auto) 0.0 TH/MM3 CBC Comment AUTO DIFF Differential Total Cells 100 Counted Neutrophils % (Manual) 83 % Band Neutrophils % 14 % Lymphocytes % 1 % Monocytes % 1 % Neutrophils # (Manual) 2.2 TH/MM3 Metamyelocytes 1 % Differential Comment FINAL DIFF MANUAL Platelet Estimate RARE Platelet Morphology Comment NORMAL Ovalocytes 1+ Sodium Level 138 MEQ/L Potassium Level 3.6 MEQ/L Chloride Level 105 MEQ/L Carbon Dioxide Level 26.5 MEQ/L Anion Gap 7 MEQ/L Blood Urea Nitrogen 8 MG/DL Creatinine 0.43 MG/DL Estimat Glomerular Filtration 199 ML/MIN Rate Random Glucose 110 MG/DL Calcium Level 6.5 MG/DL Protein Corrected Calcium 7.7 MG/DL Magnesium Level 1.9 MG/DL Total Bilirubin 0.8 MG/DL Aspartate Amino Transf 50 U/L (AST/SGOT) Alanine Aminotransferase 48 U/L (ALT/SGPT) Alkaline Phosphatase 130 U/L Total Protein 4.7 GM/DL Albumin 1.6 GM/DL Blood Type A NEGATIVE Crossmatch Leukocyte-Reduced Red Blood Cells Blood Bank Comment Culture Results Microbiology Date/Time Procedure Status Source Growth 11/16/16 04:50 Aerobic Blood Culture - Preliminary Resulted Blood Peripheral NO GROWTH IN 2 DAYS 11/16/16 04:50 Anaerobic Blood Culture - Preliminary Resulted Blood Peripheral NO GROWTH IN 2 DAYS 11/16/16 04:55 Aerobic Blood Culture - Final Resulted Blood Peripheral Staph Sp Coagulase Negative 11/16/16 04:55 Anaerobic Blood Culture - Preliminary Resulted Blood Peripheral NO GROWTH IN 2 DAYS Administered Medications Medications (Trade) Dose Ordered Sig/Tricia Route PRN Reason Start Time Stop Time Status Last Admin Dose Admin Sodium Chloride (NS Flush) 2 ml BID IV FLUSH 11/16/16 09:00 11/17/16 08:33 Acetaminophen/ Hydrocodone Bitart ([place] 5-325 Mg) 1 tab Q4H PRN PO PAIN SCALE 3 TO 5 11/16/16 07:00 11/18/16 03:43 Morphine Sulfate (Morphine Inj) 2 mg Q3H PRN IV Pain 6-10 11/16/16 07:00 11/18/16 10:29 Prednisone 20 mg 20 mg BID PO 11/16/16 21:00 11/18/16 09:16 Potassium Chloride/Sodium Chloride (NS + KCl 20 Meq Inj) 1,000 ml @ 84 mls/hr [id number] IV 11/17/16 09:00 11/17/16 08:32 Allopurinol (Zyloprim) 300 mg DAILY PO 11/18/16 09:00 11/18/16 10:28 Objective Remarks GENERAL: Middle aged male, sitting up in bed in nad. SKIN: Warm and dry. HEAD: Normocephalic. EYES: No injection or drainage. NECK: Supple, trachea midline. CARDIOVASCULAR: Regular rate and rhythm RESPIRATORY: Breath sounds equal bilaterally. No accessory muscle use. GASTROINTESTINAL: Abdomen soft, non-tender, nondistended. EXTREMITIES: No cyanosis NEUROLOGICAL: awake and alert, normal speech. moving all extremities. Assessment/Plan Problem List: (1) Malignant lymphoma, high grade Status: Acute Plan: --s/p bone marrow biopsy, awaiting pathology --will need to start R-CHOP once sepsis resolves (2) Sepsis Status: Acute Plan: --ONE blood culture + GPR -on Vancomycin, --ID following --patient afebrile, without symptoms-->likely a contaminant Assessment 66y/o with malignant high grade lymphoma admitted with weakness. h/o Thrombocytopenia. Depression Panic attack. Hyperlipidemia. Plan 1. give 3 units platelets today 2. R-CHOP chemo teaching 3. Rituxan today after PICC line placement. Attending Statement The exam, history, and the medical decision-making described in the above note were completed with the assistance of the mid-level provider. I reviewed and agree with the findings presented. I attest that I had a [id number] encounter with the patient on the same day, and personally performed and documented my assessment and findings in the medical record. Platelet trended up slightly. Will transfuse before PICC line placement. I think the one positive blood culture is due to contaminant. Continue abx per ID. Extensive discussion with pt regarding his diagnosis, prognosis and treatment option. Discussed treatment with chemotherapy and the potential side effect including . Given his thrombocytopenia, he may have increased risk of bleeding with chemotherapy. He understand the risks and wants to be aggressive. Will give him Rituxan today and consider CHOP in 1-2 days. Start allopurinol. Grecia Matthew Nov 18, 2016 11:56 Gregg Booth MD Nov 18, 2016 17:31
[2016-11-18] MEDS ORDERED: SODIUM CHLORID 0.9% IV SCH (14:00)
[2016-11-18] MEDS ORDERED: RITUXIMAB IV SCH (14:00)
--- NOTE | 2016-11-18 14:38 | PD.RAD ---
Radiology Post PICC Prog Note Pre Procedure Diagnosis: (1) Malignant lymphoma, high grade Post Procedure Diagnosis: (1) Malignant lymphoma, high grade Procedure: Right PICC line placement Procedure Date: Nov 18, 2016 Supervising Radiologist Pan Zimmerman Proceduralist/Assist: Delores Palencia, RT(R)(), Jeannette Engle, RT(R)() Device Side: Right Latvian: 4 single lumen cm: 38 Catheter: Power PICC Plan of Activity Patient to Unit: Nursing Unit Patient Condition: Good PICC line can be used immediately Pan Zimmerman MD Nov 18, 2016 14:38
[2016-11-18] MEDS ORDERED: SODIUM CHLORIDE 0.9% FLUSH 10 ML FLUSH IVF PRN ×2 (14:45)
[2016-11-18] MEDS: VANCOMYCIN 1,000 MG/NS 250 ML IV SCH ×2 (14:51)
[2016-11-18] MEDS: diphenhydrAMINE HCL 25 MG CAP PO PRN ×2 (15:11→22:38)
[2016-11-18] MEDS: ACETAMINOPHEN 325 MG TAB PO PRN (22:38)
[2016-11-19] VITALS (9 sets, daily range): BP systolic 115–144; BP diastolic 65–83; PULSE 57–95; RESP 16–20; TEMP 96.3–98; O2SAT 94–100
[2016-11-19] MEDS: VANCOMYCIN 1,000 MG/NS 250 ML IV SCH ×4 (02:14→13:03)
[2016-11-19] MEDS: NS + KCL 20 MEQ INJ 1,000 ML IV SCH ×2 (02:25→19:45)
[2016-11-19 06:59] LABS: AUTOMATED NEUTROPHIL # 2.2 TH/MM3 (1.8-7.7); BASOPHIL % 0.1 % (0.0-2.0); EOSINOPHIL % 0.1 % (0.0-4.0); HEMATOCRIT 22.9 % (39.0-51.0); LYMPH % 5.7 % (9.0-44.0); LYMPHOCYTE # 0.1 TH/MM3 (1.0-4.8); MEAN CELL VOLUME 85.6 FL (80.0-100.0); MEAN CORPUSCULAR HEMOGLOBIN 29.9 PG (27.0-34.0); MEAN CORPUSCULAR HGB CONC 34.9 % (32.0-36.0); MONO % 3.3 % (0.0-8.0); NEUT % 90.8 % (16.0-70.0); RED BLOOD COUNT 2.67 MIL/MM3 (4.50-5.90); RED CELL DISTRIBUTION WIDTH 13.9 % (11.6-17.2); WHITE BLOOD COUNT 2.4 TH/MM3 (4.0-11.0)
[2016-11-19 07:34] LABS: BICARBONATE 28.4 MEQ/L (21.0-32.0); CALCIUM-PROTEIN CORRECTED 7.9 MG/DL (8.5-10.1); POTASSIUM 3.4 MEQ/L (3.5-5.1); TOTAL BILIRUBIN ADULT 1.6 MG/DL (0.2-1.0); URIC ACID 1.1 MG/DL (2.6-7.2)
[2016-11-19 07:37] LABS: HEMO FLAGS AUTO DIFF
[2016-11-19 07:38] LABS: PLATELET COUNT 9 TH/MM3 (150-450)
[2016-11-19] MEDS ORDERED: diphenhydrAMINE HCL 25 MG CAP PO PRN (07:45)
[2016-11-19] MEDS ORDERED: SODIUM CHLOR 0.9% 250 ML INJ 250 ML IV ONE (07:45)
[2016-11-19] MEDS ORDERED: ACETAMINOPHEN 325 MG TAB PO PRN (07:45)
--- NOTE | 2016-11-19 07:51 | HHI.PR ---
Subjective Remarks Follow up anemia, thrombocytopenia, lymphoma, hypokalemia. The patient states that he is feeling better today. No nausea or vomiting. Denies pain currently. Objective Vitals Vital Signs Date Time Temp Pulse Resp B/P Pulse Ox O2 Delivery O2 Flow Rate FiO2 11/19/16 05:25 96.8 61 16 138/78 96 11/19/16 01:45 97.0 60 16 128/77 96 11/18/16 23:00 96.7 91 16 115/69 94 11/18/16 20:10 85 11/18/16 20:00 96.9 90 16 130/73 94 11/18/16 18:34 92 11/18/16 17:40 97.6 100 20 119/70 95 11/18/16 17:18 96.4 94 20 118/64 95 11/18/16 16:20 97.1 99 20 133/78 99 11/18/16 16:16 97.8 97 20 133/80 99 11/18/16 16:03 97.8 95 18 126/80 96 11/18/16 16:00 97.2 90 20 131/67 97 11/18/16 12:00 97.1 91 20 108/64 92 11/18/16 11:35 97.4 99 18 133/74 99 11/18/16 11:18 97.6 90 20 120/69 99 11/18/16 11:05 97.7 89 18 116/68 99 11/18/16 10:30 97.6 93 20 125/64 99 11/18/16 10:10 97.7 96 20 117/82 100 11/18/16 08:02 97.9 76 18 111/79 98 I/O 11/18/16 11/18/16 11/18/16 11/19/16 11/19/16 11/19/16 07:00 15:00 23:00 07:00 15:00 23:00 Intake Total 1250 ml 250 ml Output Total 750 ml 950 ml 650 ml Balance -750 ml 300 ml -400 ml Intake Oral 480 ml 250 ml IV Total 770 ml Output Urine Total 750 ml 950 ml 650 ml # Voids 2 # Bowel Movements 0 0 Result Diagram: 11/19/16 0500 11/19/16 0500 Imaging Last Impressions Chest X-Ray 11/16/16 0000 Signed Impressions: Service Date/Time: Wednesday, November 16, 2016 04:39 - CONCLUSION: 1. Enlargement of the left hilum and questionable nodule in the right upper lung. These findings should be further evaluated with a CT examination of the chest ideally with contrast at some point. 2. Hyperinflated lungs likely related to COPD. Zeb Grier MD Chest CT 11/16/16 0000 Signed Impressions: Service Date/Time: Wednesday, November 16, 2016 09:39 - CONCLUSION: Overall worsening axillary, hilar and mediastinal adenopathy and airspace consolidative processes. Given the patient's prior history of lymphoma this is most consistent with recurrent versus worsening lymphoma. Marce Rajput MD Objective Remarks General: Thin male in no acute distress. Heart: Regular rate and rhythm. No murmur. Lungs: Clear to auscultation bilaterally. No wheezes, rales, or rhonchi. Breathing is nonlabored. Abdomen: Soft, nontender, nondistended. Extremities: No lower extremity edema. Psych: Alert and oriented. Skin: Dry skin diffusely. Multiple petechiae, ecchymosis on extremities. Procedures 11/16/16 bone marrow biopsy Urinary Catheter: No Vascular Central Line Catheter: No A/P Problem List: (1) Thrombocytopenia ICD Code: D69.6 Status: Acute (2) Lymphoma ICD Code: C85.90 Status: Acute (3) Dehydration ICD Code: E86.0 Status: Acute (4) Lactic acidosis ICD Code: E87.2 Status: Acute (5) Depression ICD Code: F32.9 Status: Acute (6) SIRS (systemic inflammatory response syndrome) ICD Code: R65.10 Status: Acute (7) Hypocalcemia ICD Code: E83.51 Status: Acute (8) Hypokalemia ICD Code: E87.6 Status: Acute Assessment and Plan 1. Severe thrombocytopenia: Possibly ITP. Management per hematology/oncology. Platelet transfusion ordered. 2. Lymphoma: Management per oncology. 3. Dehydration: Resolved. 4. Lactic acidosis: Resolved. 5. Depression: Continue Effexor, trazodone. 6. Abnormal chest x-ray: CT of the chest shows likely worsening of lymphoma. 7. Generalized weakness: PT eval requested. 8. DVT prophylaxis: SCDs, ANGIE hose. Avoid chemical prophylaxis secondary to severe thrombocytopenia. 9. Hypocalcemia: Supplement calcium. Monitor on telemetry. 10. Anemia: H&H slightly improved following transfusion. 11. Hypokalemia: Supplement potassium. 12. CODE STATUS: Full code. The patient states that he wants to discuss this with his brother, who is his DURABLE POWER OF MANAGER DOCUMENT, before changing his CODE STATUS. John Wallace MD Nov 19, 2016 07:51
[2016-11-19] MEDS ORDERED: POTASSIUM CHLORIDE 20 MEQ CONTROLLED RELEASE TAB PO ONE (08:00)
[2016-11-19] MEDS: SODIUM CHLORIDE 0.9% FLUSH 10 ML FLUSH IVF SCH (09:00)
[2016-11-19 09:28] LABS: BANDS 24 % (0-6); NEUTROPHIL # MANUAL DIFF 2.4 TH/MM3 (1.8-7.7); POLYS (SEG NEUTROPHILS) 74 % (16-70); WBC DIFF SAMPLE 100
[2016-11-19 09:29] LABS: OVALOCYTES 1+ (NORMAL); PLATELET ESTIMATE SMEAR RARE (NORMAL); PLATELET MORPHOLOGY NORMAL (NORMAL); SCAN/DIFF FINAL DIFF MANUAL
[2016-11-19] MEDS: diphenhydrAMINE HCL 25 MG CAP PO PRN (09:29)
[2016-11-19] MEDS: ALLOPURINOL 300 MG TAB PO SCH (09:29)
[2016-11-19] MEDS: predniSONE 20 MG TAB PO SCH ×2 (09:29→20:37)
[2016-11-19] MEDS: ACETAMINOPHEN 325 MG TAB PO PRN (09:35)
--- NOTE | 2016-11-19 11:18 | PD.ONC.PN ---
Subjective Subjective Remarks Afebrile overnight. Pt resting in bed in no distress. He states he slept well. H3e is looking forward to starting chemotherapy. Objective Data Date Time Temp Pulse Resp B/P Pulse Ox O2 Delivery O2 Flow Rate FiO2 11/19/16 10:14 96.3 65 20 128/67 99 11/19/16 05:25 96.8 61 16 138/78 96 11/19/16 01:45 97.0 60 16 128/77 96 11/18/16 23:00 96.7 91 16 115/69 94 11/18/16 20:10 85 11/18/16 20:00 96.9 90 16 130/73 94 11/18/16 18:34 92 11/18/16 17:40 97.6 100 20 119/70 95 11/18/16 17:18 96.4 94 20 118/64 95 11/18/16 16:20 97.1 99 20 133/78 99 11/18/16 16:16 97.8 97 20 133/80 99 11/18/16 16:03 97.8 95 18 126/80 96 11/18/16 16:00 97.2 90 20 131/67 97 11/18/16 12:00 97.1 91 20 108/64 92 11/18/16 11:35 97.4 99 18 133/74 99 11/18/16 11:18 97.6 90 20 120/69 99 Result Diagram: 11/19/16 0500 11/19/16 0500 Laboratory Results Laboratory Tests Test 11/18/16 11/19/16 11/19/16 12:13 05:00 07:40 Platelet Count 66 TH/MM3 9 TH/MM3 White Blood Count 2.4 TH/MM3 Red Blood Count 2.67 MIL/MM3 Hemoglobin 8.0 GM/DL Hematocrit 22.9 % Mean Corpuscular Volume 85.6 FL Mean Corpuscular Hemoglobin 29.9 PG Mean Corpuscular Hemoglobin 34.9 % Concent Red Cell Distribution Width 13.9 % Mean Platelet Volume 9.7 FL Neutrophils (%) (Auto) 90.8 % Lymphocytes (%) (Auto) 5.7 % Monocytes (%) (Auto) 3.3 % Eosinophils (%) (Auto) 0.1 % Basophils (%) (Auto) 0.1 % Neutrophils # (Auto) 2.2 TH/MM3 Lymphocytes # (Auto) 0.1 TH/MM3 Monocytes # (Auto) 0.1 TH/MM3 Eosinophils # (Auto) 0.0 TH/MM3 Basophils # (Auto) 0.0 TH/MM3 CBC Comment AUTO DIFF Differential Total Cells 100 Counted Neutrophils % (Manual) 74 % Band Neutrophils % 24 % Lymphocytes % 1 % Monocytes % 1 % Neutrophils # (Manual) 2.4 TH/MM3 Differential Comment FINAL DIFF MANUAL Platelet Estimate RARE Platelet Morphology Comment NORMAL Ovalocytes 1+ Sodium Level 143 MEQ/L Potassium Level 3.4 MEQ/L Chloride Level 108 MEQ/L Carbon Dioxide Level 28.4 MEQ/L Anion Gap 7 MEQ/L Blood Urea Nitrogen 7 MG/DL Creatinine 0.36 MG/DL Estimat Glomerular Filtration 245 ML/MIN Rate Random Glucose 114 MG/DL Uric Acid 1.1 MG/DL Calcium Level 6.8 MG/DL Protein Corrected Calcium 7.9 MG/DL Total Bilirubin 1.6 MG/DL Aspartate Amino Transf 60 U/L (AST/SGOT) Alanine Aminotransferase 55 U/L (ALT/SGPT) Alkaline Phosphatase 145 U/L Lactate Dehydrogenase 953 U/L Total Protein 5.0 GM/DL Albumin 1.9 GM/DL Blood Bank Comment Administered Medications Medications (Trade) Dose Ordered Sig/Tricia Route PRN Reason Start Time Stop Time Status Last Admin Dose Admin Acetaminophen (Tylenol) 650 mg Q6H PRN PO FEVER/PAIN SCALE 1 TO 2 11/16/16 07:00 11/18/16 14:55 Acetaminophen/ Hydrocodone Bitart ([place] 5-325 Mg) 1 tab Q4H PRN PO PAIN SCALE 3 TO 5 11/16/16 07:00 11/18/16 03:43 Morphine Sulfate (Morphine Inj) 2 mg Q3H PRN IV Pain 6-10 11/16/16 07:00 11/18/16 21:50 Prednisone 20 mg 20 mg BID PO 11/16/16 21:00 11/19/16 09:29 Potassium Chloride/Sodium Chloride (NS + KCl 20 Meq Inj) 1,000 ml @ 84 mls/hr [id number] IV 11/17/16 09:00 11/19/16 02:25 Allopurinol 300 mg 300 mg DAILY PO 11/18/16 09:00 11/19/16 09:29 Rituximab 577.5 mg/Sodium Chloride 557.5 ml @ 48 mls/hr Q7D IV 11/18/16 14:00 11/18/16 16:38 Vancomycin HCl/ Sodium Chloride (Vancomycin Inj/ NS 250 ml Inj) 250 ml @ 250 mls/hr Q12H IV 11/18/16 13:00 11/19/16 02:14 Heparin Sodium (Porcine) (Heparin Central Flush) DAILY IV FLUSH 11/19/16 09:00 11/19/16 09:31 Diphenhydramine HCl (Benadryl) 25 mg Q4H PRN PO PRIOR TO BLOOD PRODUCTS 11/18/16 15:15 11/19/16 09:29 Acetaminophen (Tylenol) 650 mg Q4H PRN PO PRIOR TO BLOOD PRODUCTS 11/18/16 15:15 11/19/16 09:35 Objective Remarks GENERAL: Middle aged male, sitting up in bed in nad. SKIN: Warm and dry. Severe xerosis. Purpura to BLE HEAD: Normocephalic. EYES: No injection or drainage. NECK: Supple, trachea midline. CARDIOVASCULAR: Regular rate and rhythm RESPIRATORY: Breath sounds equal bilaterally. No accessory muscle use. GASTROINTESTINAL: Abdomen soft, non-tender, nondistended. EXTREMITIES: No cyanosis NEUROLOGICAL: awake and alert, normal speech. moving all extremities. Assessment/Plan Problem List: (1) Malignant lymphoma, high grade Status: Acute Plan: --No lymphoma noted in BMB. --will need to start R-CHOP once sepsis resolves (2) Sepsis Status: Acute Plan: --ONE blood culture + GPR -on Vancomycin, --ID following --patient afebrile, without symptoms-->likely a contaminant Assessment 66y/o with malignant high grade lymphoma admitted with weakness. h/o Thrombocytopenia. Depression Panic attack. Hyperlipidemia. Plan 1. Platelets ordered today. 2. Rituxan given yesterday; CHOP chemo tomorrow. 3. Continue daily CBC, supportive care with transfusions. Attending Statement The exam, history, and the medical decision-making described in the above note were completed with the assistance of the mid-level provider. I reviewed and agree with the findings presented. I attest that I had a [id number] encounter with the patient on the same day, and personally performed and documented my assessment and findings in the medical record. Tolerated Rituxan well. Feeling better today. Platelet is 9K, will transfuse platelet. No bleeding noted. Remains afebrile, no clear evidence of infection. Plan to give him CHOP tomorrow. Arleth Castro Nov 19, 2016 11:18 Gregg Booth MD Nov 19, 2016 17:19
[2016-11-19] MEDS ORDERED: PHARMACY ORDERED LAB ONE (12:45)
[2016-11-19] MEDS: MORPHINE SULFATE 4 MG/ML INJ IV PRN ×3 (13:02→20:37)
--- NOTE | 2016-11-19 16:29 | HHI.IDPN ---
Subjective Subjective Remarks pt is doing OK He is afbrile His blood clx showed STAPH SP COAGULASE NEGATIVE X2 MORPHOLOGIES Antibiotics vancomycin Allergies: Uncoded Allergies: TYPHOID (Allergy, Severe, Anaphylaxis, 06/28/13) Objective . Vital Signs Date Time Temp Pulse Resp B/P Pulse Ox O2 Delivery O2 Flow Rate FiO2 11/19/16 11:00 97.5 66 20 130/78 99 11/19/16 10:30 97.6 65 20 144/83 100 11/19/16 10:14 96.3 65 20 128/67 99 11/19/16 08:00 76 11/19/16 05:25 96.8 61 16 138/78 96 11/19/16 01:45 97.0 60 16 128/77 96 11/18/16 23:00 96.7 91 16 115/69 94 11/18/16 20:10 85 11/18/16 20:00 96.9 90 16 130/73 94 11/18/16 18:34 92 11/18/16 17:40 97.6 100 20 119/70 95 11/18/16 17:18 96.4 94 20 118/64 95 11/18/16 11/18/16 11/19/16 15:00 23:00 07:00 Intake Total 1250 ml 250 ml Output Total 950 ml 650 ml Balance 300 ml -400 ml Intake Oral 480 ml 250 ml IV Total 770 ml Output Urine Total 950 ml 650 ml # Bowel Movements 0 0 . Laboratory Tests Test 11/18/16 11/18/16 11/19/16 05:29 12:13 05:00 White Blood Count 2.2 TH/MM3 2.4 TH/MM3 Red Blood Count 2.58 MIL/MM3 2.67 MIL/MM3 Hemoglobin 7.6 GM/DL 8.0 GM/DL Hematocrit 21.2 % 22.9 % Mean Corpuscular Volume 82.1 FL 85.6 FL Mean Corpuscular Hemoglobin 29.4 PG 29.9 PG Mean Corpuscular Hemoglobin 35.9 % 34.9 % Concent Red Cell Distribution Width 13.8 % 13.9 % Platelet Count 10 TH/MM3 66 TH/MM3 9 TH/MM3 Mean Platelet Volume 9.5 FL 9.7 FL Neutrophils (%) (Auto) 87.7 % 90.8 % Lymphocytes (%) (Auto) 8.7 % 5.7 % Monocytes (%) (Auto) 3.6 % 3.3 % Eosinophils (%) (Auto) 0.0 % 0.1 % Basophils (%) (Auto) 0.0 % 0.1 % Neutrophils # (Auto) 2.0 TH/MM3 2.2 TH/MM3 Lymphocytes # (Auto) 0.2 TH/MM3 0.1 TH/MM3 Monocytes # (Auto) 0.1 TH/MM3 0.1 TH/MM3 Eosinophils # (Auto) 0.0 TH/MM3 0.0 TH/MM3 Basophils # (Auto) 0.0 TH/MM3 0.0 TH/MM3 CBC Comment AUTO DIFF AUTO DIFF Differential Total Cells 100 100 Counted Neutrophils % (Manual) 83 % 74 % Band Neutrophils % 14 % 24 % Lymphocytes % 1 % 1 % Monocytes % 1 % 1 % Neutrophils # (Manual) 2.2 TH/MM3 2.4 TH/MM3 Metamyelocytes 1 % Differential Comment FINAL DIFF FINAL DIFF MANUAL MANUAL Platelet Estimate RARE RARE Platelet Morphology Comment NORMAL NORMAL Ovalocytes 1+ 1+ Laboratory Tests Test 11/18/16 11/19/16 05:29 05:00 Sodium Level 138 MEQ/L 143 MEQ/L Potassium Level 3.6 MEQ/L 3.4 MEQ/L Chloride Level 105 MEQ/L 108 MEQ/L Carbon Dioxide Level 26.5 MEQ/L 28.4 MEQ/L Anion Gap 7 MEQ/L 7 MEQ/L Blood Urea Nitrogen 8 MG/DL 7 MG/DL Creatinine 0.43 MG/DL 0.36 MG/DL Estimat Glomerular Filtration 199 ML/MIN 245 ML/MIN Rate Random Glucose 110 MG/DL 114 MG/DL Calcium Level 6.5 MG/DL 6.8 MG/DL Protein Corrected Calcium 7.7 MG/DL 7.9 MG/DL Magnesium Level 1.9 MG/DL Total Bilirubin 0.8 MG/DL 1.6 MG/DL Aspartate Amino Transf 50 U/L 60 U/L (AST/SGOT) Alanine Aminotransferase 48 U/L 55 U/L (ALT/SGPT) Alkaline Phosphatase 130 U/L 145 U/L Total Protein 4.7 GM/DL 5.0 GM/DL Albumin 1.6 GM/DL 1.9 GM/DL Uric Acid 1.1 MG/DL Lactate Dehydrogenase 953 U/L Imaging Last Impressions Chest X-Ray 11/16/16 0000 Signed Impressions: Service Date/Time: Wednesday, November 16, 2016 04:39 - CONCLUSION: 1. Enlargement of the left hilum and questionable nodule in the right upper lung. These findings should be further evaluated with a CT examination of the chest ideally with contrast at some point. 2. Hyperinflated lungs likely related to COPD. Zeb Grier MD Chest CT 11/16/16 0000 Signed Impressions: Service Date/Time: Wednesday, November 16, 2016 09:39 - CONCLUSION: Overall worsening axillary, hilar and mediastinal adenopathy and airspace consolidative processes. Given the patient's prior history of lymphoma this is most consistent with recurrent versus worsening lymphoma. Marce Rajput MD Physical Exam CONSTITUTIONAL/GENERAL: This is a thin cachectic patient, in no apparent distress. TUBES/LINES/DRAINS: SKIN: No jaundice, s. Extensive petechia and ecchymoses on upper and lower extremities, torso. Face with extensive yellow scaly rash No wounds seen anteriorly. Skin temperature appropriate. Not diaphoretic. CARDIOVASCULAR: Regular rate and rhythm without murmurs, gallops, or rubs. No JVD. Peripheral pulses symmetric. RESPIRATORY/CHEST: Symmetric, unlabored respirations. Clear to auscultation. Breath sounds equal bilaterally. No wheezes, rales, or rhonchi. GASTROINTESTINAL: Abdomen soft, non-tender, nondistended. No hepato-splenomegaly , or palpable masses. No guarding. Bowel sounds present. GENITOURINARY: Without palpable bladder distension. MUSCULOSKELETAL: Extremities without clubbing, cyanosis, or edema. NEUROLOGICAL: Awake and alert. Non focal Assessment & Plan Remarks Newly diagnosed lymphoma Severe thrombocytopenia Low grade bacteremia, coag neg staphx 2 morphologies, doubt clinical significance - no predisposing conditions for that tyoe of bactermeia - dc vancpmycin will s/o pleawse reconsult if any furhter questions Daysi Saleh MD Nov 19, 2016 16:29
[2016-11-19 17:06] LABS: ALBUMIN SPE 1.82 GM/DL (3.50-5.00); ALPHA 1 GLOBULIN 0.37 GM/DL (0.11-0.29); ALPHA 2 GLOBULIN 0.51 GM/DL (0.22-1.00); BETA GLOBULINS (SPE) 0.53 GM/DL (0.53-1.03)
[2016-11-20] VITALS (11 sets, daily range): BP systolic 105–152; BP diastolic 73–88; PULSE 77–132; RESP 16–32; TEMP 96.6–99.8; O2SAT 91–98
[2016-11-20] MEDS: MORPHINE SULFATE 4 MG/ML INJ IV PRN ×5 (01:15→18:30)
[2016-11-20] MEDS: NS + KCL 20 MEQ INJ 1,000 ML IV SCH (06:32)
[2016-11-20 07:06] LABS: AUTOMATED NEUTROPHIL # 2.7 TH/MM3 (1.8-7.7); BASOPHIL % 0.3 % (0.0-2.0); EOSINOPHIL % 0.1 % (0.0-4.0); HEMATOCRIT 23.1 % (39.0-51.0); LYMPH % 6.9 % (9.0-44.0); LYMPHOCYTE # 0.2 TH/MM3 (1.0-4.8); MEAN CELL VOLUME 83.9 FL (80.0-100.0); MEAN CORPUSCULAR HEMOGLOBIN 29.2 PG (27.0-34.0); MEAN CORPUSCULAR HGB CONC 34.9 % (32.0-36.0); MONO % 4.3 % (0.0-8.0); NEUT % 88.4 % (16.0-70.0); RED BLOOD COUNT 2.76 MIL/MM3 (4.50-5.90); RED CELL DISTRIBUTION WIDTH 13.9 % (11.6-17.2); WHITE BLOOD COUNT 3.1 TH/MM3 (4.0-11.0)
[2016-11-20 07:21] LABS: HEMO FLAGS AUTO DIFF
[2016-11-20 07:22] LABS: PLATELET COUNT 8 TH/MM3 (150-450)
--- NOTE | 2016-11-20 07:43 | PD.ONC.PN ---
Subjective Subjective Remarks Feeling better. No CP/SOB. No bleeding. Objective Data Date Time Temp Pulse Resp B/P Pulse Ox O2 Delivery O2 Flow Rate FiO2 11/20/16 07:23 16 11/20/16 04:00 97.1 81 17 124/76 93 11/20/16 00:00 96.6 77 18 130/80 95 11/19/16 20:00 98.0 67 18 135/76 94 11/19/16 16:00 97.2 92 18 115/65 95 11/19/16 12:00 97.8 95 20 130/73 95 11/19/16 11:00 97.5 66 20 130/78 99 11/19/16 10:30 97.6 65 20 144/83 100 11/19/16 10:14 96.3 65 20 128/67 99 11/19/16 08:00 76 11/19/16 08:00 97.2 57 18 129/67 96 Result Diagram: 11/19/16 0500 11/19/16 0500 Laboratory Results Laboratory Tests Test 11/19/16 12:45 Vancomycin Level Trough 11.0 MCG/ML Administered Medications Medications (Trade) Dose Ordered Sig/Tricia Route PRN Reason Start Time Stop Time Status Last Admin Dose Admin Acetaminophen (Tylenol) 650 mg Q6H PRN PO FEVER/PAIN SCALE 1 TO 2 11/16/16 07:00 11/18/16 14:55 Acetaminophen/ Hydrocodone Bitart ([place] 5-325 Mg) 1 tab Q4H PRN PO PAIN SCALE 3 TO 5 11/16/16 07:00 11/18/16 03:43 Morphine Sulfate (Morphine Inj) 2 mg Q3H PRN IV Pain 6-10 11/16/16 07:00 11/20/16 05:42 Prednisone 20 mg 20 mg BID PO 11/16/16 21:00 11/19/16 20:37 Potassium Chloride/Sodium Chloride (NS + KCl 20 Meq Inj) 1,000 ml @ 84 mls/hr [id number] IV 11/17/16 09:00 11/20/16 06:32 Allopurinol 300 mg 300 mg DAILY PO 11/18/16 09:00 11/19/16 09:29 Rituximab/Sodium Chloride (Rituxan Inj/NS 500 ml Inj) 557.5 ml @ 48 mls/hr Q7D IV 11/18/16 14:00 11/18/16 16:38 Heparin Sodium (Porcine) (Heparin Central Flush) DAILY IV FLUSH 11/19/16 09:00 11/19/16 09:31 Diphenhydramine HCl (Benadryl) 25 mg Q4H PRN PO PRIOR TO BLOOD PRODUCTS 11/18/16 15:15 11/19/16 09:29 Acetaminophen (Tylenol) 650 mg Q4H PRN PO PRIOR TO BLOOD PRODUCTS 11/18/16 15:15 11/19/16 09:35 Objective Remarks GENERAL: Thin SKIN: Dry scaly HEAD: Normocephalic. EYES: No scleral icterus. No injection or drainage. NECK: Supple, trachea midline. No JVD or lymphadenopathy. LYMPHATIC: No adenopathy. CARDIOVASCULAR: Regular rate and rhythm without murmurs. RESPIRATORY: Breath sounds equal bilaterally. No accessory muscle use. GASTROINTESTINAL: Abdomen soft, non-tender, nondistended. EXTREMITIES: No cyanosis, or edema. MUSCULOSKELETAL: Adequate muscle tone. NEUROLOGICAL: No obvious focal deficit. Awake, alert, and oriented x3. PSYCHIATRIC: Appropriate mood and affect; insight and judgment normal. Assessment/Plan Problem List: (1) Malignant lymphoma, high grade Status: Acute Plan: --No lymphoma noted in BMB. --Received Rituxan 11/18/16 --Will start CHOP today (2) Sepsis Status: Acute Plan: --ONE blood culture + GPR -Vancomycin was d/c, remain afebrile --ID following --patient afebrile, without symptoms-->likely a contaminant Assessment 66y/o with malignant high grade lymphoma admitted with weakness. h/o Thrombocytopenia. Depression Panic attack. Hyperlipidemia. Plan 1. Platelets transfusion prn 2. CHOP today. 3. Continue daily CBC, supportive care with transfusions. Gregg Booth MD Nov 20, 2016 07:43
[2016-11-20 07:48] LABS: BICARBONATE 28.2 MEQ/L (21.0-32.0); CALCIUM-PROTEIN CORRECTED 8.3 MG/DL (8.5-10.1); POTASSIUM 3.9 MEQ/L (3.5-5.1); TOTAL BILIRUBIN ADULT 1.7 MG/DL (0.2-1.0); URIC ACID 0.7 MG/DL (2.6-7.2)
[2016-11-20 08:21] LABS: PLATELET ESTIMATE SMEAR RARE (NORMAL); PLATELET MORPHOLOGY NORMAL (NORMAL); SCAN/DIFF AUTO DIFF CONFIRMED
--- NOTE | 2016-11-20 08:22 | RADRPT ---
EXAM DATE/TIME: 11/18/2016 13:39 [facility] COMPARISON: No previous studies available for comparison. INDICATIONS : Patient is in need of placement of a PICC line for medication administration. MEDICAL HISTORY : History of lymphoma, thrombocytopenia, anemia, SIRS, hyperlipidemia, tinnitis, hydrocephalus. SURGICAL HISTORY : History of left hip and left arm ORIF. ENCOUNTER: Initial ACUITY: 2 days PAIN SCORE: 0/10 FLUORO TIME: 0.53 minutes IMAGE SERIES: 1 ACCESS: Right basilic vein MEDICATION(S): 1.) 200 units Heparin catheter lock DEVICE(S): 1.) 4 [place] single lumen 38 cm Xcela Power PICC PROCEDURE : 1. Ultrasound guidance for venous catheterization. 2. Fluoroscopic guidance. 3. Ultrasound & fluoroscopic guided central venous Power PICC line placement. The risks, benefits and alternatives to the procedure were explained and verbal and written consent w as obtained. The site was prepped in sterile fashion. Full sterile technique was used, including ca p, mask, sterile gloves and gown and a large sterile sheet. Hand hygiene and 2% chlorhexidine prep w as utilized per protocol for cutaneous antisepsis with appropriate dry time for site. The skin and s ubcutaneous tissues were infiltrated with local anesthetic solution. Under direct ultrasound guidance, a suitable vein was accessed and a measuring guidewire was introduc ed and positioned in the central venous system. The ultrasound images depicting access guidance were saved and stored to PACS for permanent record. A Power Injectable PICC line was cut to prescribed length and introduced, positioned with tip at the cavoatrial junction level. The line was flushed and secured per protocol. CONCLUSION: 1. Uncomplicated central venous Power PICC line placement. 2. The PICC line can be used immediately. Zeb Guan MD on November 20, 2016 at 8:20 Board Certified Radiologist. This report was verified electronically.
[2016-11-20] MEDS: ALLOPURINOL 300 MG TAB PO SCH (08:40)
[2016-11-20] MEDS: SODIUM CHLORIDE 0.9% FLUSH 10 ML FLUSH IVF SCH (08:46)
[2016-11-20] MEDS ORDERED: SODIUM CHLOR 0.9% 250 ML INJ 250 ML IV ONE (12:00)
[2016-11-20] MEDS ORDERED: diphenhydrAMINE HCL 25 MG CAP PO PRN (12:15)
[2016-11-20] MEDS ORDERED: ACETAMINOPHEN 325 MG TAB PO PRN (12:15)
[2016-11-20] MEDS: ACETAMINOPHEN 325 MG TAB PO PRN (12:47)
[2016-11-20] MEDS: diphenhydrAMINE HCL 25 MG CAP PO PRN (12:47)
[2016-11-20] MEDS ORDERED: GRANISETRON HCL 1 MG/ML VIAL IV PUSH ONE (13:30)
[2016-11-20] MEDS ORDERED: DEXAMETHASONE INJ 20 MG in SODIUM CHLORIDE 0.9% INJ 50 ML IV ONE (13:30)
[2016-11-20] MEDS ORDERED: SODIUM CHLOR 0.9% 250 ML INJ 250 ML IV SCH (14:00)
[2016-11-20] MEDS ORDERED: DOXORUBICIN IV ONE (14:00)
[2016-11-20] MEDS ORDERED: DOXOrubicin HCL 10 MG/5 ML INJ IV-CENTRAL ONE (14:00)
[2016-11-20] MEDS ORDERED: VINCRISTINE IV PUSH ONE (14:15)
[2016-11-20] MEDS ORDERED: CYCLOPHOSPHAMIDE IV ONE (14:30)
[2016-11-20] MEDS ORDERED: SODIUM CHLORID 0.9% IV ONE (14:30)
[2016-11-20] MEDS: PANTOPRAZOLE SODIUM 40 MG VIAL IV PUSH SCH (15:27)
[2016-11-20] MEDS: predniSONE 20 MG TAB PO SCH (15:54)
--- NOTE | 2016-11-20 16:04 | HHI.PR ---
Subjective Remarks Follow-up for lymphoma No bleeding, patient doesn't have any complaints. No pain. No nausea or vomiting. Afebrile. Objective Vitals Vital Signs Date Time Temp Pulse Resp B/P Pulse Ox O2 Delivery O2 Flow Rate FiO2 11/20/16 14:06 99.8 100 16 127/73 93 11/20/16 12:47 99.3 90 16 143/76 95 11/20/16 12:00 99.1 97 16 135/79 92 11/20/16 08:47 16 11/20/16 08:35 90 11/20/16 08:00 98.7 86 16 152/88 91 11/20/16 04:00 97.1 81 17 124/76 93 11/20/16 00:00 96.6 77 18 130/80 95 11/19/16 20:00 98.0 67 18 135/76 94 I/O 11/19/16 11/19/16 11/19/16 11/20/16 11/20/16 11/20/16 07:00 15:00 23:00 07:00 15:00 23:00 Intake Total 772 ml 600 ml Output Total 1530 ml 550 ml Balance 772 ml -930 ml -550 ml Intake Oral 600 ml IV Total 772 ml Output Urine Total 1530 ml 550 ml # Voids 2 Result Diagram: 11/20/16 0542 11/20/16 05 Objective Remarks General: Thin male in no acute distress. Heart: Regular rate and rhythm. No murmur. Lungs: Clear to auscultation bilaterally. No wheezes, rales, or rhonchi. Breathing is nonlabored. Abdomen: Soft, nontender, nondistended. Extremities: No lower extremity edema. Skin: Dry skin diffusely. Multiple petechiae, ecchymosis on extremities. Alert awake and oriented 3. No new neurologic deficits. Procedures 11/16/16 bone marrow biopsy A/P Problem List: (1) Thrombocytopenia ICD Code: D69.6 Status: Acute (2) Lymphoma ICD Code: C85.90 Status: Acute (3) Dehydration ICD Code: E86.0 Status: Acute (4) Lactic acidosis ICD Code: E87.2 Status: Acute (5) Depression ICD Code: F32.9 Status: Acute (6) SIRS (systemic inflammatory response syndrome) ICD Code: R65.10 Status: Acute (7) Hypocalcemia ICD Code: E83.51 Status: Acute (8) Hypokalemia ICD Code: E87.6 Status: Acute Assessment and Plan 1. Severe thrombocytopenia: Possibly ITP. Management per hematology/oncology. Platelet transfusion per hematology and steroids. 2. Lymphoma: Management per oncology. On CHOP, s/p Rituxan 11/18, bone marrow biopsy did not show any lymphoma. 3. Dehydration: Resolved. 4. Lactic acidosis: Resolved. 5. Depression: Continue Effexor, trazodone. 7. Generalized weakness: PT eval requested. 8. DVT prophylaxis: SCDs, ANGIE akil. Avoid chemical prophylaxis secondary to severe thrombocytopenia. 9. Hypocalcemia: Supplement calcium. Monitor on telemetry. 10. Anemia: H&H slightly improved following transfusion. 11. Hypokalemia: Supplement potassium. 12. Low-grade bacteremia- initial blood culture positive for staph, peaked blood culture negative. Antibiotics stopped, unknown significance per infectious disease. Asymptomatic, monitor. 12. CODE STATUS: Full code. The patient states that he wants to discuss this with his brother, who is his [employer], before changing his CODE STATUS. Arian Arceo MD Nov 20, 2016 16:04
[2016-11-20] MEDS ORDERED: MEPERIDINE HCL 25 MG/ML VIAL IV ONE (19:45)
[2016-11-20] MEDS ORDERED: FUROSEMIDE 40 MG/4 ML VIAL ONE (20:06)
[2016-11-20 20:20] LABS: AUTOMATED NEUTROPHIL # 2.3 TH/MM3 (1.8-7.7); BASOPHIL % 0.8 % (0.0-2.0); EOSINOPHIL % 0.1 % (0.0-4.0); HEMATOCRIT 26.3 % (39.0-51.0); LYMPH % 9.5 % (9.0-44.0); LYMPHOCYTE # 0.2 TH/MM3 (1.0-4.8); MEAN CELL VOLUME 84.1 FL (80.0-100.0); MEAN CORPUSCULAR HEMOGLOBIN 29.9 PG (27.0-34.0); MEAN CORPUSCULAR HGB CONC 35.6 % (32.0-36.0); MONO % 2.4 % (0.0-8.0); NEUT % 87.2 % (16.0-70.0); PLATELET COUNT 25 TH/MM3 (150-450); RED BLOOD COUNT 3.13 MIL/MM3 (4.50-5.90); WHITE BLOOD COUNT 2.6 TH/MM3 (4.0-11.0)
[2016-11-20 20:21] LABS: HEMO FLAGS AUTO DIFF
[2016-11-20] MEDS ORDERED: RESP: ALBUTEROL 2.5 MG/IPRATROPIUM 0.5 MG NEB (PRN) NEB ×2 (20:30→22:30)
--- NOTE | 2016-11-20 20:33 | HHI.PR ---
Addendum to Inpatient Note Addendum Reason: Additional Documentation Additional Information S: Patient is a 66-year-old man who is undergoing chemotherapy when he started having shortness of breath and decreased oxygen saturation as low as 77% and tachycardia to the 150s. At that time, a [facility] was called for respiratory distress, and resident team was notified by call center. Patient reported shortness of breath, but seemed too tired to respond to questions. Per nurse, patient has been conversational with her all day. Patient did receive recent morphine and Demerol, but that did not seem to affect his mental status previously. O: Per nurse report, pulse ox was as low as 77% on room air and patient had a pulse in the 150s. One resident team was at bedside, patient had a heart rate in the 150s, blood pressure 145/89, was satting 98% on 2 L nasal cannula. Gen.: Tired, thin-appearing male lying in bed in no acute distress on 2 L/min nasal cannula Cardiovascular: Tachycardic rate Respiratory: Diffuse bilateral expiratory wheezes, some mildly wet, rhonchorous breath sounds bilaterally Extremities: No pitting edema or calf tenderness Neurological: Patient seems too tired to answer questions A/P: 66-year-old man who is undergoing chemotherapy started having sudden onset of respiratory distress, which seems to be helped significantly by 2 L nasal cannula. However, patient remains tachycardic to 150s. Oncologist Dr. Knox and primary Dr. Siddiqui were notified. Differential diagnosis includes asthma exacerbation, COPD exacerbation, chemotherapy therapy reaction, cardiac arrhythmia, PE. Wells score of 4 points, which is moderate risk (but scores less than or equal to 4 are unlikely to represent PE). Consider CT pulmonary angiogram. Of note, patient is thrombopenic with platelets of 8; consider HIT, DIC. Lasix 40 mg IV and Gregorio DuoNeb's Chest x-ray, EKG, CBC, CMP, lactic acid Consider PE rule out Depending on EKG, consider calcium channel frank or beta frank Consider BiPAP, intubation if clinical deterioration Josiah Shi MD R1 Nov 20, 2016 20:33
[2016-11-20 20:58] LABS: BICARBONATE 21.2 MEQ/L (21.0-32.0); CALCIUM-PROTEIN CORRECTED 7.9 MG/DL (8.5-10.1); TOTAL BILIRUBIN ADULT 2.1 MG/DL (0.2-1.0)
--- NOTE | 2016-11-20 20:58 | RADRPT ---
EXAM DATE/TIME: 11/20/2016 20:13 [facility] COMPARISON: CT THORAX W CONTRAST, November 16, 2016, 9:39. CHEST SINGLE AP, November 16, 2016, 4:39. CHEST SINGLE AP, October 29, 2016, 17:19. INDICATIONS : Tachycardia, distress MEDICAL HISTORY : Gastroesophageal reflux disease. SURGICAL HISTORY : None. ENCOUNTER: Subsequent ACUITY: 1 month PAIN SCORE: 0/10 LOCATION: Bilateral chest FINDINGS: Right arm PICC line is present in good position. There are now fairly symmetric bilateral predominant ly central interstitial and alveolar parenchymal opacities. No definite effusion. Cardiac contours ar e grossly stable. CONCLUSION: Diffuse bilateral infiltrates Zeb Guan MD on November 20, 2016 at 20:55 Board Certified Radiologist. This report was verified electronically.
[2016-11-20 21:33] LABS: SCAN/DIFF AUTO DIFF CONFIRMED
--- NOTE | 2016-11-20 21:56 | PD.CONS ---
[facility] Service Critical Care Medicine Consult Requested By Dr. Siddiqui Reason for Consult Critical care management. Patient with large cell lymphoma was with acute hypoxia on floor. Sinus tachycardia. Primary Care Physician Mandeep Ragland MD History of Present Illness 66-year-old man. Date of admission 11/16/2016. Date of consultation . Past medical history malignant large cell lymphomahigh-grade, dyslipidemia, depression/panic attacks. He has been quite fatigued and is able to live independently for the past several months. He seen by Dr. booth 10/29/16 with multiple imaging showing lymphadenopathy in the iliac and inguinal regions and airspace disease in bilateral lungs. She had a lymph node biopsy 10/24 which revealed malignant lymphoma/high-grade. 11/16, patient presented ED with general as weakness, petechiae/rash and bruises and dry skin. Platelet count 3000. Patient has received 6pack platelets/1 pack with leukoreduced platelets and one leukoreduced RBCs during this admission. No bleeding. Patient had a PICC line placed during this admission. She has received Rituxan 577.5 mg on 11/18. He is also on prednisone 80 mg daily 5 days. Today patient received Adriamycin 79 mg IV, vincristine 2 mg IV with Decadron 20 mEq IV 1 and was receiving cyclophosphamide 1185 mg when getting acutely short of breath. Saturations are 77% room air and currently is on 2 L nasal cannula. Noted to have a sinus tachycardia in the 140s to 150s. Denied chest pains or palpitations. Patient was thought to be short of breath due to volume overload with wheezing and crackles. Received Demerol 25 mill grams IV 1 and Lasix 40 mEq IV 1 with 500 cc urine output. Chest x-ray received bilateral infiltrates. Patient does have some JVD bruits can appears very dry. Appears comfortable despite sinus tachycardia. Low-grade temperature 99.3. Has been seen by ID and previously and vancomycin. Review of Systems Constitutional: COMPLAINS OF: Fatigue, Fever, Weight loss, DENIES: Weight gain Endocrine: DENIES: Polydipsia, Polyuria Eyes: DENIES: Blurred vision, Double Vision Ears, nose, mouth, throat: DENIES: Tinnitus, Hoarseness Respiratory: COMPLAINS OF: Shortness of breath, DENIES: Apneas, Sputum production Cardiovascular: DENIES: Chest pain, Lower Extremity Edema Gastrointestinal: COMPLAINS OF: Nausea, DENIES: Abdominal pain, Vomiting Genitourinary: DENIES: Urgency Musculoskeletal: DENIES: Joint pain Integumentary: COMPLAINS OF: Abnormal pigmentation, Rash, DENIES: Pruritus Hematologic/lymphatic: COMPLAINS OF: Bruising Immunologic/allergic: DENIES: Eczema Neurologic: DENIES: Headache Psychiatric: DENIES: Confusion Past Family Social History Allergies: Uncoded Allergies: TYPHOID (Allergy, Severe, Anaphylaxis, 06/28/13) Past Medical History Malignant large cell lymphoma/high-grade Osteoporosis/osteoarthritis Dyslipidemia Depression Panic attacks Thrombocytopenia Past Surgical History ORIF left hip/arm Right inguinal lymph node biopsy Blanco cyst excision Reported Medications Fosamax 70 mg by mouth weekly Effexor 50 mg by mouth daily Trazodone 100 mg by mouth daily Active Ordered Medications Reviewed in EMR Family History Follow with COPD. Mother with dementia. Social History Quit tobacco 30 years ago. 16 pack years. Around 2 to 3 cigars recently. None current. Prior alcohol use denies current. No IV drug use. Physical Exam Vital Signs Vital Signs Date Time Temp Pulse Resp B/P Pulse Ox O2 Delivery O2 Flow Rate FiO2 11/20/16 19:53 98 Nasal Cannula 3.00 11/20/16 19:53 98 3.00 11/20/16 18:40 16 11/20/16 16:00 96.8 100 16 136/87 94 11/20/16 14:06 99.8 100 16 127/73 93 11/20/16 12:47 99.3 90 16 143/76 95 11/20/16 12:00 99.1 97 16 135/79 92 11/20/16 08:35 90 11/20/16 08:00 98.7 86 16 152/88 91 11/20/16 04:00 97.1 81 17 124/76 93 11/20/16 00:00 96.6 77 18 130/80 95 Physical Exam GENERAL: 66-year-old male, critically ill currently resting in bed on nasal cannula SKIN: Warm and dry. Multiple petechiae on thorax abdomen/upper lower extremities. HEAD: Atraumatic. Normocephalic. EYES: Pupils equal and round about 3 Evans's bilaterally and reactive. No scleral icterus. No injection or drainage. ENT: No nasal bleeding or discharge. Mucous membranes pink and moist. NECK: Trachea midline. + JVD. CARDIOVASCULAR: Tachycardic, RR. S1, S2. No S4. Without murmur RESPIRATORY: Few fine crackles appreciated bilateral. No wheezing is appreciated currently.. Breath sounds equal bilaterally. GASTROINTESTINAL: Abdomen soft, non-tender, nondistended. Active bowel sounds are appreciated MUSCULOSKELETAL: Extremities without clubbing, cyanosis, or edema. NEUROLOGICAL: Awake and alert. No obvious cranial nerve deficits. Motor grossly within normal limits. Five out of 5 muscle strength in the arms and legs. Normal speech. PSYCHIATRIC: Appropriate mood and affect; insight and judgment normal. Laboratory Laboratory Tests Test 11/20/16 11/20/16 11/20/16 05:42 12:01 20:02 White Blood Count 3.1 2.6 Red Blood Count 2.76 3.13 Hemoglobin 8.1 9.4 Hematocrit 23.1 26.3 Mean Corpuscular Volume 83.9 84.1 Mean Corpuscular Hemoglobin 29.2 29.9 Mean Corpuscular Hemoglobin 34.9 35.6 Concent Red Cell Distribution Width 13.9 14.0 Platelet Count 8 25 Mean Platelet Volume 9.3 7.6 Neutrophils (%) (Auto) 88.4 87.2 Lymphocytes (%) (Auto) 6.9 9.5 Monocytes (%) (Auto) 4.3 2.4 Eosinophils (%) (Auto) 0.1 0.1 Basophils (%) (Auto) 0.3 0.8 Neutrophils # (Auto) 2.7 2.3 Lymphocytes # (Auto) 0.2 0.2 Monocytes # (Auto) 0.1 0.1 Eosinophils # (Auto) 0.0 0.0 Basophils # (Auto) 0.0 0.0 CBC Comment AUTO DIFF AUTO DIFF Differential Comment AUTO DIFF AUTO DIFF CONFIRMED CONFIRMED Platelet Estimate RARE Platelet Morphology Comment NORMAL Red Cell Morphology Comment NORMAL Sodium Level 139 137 Potassium Level 3.9 4.0 Chloride Level 105 103 Carbon Dioxide Level 28.2 21.2 Anion Gap 6 13 Blood Urea Nitrogen 9 10 Creatinine 0.43 0.84 Estimat Glomerular Filtration 199 92 Rate Random Glucose 80 121 Uric Acid 0.7 0.6 Calcium Level 7.2 7.1 Protein Corrected Calcium 8.3 7.9 Total Bilirubin 1.7 2.1 Aspartate Amino Transf 72 87 (AST/SGOT) Alanine Aminotransferase 65 73 (ALT/SGPT) Alkaline Phosphatase 171 220 Lactate Dehydrogenase 1109 Total Protein 5.0 5.6 Albumin 1.9 2.1 Blood Bank Comment Lactic Acid Level 7.5 Date/Time Procedure Status Source Growth 11/16/16 04:55 Aerobic Blood Culture - Final Resulted Blood Peripheral Staph Sp Coagulase Negative 11/16/16 04:55 Anaerobic Blood Culture - Preliminary Resulted Blood Peripheral NO GROWTH IN 4 DAYS 11/16/16 04:50 Aerobic Blood Culture - Preliminary Resulted Blood Peripheral NO GROWTH IN 4 DAYS 11/16/16 04:50 Anaerobic Blood Culture - Preliminary Resulted Blood Peripheral NO GROWTH IN 4 DAYS Result Diagram: 11/20/16200111/20/162001 Imaging Last Impressions Chest X-Ray 11/20/16 0000 Signed Impressions: Service Date/Time: November 20:13 - CONCLUSION: Diffuse bilateral infiltrates Zeb Guan MD PICC Line Insertion 11/18/16 0000 Signed Impressions: Service Date/Time: Friday, November 18, 2016 13:39 - CONCLUSION: 1. Uncomplicated central venous Power PICC line placement. 2. The PICC line can be used immediately. Zeb Guan MD Chest CT 11/16/16 0000 Signed Impressions: Service Date/Time: Wednesday, November 16, 2016 09:39 - CONCLUSION: Overall worsening axillary, hilar and mediastinal adenopathy and airspace consolidative processes. Given the patient's prior history of lymphoma this is most consistent with recurrent versus worsening lymphoma. Marce Rajput MD Assessment and Plan Assessment and Plan Neuro/Psych: Depression History of panic attacks Effexor 50 mg by mouth daily for depression Continue trazodone 100 milligrams daily for anxiety [place]/as needed morphine for pain management Acetaminophen as needed for fever CV: Sinus tachycardia History dyslipidemia Lactic acidosis unclear etiology Sinus tachycardia unclear. Checking CTA chest. IV fluids currently at TKO. Did receive Lasix 40 mEq IV 1 and 4. Echocardiogram 11/17 revealed EF 55-60%. No regional wall motion abnormality. Systolic function normal. Follow-up on lactate. Unclear etiology Resp: Acute respiratory insufficiency History of tobaccoism Chest x-ray revealed bilateral pulmonary infiltrate. Follow up CTA chest. Unlikely PE. Bronchodilator therapy every 6 hours and as needed Nasal cannula to maintain saturations greater than equal to 92% Did receive 40 mg IV Lasix on floor. 500 cc urine output. Patient appears comfortable with no accessory muscle usage TRALI/TACO part of the differential with transfusions as described above.. Infectious part of the differential due to her compromised state GI: Elevated total bilirubin/AST Patient is currently nothing by mouth Protonix for GI prophylaxis Recheck CMP in a.m. Possibly congestion : Gregorio is not indicated currently. Endo: Sliding-scale insulin if indicated with Decadron/prednisone use Renal: Creatinine currently within normal limits Monitor urine output closely Accurate I's and O's Follow-up on BMP in a.m. Heme: High-grade malignant large cell lymphoma Leukopenia Normocytic anemia - transfuse 1 unit PRBCs this admission Thrombocytopenia - transfused 7 pack platelets since admission Hypogammaglobinemia Dr. Booth/oncology following On prednisone 80 mg daily 5 days start 11/18 Received Rituxan 577.5 mg 11/18 Receive vincristine 2 mg IV, Adriamycin 79 mg IV today. Did not receive total cyclophosphamide today. Did receive Decadron 20 mEq IV 1. On allopurinol 300 mg by mouth daily prevent tumor lysis syndrome. Uric acid pending CHOP therapy currently on hold ID: Infectious disease is following. Will obtain blood cultures 2. Restart vancomycin and add cefepime 1. Reassess in a.m. MSK: Osteoporosis/osteoarthritis History ORIF left hip/arm History of Blanco cyst Holding Fosamax 70 mg by mouth weekly. FEN: Replace electrolytes as clinically indicated Access - Utilize right upper extremity PICC. Prophylaxis - GI - Protonix - DVT - SCD/pharmacological prophylaxis contraindicated with thrombocytopenia Critical Care: The total critical care time was 55 minutes. Time to perform other separately billable procedures was not included in the critical care time. Code Status Full code Discussed Condition With Patient. RN. Care plan discussed and all questions answered. Gunner Reveles MD Nov 20, 2016 21:56
[2016-11-20] MEDS ORDERED: Vancomycin Consult Pharmacy 1 EA OTHER SCH (22:00)
[2016-11-20] MEDS ORDERED: VANCOMYCIN 1,000 MG/NS 250 ML IV ONE ×2 (22:00)
--- NOTE | 2016-11-20 22:20 | EKG ---
Date Performed: 11/20/2016 Time Performed: 20:25:41 PTAGE: 66 years EKG: SINUS TACHYCARDIA WITH SHORT FL INTERVAL LOW QRS VOLTAGE IN EXTREMITY LEADS NONSPECIFIC T-W AVE ABNORMALITY ABNORMAL RHYTHM ECG NO PREVIOUS TRACING DOCTOR: Sebastián Cabrales Interpretating Date/Time 11/20/2016 22:20:03
[2016-11-20] MEDS: VENLAFAXINE HCL 25 MG TAB PO SCH (22:30)
[2016-11-21] VITALS (20 sets, daily range): BP systolic 82–124; BP diastolic 30–77; PULSE 75–152; RESP 17–29; TEMP 96.8–98.2; O2SAT 85–100
[2016-11-21] MEDS: CEFEPIME INJ 2,000 MG in SODIUM CHLORIDE 0.9% INJ 100 ML IV SCH ×2 (00:29→08:28)
[2016-11-21] MEDS ORDERED: EPINEPHrine HCL (1:10,000) 1 MG/10 ML SYRINGE ONE (00:41)
[2016-11-21] MEDS ORDERED: ATROPINE SULFATE 1 MG/10 ML SYRINGE ONE (00:41)
[2016-11-21] MEDS ORDERED: IOHEXOL 350 MG/ML 10 ML VIAL (for RAD DIAG) IV ONE (01:02)
--- NOTE | 2016-11-21 01:18 | RADRPT ---
EXAM DATE/TIME: 11/21/2016 00:49 [facility] COMPARISON: CT THORAX W CONTRAST, November 16, 2016, 9:39. INDICATIONS : Dyspnea IV CONTRAST: 65 cc Omnipaque 350 (iohexol) IV RADIATION DOSE: 6.1 CTDIvol (mGy) MEDICAL HISTORY : Lymphoma. SURGICAL HISTORY : None. ENCOUNTER: Initial ACUITY: 1 day PAIN SCALE: 3/10 LOCATION: Bilateral chest TECHNIQUE: Volumetric scanning of the chest was performed using a pulmonary embolism protocol MIP images were re constructed. Using automated exposure control and adjustment of the mA and/or kV according to patien t size, radiation dose was kept as low as reasonably achievable to obtain optimal diagnostic quality images. FINDINGS: PULMONARY ARTERIES: There is a single small filling defect in a branch of the pulmonary artery to the right lower lung. T his is consisting with a focal pulmonary embolus. Otherwise the rest of the arterial system is patent with no other definite filling defects demonstrated. LUNGS: There are scattered bilateral interstitial infiltrates PLEURAE: Bilateral pleural effusions MEDIASTINUM: Several prominent and diffusely enlarged lymph nodes in mediastinum characteristic of mediastinal ellis nopathy. MUSCULOSKELETAL: Within normal limits for patient age. There is bilateral axillary adenopathy. MISCELLANEOUS: The visualized upper abdominal organs demonstrate no acute abnormality. CONCLUSION: 1. Single focal filling defect in a branch of the right lower lobe pulmonary artery characteristic of a focal pulmonary embolus. 2. Scattered bilateral interstitial infiltrates with bilateral pleural effusions suggestive of pulmon carlos edema versus pneumonia. 3. Diffuse mediastinal and bilateral axillary adenopathy. Seth Guillen MD on November 21, 2016 at 1:08 Board Certified Radiologist. This report was verified electronically.
[2016-11-21] MEDS: MORPHINE SULFATE 4 MG/ML INJ IV PRN ×2 (01:32→18:14)
[2016-11-21] MEDS ORDERED: BUMETANIDE INJ 1 MG/4 ML VIAL IV PUSH ONE (02:00)
[2016-11-21] MEDS ORDERED: ALBUMIN HUMAN 25% 25 GM/100 ML BAGP IV ONE (03:00)
[2016-11-21] MEDS: RESP: ALBUTEROL 2.5 MG/IPRATROPIUM 0.5 MG NEB (SCH) NEB ×4 (03:00→20:52)
[2016-11-21 05:35] LABS: AUTOMATED NEUTROPHIL # 4.4 TH/MM3 (1.8-7.7); BASOPHIL % 0.1 % (0.0-2.0); EOSINOPHIL % 0.1 % (0.0-4.0); HEMATOCRIT 24.4 % (39.0-51.0); LYMPH % 3.4 % (9.0-44.0); LYMPHOCYTE # 0.2 TH/MM3 (1.0-4.8); MEAN CELL VOLUME 84.5 FL (80.0-100.0); MEAN CORPUSCULAR HEMOGLOBIN 29.7 PG (27.0-34.0); MEAN CORPUSCULAR HGB CONC 35.2 % (32.0-36.0); MONO % 1.8 % (0.0-8.0); NEUT % 94.6 % (16.0-70.0); RED BLOOD COUNT 2.88 MIL/MM3 (4.50-5.90); RED CELL DISTRIBUTION WIDTH 13.6 % (11.6-17.2); WHITE BLOOD COUNT 4.6 TH/MM3 (4.0-11.0)
[2016-11-21 05:37] LABS: BICARBONATE 25.2 MEQ/L (21.0-32.0); CALCIUM-PROTEIN CORRECTED 7.8 MG/DL (8.5-10.1); MAGNESIUM 1.9 MG/DL (1.5-2.5); POTASSIUM 4.1 MEQ/L (3.5-5.1); TOTAL BILIRUBIN ADULT 1.9 MG/DL (0.2-1.0)
[2016-11-21 05:42] LABS: HEMO FLAGS AUTO DIFF
[2016-11-21 05:46] LABS: PLATELET COUNT 8 TH/MM3 (150-450)
[2016-11-21 07:03] LABS: PLATELET ESTIMATE SMEAR RARE (NORMAL)
[2016-11-21 07:04] LABS: PLATELET MORPHOLOGY NORMAL (NORMAL); SCAN/DIFF AUTO DIFF CONFIRMED
--- NOTE | 2016-11-21 07:32 | RADRPT ---
EXAM DATE/TIME: 11/21/2016 05:27 [facility] COMPARISON: CHEST SINGLE AP, November 20, 2016, 20:13. CT PULMONARY ANGIOGRAM, November 21, 2016, 0:49. INDICATIONS : Shortness of breath. MEDICAL HISTORY : Gastroesophageal reflux disease. SURGICAL HISTORY : None. ENCOUNTER: Subsequent ACUITY: 1 month PAIN SCORE: Non-responsive. LOCATION: chest FINDINGS: Right arm PICC line is stable in satisfactory position. There has been slight interval decrease in co nfluence of diffuse bilateral edema. Cardiac contours are grossly stable. CONCLUSION: Slight improvement in aeration Zeb Guan MD on November 21, 2016 at 7:29 Board Certified Radiologist. This report was verified electronically.
[2016-11-21] MEDS: ALLOPURINOL 300 MG TAB PO SCH (08:27)
[2016-11-21] MEDS: predniSONE 20 MG TAB PO SCH (08:27)
[2016-11-21] MEDS: SODIUM CHLORIDE 0.9% FLUSH 10 ML FLUSH IVF SCH (08:28)
[2016-11-21] MEDS ORDERED: SODIUM CHLOR 0.9% 250 ML INJ 250 ML IV ONE (08:30)
--- NOTE | 2016-11-21 08:53 | PD.ONC.PN ---
Subjective Subjective Remarks Developed sinus tach,rigor and SOB while receiving Cytoxan yesterday. No CP or SOB this am. Objective Data Date Time Temp Pulse Resp B/P Pulse Ox O2 Delivery O2 Flow Rate FiO2 11/21/16 04:00 98.0 120 25 116/74 95 11/21/16 03:00 99 Nasal Cannula 3.00 11/21/16 01:37 28 11/21/16 00:00 98.2 139 29 92/75 95 11/20/16 23:00 130 11/20/16 21:30 98.7 132 32 105/77 95 11/20/16 19:53 98 Nasal Cannula 3.00 11/20/16 19:53 98 3.00 11/20/16 16:00 96.8 100 16 136/87 94 11/20/16 14:06 99.8 100 16 127/73 93 11/20/16 12:47 99.3 90 16 143/76 95 11/20/16 12:00 99.1 97 16 135/79 92 Result Diagram: 11/21/16 0435 11/21/16 0435 Laboratory Results Laboratory Tests Test 11/20/16 11/20/16 11/20/16 11/21/16 12:01 20:02 23:20 04:35 Blood Bank Comment White Blood Count 2.6 TH/MM3 4.6 TH/MM3 Red Blood Count 3.13 MIL/MM3 2.88 MIL/MM3 Hemoglobin 9.4 GM/DL 8.6 GM/DL Hematocrit 26.3 % 24.4 % Mean Corpuscular Volume 84.1 FL 84.5 FL Mean Corpuscular Hemoglobin 29.9 PG 29.7 PG Mean Corpuscular Hemoglobin 35.6 % 35.2 % Concent Red Cell Distribution Width 14.0 % 13.6 % Platelet Count 25 TH/MM3 8 TH/MM3 Mean Platelet Volume 7.6 FL 9.8 FL Neutrophils (%) (Auto) 87.2 % 94.6 % Lymphocytes (%) (Auto) 9.5 % 3.4 % Monocytes (%) (Auto) 2.4 % 1.8 % Eosinophils (%) (Auto) 0.1 % 0.1 % Basophils (%) (Auto) 0.8 % 0.1 % Neutrophils # (Auto) 2.3 TH/MM3 4.4 TH/MM3 Lymphocytes # (Auto) 0.2 TH/MM3 0.2 TH/MM3 Monocytes # (Auto) 0.1 TH/MM3 0.1 TH/MM3 Eosinophils # (Auto) 0.0 TH/MM3 0.0 TH/MM3 Basophils # (Auto) 0.0 TH/MM3 0.0 TH/MM3 CBC Comment AUTO DIFF AUTO DIFF Differential Comment AUTO DIFF AUTO DIFF CONFIRMED CONFIRMED Sodium Level 137 MEQ/L 138 MEQ/L Potassium Level 4.0 MEQ/L 4.1 MEQ/L Chloride Level 103 MEQ/L 103 MEQ/L Carbon Dioxide Level 21.2 MEQ/L 25.2 MEQ/L Anion Gap 13 MEQ/L 10 MEQ/L Blood Urea Nitrogen 10 MG/DL 13 MG/DL Creatinine 0.84 MG/DL 0.75 MG/DL Estimat Glomerular Filtration 92 ML/MIN 105 ML/MIN Rate Random Glucose 121 MG/DL 135 MG/DL Lactic Acid Level 7.5 mmol/L 3.3 mmol/L Uric Acid 0.6 MG/DL 1.0 MG/DL Calcium Level 7.1 MG/DL 7.2 MG/DL Protein Corrected Calcium 7.9 MG/DL 7.8 MG/DL Total Bilirubin 2.1 MG/DL 1.9 MG/DL Aspartate Amino Transf 87 U/L 96 U/L (AST/SGOT) Alanine Aminotransferase 73 U/L 70 U/L (ALT/SGPT) Alkaline Phosphatase 220 U/L 193 U/L B-Type Natriuretic Peptide 357 PG/ML Total Protein 5.6 GM/DL 6.0 GM/DL Albumin 2.1 GM/DL 2.7 GM/DL Nasal Screen MRSA (PCR) NEGATIVE Platelet Estimate RARE Platelet Morphology Comment NORMAL Basophilic Stippling FAINT Phosphorus Level 2.7 MG/DL Magnesium Level 1.9 MG/DL Lactate Dehydrogenase 1458 U/L Total Creatine Kinase 175 U/L Troponin I 2.07 NG/ML Thyroid Stimulating Hormone 0.914 uIU/ML 3rd Gen Test 11/21/16 06:05 Blood Bank Comment Culture Results Microbiology Date/Time Procedure Status Source Growth 11/20/16 22:50 Aerobic Blood Culture Received Blood Peripheral Pending 11/20/16 22:50 Anaerobic Blood Culture Received Blood Peripheral Pending 11/20/16 22:55 Aerobic Blood Culture Received Blood Peripheral Pending 11/20/16 22:55 Anaerobic Blood Culture Received Blood Peripheral Pending Imaging Studies Last 24 hours Impressions Chest X-Ray 11/21/16 0600 Signed Impressions: Service Date/Time: Monday, November 21, 2016 05:27 - CONCLUSION: Slight improvement in aeration Zeb Guan MD Administered Medications Medications (Trade) Dose Ordered Sig/Tricia Route PRN Reason Start Time Stop Time Status Last Admin Dose Admin Acetaminophen (Tylenol) 650 mg Q6H PRN PO FEVER/PAIN SCALE 1 TO 2 11/16/16 07:00 11/18/16 14:55 Acetaminophen/ Hydrocodone Bitart ([place] 5-325 Mg) 1 tab Q4H PRN PO PAIN SCALE 3 TO 5 11/16/16 07:00 11/18/16 03:43 Morphine Sulfate (Morphine Inj) 2 mg Q3H PRN IV Pain 6-10 11/16/16 07:00 11/21/16 01:32 Allopurinol 300 mg 300 mg DAILY PO 11/18/16 09:00 11/21/16 08:27 Rituximab/Sodium Chloride (Rituxan Inj/NS 500 ml Inj) 557.5 ml @ 48 mls/hr Q7D IV 11/18/16 14:00 11/18/16 16:38 Sodium Chloride (NS Flush) DAILY IVF 11/19/16 09:00 11/21/16 08:28 Heparin Sodium (Porcine) (Heparin Central Flush) DAILY IV FLUSH 11/19/16 09:00 11/19/16 09:31 Diphenhydramine HCl (Benadryl) 25 mg Q4H PRN PO PRIOR TO BLOOD PRODUCTS 11/18/16 15:15 11/20/16 12:47 Acetaminophen (Tylenol) 650 mg Q4H PRN PO PRIOR TO BLOOD PRODUCTS 11/18/16 15:15 11/20/16 12:47 Pantoprazole Sodium (Protonix Inj) 40 mg Q24H IV PUSH 11/20/16 13:00 11/20/16 15:27 Prednisone 80 mg 80 mg DAILY PO 11/20/16 14:00 11/24/16 09:01 11/21/16 08:27 Cefepime HCl/ Sodium Chloride (Maxipime Inj/NS Inj) 100 ml @ 200 mls/hr Q12H IV 11/20/16 22:00 11/21/16 08:28 Venlafaxine HCl (Effexor) 50 mg Q12H PO 11/20/16 22:30 11/20/16 22:30 Objective Remarks GENERAL: Cachectic, frail. SKIN: Warm and dry. Dry scaly skin HEAD: Normocephalic. EYES: No scleral icterus. No injection or drainage. NECK: Supple, trachea midline. No JVD or lymphadenopathy. LYMPHATIC: No adenopathy. CARDIOVASCULAR: Regular rate and rhythm without murmurs. Mild tachy RESPIRATORY: Breath sounds equal bibasilar crackles. No accessory muscle use. GASTROINTESTINAL: Abdomen soft, non-tender, nondistended. EXTREMITIES: No cyanosis, or edema. MUSCULOSKELETAL: Adequate muscle tone. NEUROLOGICAL: No obvious focal deficit. Awake, alert, and oriented x3. PSYCHIATRIC: Appropriate mood and affect; insight and judgment normal. Assessment/Plan Problem List: (1) Malignant lymphoma, high grade Status: Acute Plan: --No lymphoma noted in BMB. --Received Rituxan 11/18/16 --CHOP 11/20 but only able to received 1/2 of CYtoxan before developing rigor and sinus tach. --No evidence of tumor lysis syndrome. (2) Sepsis Status: Acute Plan: --ONE blood culture + GPR -Vancomycin was d/c, remain afebrile --ID following --patient afebrile, without symptoms-->likely a contaminant (3) Pulmonary emboli Status: Acute Plan: CTA showed small RLL PE. ?the reason for tachycardia and pulm edema. Symptoms improved this am. Can not anticoagulate with platelet of 8K. Consult IR for IVC for retrievable IVC filter placement. US LE pending. Assessment 66y/o with malignant high grade lymphoma admitted with weakness. h/o Thrombocytopenia. Depression Panic attack. Hyperlipidemia. Plan 1. Transfuse platelet today. 2. Monitor CBC, 3. Consult IR for IVC filter placement.Not candidate for anticoagulation at this time. 4.Await ECHO and LE doppler. 5. Discussed with patient. Spoke to his brother Husam who is the POA yesterday. Gregg Booth MD Nov 21, 2016 08:53
--- NOTE | 2016-11-21 09:24 | ECHLIM ---
Study Study Date:11/21/2016 STUDY CONCLUSIONS SUMMARY - Procedure narrative: Transthoracic echocardiography. Image quality was adequate. Scanning was performed from the parasternal, apical, and subcostal acoustic windows. - Left ventricle: The cavity size was mildly to moderately dilated. Wall thickness was normal. Systolic function was severely reduced. The estimated ejection fraction was in the range of 10% to 15%. The basal posterior and basal lateral osullivan contract normally; all other osullivan are severely hypokinetic or akinetic. - Ventricular septum: Flattened septum throughout the cardiac cycle suggestive of right ventricular pressure overload. - Aortic valve: Trace regurgitation. - Mitral valve: Trace regurgitation. - Tricuspid valve: Mild regurgitation. If LV function is below 40, please consider prescribing an ACEI or ARB or document rationale for non-use. PROCEDURE DATA STUDY STATUS: Elective. Procedure: Transthoracic echocardiography. Image quality was adequate. Scanning was performed from the parasternal, apical, and subcostal acoustic windows. Study completion: The patient tolerated the procedure well. Transthoracic echocardiography. M-mode, complete 2D, complete spectral Doppler, and color Doppler. Patient status: Inpatient. CARDIAC ANATOMY LEFT VENTRICLE: The cavity size was mildly to moderately dilated. Wall thickness was normal. Systolic function was severely reduced. The estimated ejection fraction was in the range of 10% to 15%. The basal posterior and basal lateral osullivan contract normally; all other osullivan are severely hypokinetic or akinetic. AORTIC VALVE: Trileaflet; normal thickness leaflets. Doppler: Transvalvular velocity was within the normal range. There was no stenosis. Trace regurgitation. AORTA: Aortic root: The aortic root was normal in size. MITRAL VALVE: Structurally normal valve. Doppler: Transvalvular velocity was within the normal range. There was no evidence for stenosis. Trace regurgitation. LEFT ATRIUM: The atrium was normal in size. RIGHT VENTRICLE: The cavity size was normal. Wall thickness was normal. VENTRICULAR SEPTUM: Flattened septum throughout the cardiac cycle suggestive of right ventricular pressure overload. PULMONIC VALVE: Doppler: Transvalvular velocity was within the normal range. There was no evidence for stenosis. No regurgitation. TRICUSPID VALVE: Structurally normal valve. Doppler: Transvalvular velocity was within the normal range. Mild regurgitation. PULMONARY ARTERY: The main pulmonary artery was normal-sized. Systolic pressure was within the normal range. RIGHT ATRIUM: The atrium was normal in size. PERICARDIUM: There was no pericardial effusion. SYSTEMIC VEINS: Inferior vena cava: The vessel was normal in size. BASIC MEASUREMENTS ADULT NORMAL Left ventricle LV internal dimension, ED, chordal level, *42.6 mm 43-52 PLAX LV internal dimension, ES, chordal level, *39.2 mm 23-38 PLAX Fractional shortening, chordal level, PLAX *8 % >29 LV posterior wall thickness, ED 7.5 mm IVS/LVPW ratio, ED 1.28 <1.3 Volume, ED, MOD, 1-plane 92 ml Volume, ES, MOD, 1-plane 70 ml Ejection fraction, MOD, 1-plane 24 % Stroke volume, MOD, 1-plane 22 ml Ventricular septum Septal thickness, ED 9.57 mm Aortic valve Leaflet separation 19 mm 15-26 Right ventricle RV internal dimension, ED, PLAX *15.7 mm 19-38 BASIC MEASUREMENTS ADULT NORMAL Aortic valve Leaflet separation 19 mm 15-26 Aorta Root diameter, ED 33 mm 20-37 DOPPLER MEASUREMENTS ADULT NORMAL Tricuspid valve Regurgitant peak velocity 329 cm/s Peak RV-RA gradient, S 43 mm Hg Maximal regurgitant velocity 329 cm/s LEGEND: Mean values are shown as u=mean value. Asterisk (*) thompson values outside specified normal range. Prepared and signed by Sebastián Cabrales [id number]
--- NOTE | 2016-11-21 10:29 | EKG ---
Date Performed: 11/21/2016 Time Performed: 00:03:20 PTAGE: 66 years EKG: Sinus tachycardia Poor R wave progression - probable normal variant Lateral T wave changes are nonspecific Low QRS voltages in limb leads Abnormal ECG NO PREVIOUS TRACING DOCTOR: Sebastián Cabrales Interpretating Date/Time 11/21/2016 10:28:19
[2016-11-21] MEDS: VENLAFAXINE HCL 25 MG TAB PO SCH (10:30)
--- NOTE | 2016-11-21 10:35 | HHI.CCPN ---
Subjective Remarks/Hospital Course 66-year-old man. Date of admission 11/16/2016. Date of consultation . Past medical history malignant large cell lymphomahigh-grade, dyslipidemia, depression/panic attacks. He has been quite fatigued and is able to live independently for the past several months. He seen by Dr. booth 10/29/16 with multiple imaging showing lymphadenopathy in the iliac and inguinal regions and airspace disease in bilateral lungs. She had a lymph node biopsy 10/24 which revealed malignant lymphoma/high-grade. 11/16, patient presented ED with general as weakness, petechiae/rash and bruises and dry skin. Platelet count 3000. Patient has received 6pack platelets/1 pack with leukoreduced platelets and one leukoreduced RBCs during this admission. No bleeding. Patient had a PICC line placed during this admission. She has received Rituxan 577.5 mg on 11/18. He is also on prednisone 80 mg daily 5 days. Today patient received Adriamycin 79 mg IV, vincristine 2 mg IV with Decadron 20 mEq IV 1 and was receiving cyclophosphamide 1185 mg when getting acutely short of breath. Saturations are 77% room air and currently is on 2 L nasal cannula. Noted to have a sinus tachycardia in the 140s to 150s. Denied chest pains or palpitations. Patient was thought to be short of breath due to volume overload with wheezing and crackles. Received Demerol 25 mill grams IV 1 and Lasix 40 mEq IV 1 with 500 cc urine output. Chest x-ray received bilateral infiltrates. Patient does have some JVD bruits can appears very dry. Appears comfortable despite sinus tachycardia. Low-grade temperature 99.3. Has been seen by ID and previously and vancomycin. 11/21: Thrombocytopenia persists. CXR clearing slightly. Will likely require lo- dose vasopressor. 11/21, 1330 hours: Patient is deteriorating with increase lung secretions and inability to control his airway. Patient is confused and inconsistent in his responses. [employer] [facility] [employer] [facility], brother Johnny, does not want his brother intubated. I have reviewed the documents. I have notified Dr. Booth and will ask Palliative Care to help sort out reasonable course of action, likely Hospice Objective Vital Signs Date Time Temp Pulse Resp B/P Pulse Ox O2 Delivery O2 Flow Rate FiO2 11/21/16 08:54 100 Nasal Cannula 3.00 11/21/16 08:00 97.5 134 28 100/74 Intake and Output 11/20/16 11/20/16 11/21/16 08:00 16:00 00:00 Intake Total 240 ml 2107 ml Output Total 350 ml 750 ml 1325 ml Balance -350 ml -510 ml 782 ml Result Diagram: 11/21/16 0435 11/21/16 0435 Imaging Last Impressions Chest X-Ray 11/20/16 0000 Signed Impressions: Service Date/Time: November 20:13 - CONCLUSION: Diffuse bilateral infiltrates Zeb Guan MD PICC Line Insertion 11/18/16 0000 Signed Impressions: Service Date/Time: Friday, November 18, 2016 13:39 - CONCLUSION: 1. Uncomplicated central venous Power PICC line placement. 2. The PICC line can be used immediately. Zeb Guan MD Chest CT 11/16/16 0000 Signed Impressions: Service Date/Time: Wednesday, November 16, 2016 09:39 - CONCLUSION: Overall worsening axillary, hilar and mediastinal adenopathy and airspace consolidative processes. Given the patient's prior history of lymphoma this is most consistent with recurrent versus worsening lymphoma. Marce Rajput MD Objective Remarks GENERAL: 66-year-old male, critically ill. SKIN: Warm and dry. Multiple petechiae on thorax abdomen/upper lower extremities. HEAD: Atraumatic. Normocephalic. EYES: Pupils equal and round about 2 mm bilaterally and reactive. ENT: No nasal bleeding or discharge. Mucous membranes pink and moist. NECK: Trachea midline. CARDIOVASCULAR: Tachycardic, RR. S1, S2. No S4. Without murmur. Neck veins full. RESPIRATORY: Few fine crackles appreciated bilateral. No wheezing is appreciated currently. Breath sounds equal bilaterally. GASTROINTESTINAL: Abdomen soft, non-tender, nondistended. Active bowel sounds are appreciated MUSCULOSKELETAL: Extremities without clubbing, cyanosis, or edema. NEUROLOGICAL: Awake and alert. No obvious cranial nerve deficits. Motor grossly within normal limits. Five out of 5 muscle strength in the arms and legs. Normal speech. Procedures 11/16/16 bone marrow biopsy A/P Assessment and Plan Neuro/Psych: Depression History of panic attacks Effexor 50 mg by mouth daily for depression Continue trazodone 100 milligrams daily for anxiety [place]/as needed morphine for pain management Acetaminophen as needed for fever CV: Sinus tachycardia History dyslipidemia Lactic acidosis unclear etiology Sinus tachycardia unclear. CTA chest. IV fluids currently at TKO. Did receive Lasix 40 mEq IV 1 and 4. Echocardiogram 11/17 revealed EF 55-60%. No regional wall motion abnormality. Systolic function normal. Follow-up on lactate. Unclear etiology Resp: Acute respiratory insufficiency History of tobaccoism Chest x-ray revealed bilateral pulmonary infiltrate. Follow up CTA chest. Unlikely PE. Bronchodilator therapy every 6 hours and as needed Nasal cannula to maintain saturations greater than equal to 92% Did receive 40 mg IV Lasix on floor. 500 cc urine output. Patient appears comfortable with no accessory muscle usage TRALI/TACO part of the differential with transfusions as described above.. Infectious part of the differential due to her compromised state GI: Elevated total bilirubin/AST Patient is currently nothing by mouth Protonix for GI prophylaxis Recheck CMP in a.m. Possibly congestion : Gregorio is not indicated currently. Endo: Sliding-scale insulin if indicated with Decadron/prednisone use Renal: Creatinine currently within normal limits Monitor urine output closely Accurate I's and O's Follow-up on BMP in a.m. Heme: High-grade malignant large cell lymphoma Leukopenia Normocytic anemia - transfuse 1 unit PRBCs this admission Thrombocytopenia - transfused 7 pack platelets since admission Hypogammaglobinemia Dr. Booth/oncology following On prednisone 80 mg daily 5 days start 11/18 Received Rituxan 577.5 mg 11/18 Receive vincristine 2 mg IV, Adriamycin 79 mg IV today. Did not receive total cyclophosphamide today. Did receive Decadron 20 mEq IV 1. On allopurinol 300 mg by mouth daily prevent tumor lysis syndrome. Uric acid pending CHOP therapy currently on hold ID: Infectious disease is following. Will obtain blood cultures 2. Restart vancomycin and add cefepime 1. Reassess in a.m. MSK: Osteoporosis/osteoarthritis History ORIF left hip/arm History of Blanco cyst Holding Fosamax 70 mg by mouth weekly. FEN: Replace electrolytes as clinically indicated Access - Utilize right upper extremity PICC. Prophylaxis - GI - Protonix - DVT - SCD/pharmacological prophylaxis contraindicated with thrombocytopenia Overall impression: Reaction during CHOP therapy. Malignant large cell lymphoma with thrombocytopenia and lung infiltrates. Hypotensive now and will require vasopressor therapy. Condition critically ill and declining. POA for [facility] , brother Johnny, informed and he requests no intubation. I will try aggressive diuresis. EF 15% by ECHO today. Critical Care 47 mins Diego Whiting MD Nov 21, 2016 10:34
[2016-11-21] MEDS ORDERED: VANCOMYCIN 1,000 MG/NS 250 ML IV SCH ×2 (11:00)
[2016-11-21] MEDS ORDERED: LORazepam 2 MG/ML VIAL ONE (11:43)
--- NOTE | 2016-11-21 11:48 | RADRPT ---
EXAM DATE/TIME: 11/21/2016 09:20 [facility] COMPARISON: No previous studies available for comparison. INDICATIONS : Bilateral leg swelling. MEDICAL HISTORY : Gastroesophageal reflux disease. Tinnitis. Liver disease. Measles. Insomnia. Hydrocephalus. Cdiff. SURGICAL HISTORY : Left hip replacement. Spinal tap. ENCOUNTER: Initial ACUITY: 1 day PAIN SCORE: 8/10 LOCATION: Bilateral leg. TECHNIQUE: Venous ultrasound of the left and right leg was performed from the inguinal ligament to the proximal calf. Real-time, color Doppler and spectral tracing, compression and augmentation techniques were us ed. FINDINGS: RIGHT LEG: There is normal compressibility of the deep venous system from the inguinal region to the proximal ca lf. No echogenic clot is seen in the lumen of the common femoral, femoral, popliteal, and posterior tibial veins. There is a normal response of the venous system to proximal and distal augmentation an d respiration. The in the popliteal fossa, a complex cystic structure is noted measuring 3.3 x 3.4 x 1.5 cm and an adjacent 2.6 x 0.8 x 2.2 cm collection. Hypoechoic 1.5 x 1.9 x 1.3 cm collection also seen. These are characteristic of Blanco's cyst. LEFT LEG: There is normal compressibility of the deep venous system from the inguinal region to the proximal ca lf. No echogenic clot is seen in the lumen of the common femoral, femoral, popliteal, and posterior tibial veins. There is a normal response of the venous system to proximal and distal augmentation an d respiration. CONCLUSION: 1. Right popliteal fossa complex fluid collections characteristic of Blanco's cyst. 2. No evidence for DVT. 3. Bilateral inguinal adenopathy. Manuel Law MD on November 21, 2016 at 11:44 Board Certified Radiologist. This report was verified electronically.
[2016-11-21] MEDS ORDERED: IOHEXOL 350 MG/ML 50 ML BTL (for RAD DIAG) ONE (12:15)
[2016-11-21] MEDS: PANTOPRAZOLE SODIUM 40 MG VIAL IV PUSH SCH (13:18)
[2016-11-21] MEDS ORDERED: FUROSEMIDE 100 MG/10 ML VIAL IV PUSH ONE (14:15)
--- NOTE | 2016-11-21 14:56 | PD.RAD ---
Post Procedure Progress Note Pre Procedure Diagnosis: (1) Malignant lymphoma, high grade Post Procedure Diagnosis: (1) Malignant lymphoma, high grade Procedure Date: Nov 21, 2016 Supervising Radiologist: Zeb Guan Proceduralist/Assist: Bill Light RT(R) Anesthesia: Local, Conscious Sedation Plan of Activity Patient to Unit: Critical Care Patient Condition: Critical See PACS Report for procedural detail/treatment Vascular-Venous Procedure Procedure 1 Procedure(s): Retrievable IVC Filter Access Access Site(s): Right Jugular Vein Central Venous Access Device Procedure 1 Right Internal Jugular Central Line Placement triple lumen Stateless: 7 Zeb Guan MD Nov 21, 2016 14:56
[2016-11-21] MEDS ORDERED: HYOSCYAMINE 0.125 MG IV (15:00)
[2016-11-21] MEDS ORDERED: LORazepam 2 MG/ML VIAL IV PUSH PRN (15:00)
[2016-11-21] MEDS ORDERED: SODIUM CHLORIDE 0.9% FLUSH 10 ML FLUSH IVF PRN (15:00)
[2016-11-21] MEDS ORDERED: PROPOFOL 1000 MG/100 ML INJ 100 ML IV SCH (15:30)
[2016-11-21] MEDS ORDERED: fentaNYL DRIP 250 ML IV SCH (15:30)
--- NOTE | 2016-11-21 17:44 | RADRPT ---
EXAM DATE/TIME: 11/21/2016 12:21 [facility] COMPARISON: No previous studies available for comparison. INDICATIONS : Patient with PE in need of central line for access. MEDICAL HISTORY : PE Thrombocytopenia Lymphoma Hyperlipidemia Depression Liver disease Sepsis SURGICAL HISTORY : ORIF left hip ORIF left arm ENCOUNTER: Subsequent ACUITY: 1 week PAIN SCORE: 5/10 LOCATION: all over FLUORO TIME: 2.0 minutes IMAGE SERIES: 1 ACCESS: Right internal jugular vein MEDICATION(S): 1.) 2 mg lorazepam (Ativan) IV DEVICE(S): 1.) 7 Citizen Of [place] triple lumen 16 cm Arrow central line PROCEDURE : 1. Ultrasound guided venipuncture. 2. Fluoroscopic guidance. 3. Central line placement. The risks, benefits and alternatives to the procedure were explained and verbal and written consent w as obtained. The site was prepped in sterile fashion. Full sterile technique was used, including ca p, mask, sterile gloves and gown and a large sterile sheet. Hand hygiene and 2% chlorhexidine prep w as utilized per protocol for cutaneous antisepsis with appropriate dry time for site. The skin and subcutaneous tissues were infiltrated with local anesthetic solution. A suitable site a deven the vein was selected with ultrasound and fluoroscopic guidance. A small incision was made. Th e vein was accessed under direct ultrasound visualization using the micropuncture technique. The gary ropuncture set was exchanged for a 0.035 wire. The tract was dilated. The catheter was advanced int o position under direct fluoroscopic visualization. The catheter was fixed in place with suture and a sterile dressing was applied. The patient tolerated the procedure well and there were no complications. CONCLUSION: Uncomplicated line placement as above. Zeb Guan MD on November 21, 2016 at 17:42 Board Certified Radiologist. This report was verified electronically.
--- NOTE | 2016-11-21 17:44 | RADRPT ---
EXAM DATE/TIME: 11/21/2016 12:21 [facility] COMPARISON: No previous studies available for comparison. INDICATIONS : Patient with PE in need of IVC filter placement. MEDICAL HISTORY : PE Thrombocytopenia Lymphoma Hyperlipidemia Depression Liver disease Sepsis SURGICAL HISTORY : ORIF left hip ORIF left arm ENCOUNTER: Initial ACUITY: 1 day PAIN SCORE: 5/10 LOCATION: all over FLUORO TIME: 2.0 minutes IMAGE SERIES: 1 ACCESS SITE: Right Internal jugular vein CONTRAST: 1.) 10 cc Omnipaque (iohexol) 350 MEDICATION(S): 1.) 2 mg lorazepam (Ativan) IV DEVICE(S): 1.) Inferior vena cava Bard Nayla filter PROCEDURE : 1. Ultrasound-guided venipuncture. 2. Inferior venacavogram. 3. Inferior vena cava filter placement. 4. Conscious sedation with continuous EKG and oximetry monitoring. The risks, benefits and alternatives to the procedure were explained and verbal and written consent w as obtained. The site was prepped in sterile fashion. Full sterile technique was used, including ca p, mask, sterile gloves and gown and a large sterile sheet. Hand hygiene and 2% chlorhexidine and/or betadine/alcohol prep was utilized per protocol for cutaneous antisepsis. The skin and subcutaneous tissues were infiltrated with local anesthetic solution. With ultrasound and fluoroscopic guidance the targeted vein was punctured and a vascular sheath was p laced. Inferior venacavogram was performed to demonstrate level of renal veins. No caval thrombus was identified. The prescribed filter was deployed in the infrarenal inferior vena cava. Following deplo yment the filter was identified in good position. Conscious sedation was performed with the prescribed dosages and duration as above in the presence of an independent trained radiology nurse to assist in the monitoring of the patient. EKG and oximetry remained stable throughout the procedure. The patient tolerated the procedure well and there were n o complications. The patient was sent to post anesthesia recovery in stable condition. CONCLUSION: Uncomplicated inferior vena cava filter placement as above. Zeb Guan MD on November 21, 2016 at 17:42 Board Certified Radiologist. This report was verified electronically.
[2016-11-21] MEDS ORDERED: CHLORHEXIDINE 0.12% (ORAL KIT) 15 ML CUP MT SCH (20:00)
[2016-11-21] MEDS ORDERED: traZODone HCL 100 MG TAB PO SCH (21:00)
[2016-11-22] VITALS (7 sets, daily range): BP systolic 85–97; BP diastolic 55–65; PULSE 133–148; RESP 18–26; TEMP 95–97.2; O2SAT 77–95
[2016-11-22 03:51] LABS: PHOSPHATIDYLSERINE AB IGA LESS THAN 20.0 U/mL (()); PHOSPHATIDYLSERINE AB IGM LESS THAN 25.0 U/mL (())
[2016-11-22] MEDS: RESP: ALBUTEROL 2.5 MG/IPRATROPIUM 0.5 MG NEB (SCH) NEB ×2 (04:13→07:58)
[2016-11-22] MEDS ORDERED: FUROSEMIDE 40 MG/4 ML VIAL IV PUSH SCH (05:30)
[2016-11-22 06:42] LABS: AUTOMATED NEUTROPHIL # 3.1 TH/MM3 (1.8-7.7); BASOPHIL % 0.1 % (0.0-2.0); EOSINOPHIL % 0.1 % (0.0-4.0); LYMPH % 2.7 % (9.0-44.0); LYMPHOCYTE # 0.1 TH/MM3 (1.0-4.8); MEAN CELL VOLUME 86.1 FL (80.0-100.0); MEAN CORPUSCULAR HEMOGLOBIN 30.6 PG (27.0-34.0); MEAN CORPUSCULAR HGB CONC 35.5 % (32.0-36.0); MONO % 1.6 % (0.0-8.0); NEUT % 95.5 % (16.0-70.0); RED BLOOD COUNT 2.67 MIL/MM3 (4.50-5.90); RED CELL DISTRIBUTION WIDTH 14.6 % (11.6-17.2); WHITE BLOOD COUNT 3.2 TH/MM3 (4.0-11.0)
[2016-11-22 06:52] LABS: HEMO FLAGS AUTO DIFF
[2016-11-22 06:54] LABS: PLATELET COUNT 15 TH/MM3 (150-450)
[2016-11-22 07:28] LABS: BICARBONATE 20.8 MEQ/L (21.0-32.0); CALCIUM-PROTEIN CORRECTED 8.2 MG/DL (8.5-10.1); POTASSIUM 4.2 MEQ/L (3.5-5.1); TOTAL BILIRUBIN ADULT 1.8 MG/DL (0.2-1.0); URIC ACID 2.5 MG/DL (2.6-7.2)
[2016-11-22 08:41] LABS: BANDS 27 % (0-6); CORRECTED NUCLEATED RBC 11 /100 WBC (0-0); NEUTROPHIL # MANUAL DIFF 3.1 TH/MM3 (1.8-7.7); PLATELET ESTIMATE SMEAR RARE (NORMAL); PLATELET MORPHOLOGY NORMAL (NORMAL); POLYS (SEG NEUTROPHILS) 70 % (16-70); SCAN/DIFF FINAL DIFF MANUAL; WBC DIFF SAMPLE 100
[2016-11-22] MEDS ORDERED: SODIUM CHLORIDE 0.9% FLUSH 10 ML FLUSH IVF SCH (09:00)
[2016-11-22] MEDS ORDERED: PHARMACY ORDERED LAB ONE (10:45)
[2016-11-22] MEDS: MORPHINE SULFATE 4 MG/ML INJ IV PRN (12:58)
--- NOTE | 2016-11-22 14:44 | EKG ---
Date Performed: 11/21/2016 Time Performed: 14:32:12 PTAGE: 66 years EKG: Rapid regular supraventricular tachycardia with a rate of 154 bpm Vertical QRS axis Low QRS voltage in limb leads Diffuse nonspecific ST-T changes Compared to previous tracing, heart rate has increased from 129 bpm to 154 bpm, previous tracing appeared to be sinus tachycardia, this may be sin us tachycardia or other supraventricular tachycardia. ABNORMAL ECG PREVIOUS TRACING : 11/21/2016 00.03 DOCTOR: Chente Davis Interpretating Date/Time 11/22/2016 14:43:44
--- NOTE | 2016-11-22 17:11 | PD.TRANSFR ---
Transfer Summary Admission Date Nov 16, 2016 at 06:50 Transfer Date: Nov 21, 2016 Admitting Diagnosis dehydration, normocytic anemia, lymphoma Diagnoses: (1) Sepsis with multiple organ dysfunction (MOD) Diagnosis: Principal (2) Thrombocytopenia Diagnosis: Principal (3) Pulmonary emboli Diagnosis: Principal (4) Lymphoma Diagnosis: Principal (5) Dehydration (6) Lactic acidosis (7) Depression (8) SIRS (systemic inflammatory response syndrome) (9) Hypocalcemia (10) Hypokalemia Procedures 11/16/16 bone marrow biopsy Imaging CTA: Pulmonary Embolus. Significant Findings Laboratory Tests Test 11/20/16 11/20/16 11/21/16 11/22/16 05:42 20:02 04:35 06:15 White Blood Count 3.1 TH/MM3 2.6 TH/MM3 3.2 TH/MM3 (4.0-11.0) (4.0-11.0) (4.0-11.0) Red Blood Count 2.76 MIL/MM3 3.13 MIL/MM3 2.88 MIL/MM3 2.67 MIL/MM3 (4.50-5.90) (4.50-5.90) (4.50-5.90) (4.50-5.90) Hemoglobin 8.1 GM/DL 9.4 GM/DL 8.6 GM/DL 8.2 GM/DL (13.0-17.0) (13.0-17.0) (13.0-17.0) (13.0-17.0) Hematocrit 23.1 % 26.3 % 24.4 % 23.0 % (39.0-51.0) (39.0-51.0) (39.0-51.0) (39.0-51.0) Platelet Count 8 TH/MM3 25 TH/MM3 8 TH/MM3 15 TH/MM3 (150-450) (150-450) (150-450) (150-450) Neutrophils (%) (Auto) 88.4 % 87.2 % 94.6 % 95.5 % (16.0-70.0) (16.0-70.0) (16.0-70.0) (16.0-70.0) Lymphocytes (%) (Auto) 6.9 % 3.4 % 2.7 % (9.0-44.0) (9.0-44.0) (9.0-44.0) Lymphocytes # (Auto) 0.2 TH/MM3 0.2 TH/MM3 0.2 TH/MM3 0.1 TH/MM3 (1.0-4.8) (1.0-4.8) (1.0-4.8) (1.0-4.8) Platelet Estimate RARE (NORMAL) RARE (NORMAL) RARE (NORMAL) Creatinine 0.43 MG/DL (0.60-1.30) Uric Acid 0.7 MG/DL 0.6 MG/DL 1.0 MG/DL 2.5 MG/DL (2.6-7.2) (2.6-7.2) (2.6-7.2) (2.6-7.2) Calcium Level 7.2 MG/DL 7.1 MG/DL 7.2 MG/DL 7.2 MG/DL (8.5-10.1) (8.5-10.1) (8.5-10.1) (8.5-10.1) Protein Corrected Calcium 8.3 MG/DL 7.9 MG/DL 7.8 MG/DL 8.2 MG/DL (8.5-10.1) (8.5-10.1) (8.5-10.1) (8.5-10.1) Total Bilirubin 1.7 MG/DL 2.1 MG/DL 1.9 MG/DL 1.8 MG/DL (0.2-1.0) (0.2-1.0) (0.2-1.0) (0.2-1.0) Aspartate Amino Transf 72 U/L (15-37) 87 U/L (15-37) 96 U/L (15-37) 3951 U/L (AST/SGOT) (15-37) Alkaline Phosphatase 171 U/L 220 U/L 193 U/L 248 U/L (45-117) (45-117) (45-117) (45-117) Lactate Dehydrogenase 1109 U/L 1458 U/L (87-241) (87-241) Total Protein 5.0 GM/DL 5.6 GM/DL 6.0 GM/DL 5.3 GM/DL (6.4-8.2) (6.4-8.2) (6.4-8.2) (6.4-8.2) Albumin 1.9 GM/DL 2.1 GM/DL 2.7 GM/DL 2.3 GM/DL (3.4-5.0) (3.4-5.0) (3.4-5.0) (3.4-5.0) Random Glucose 121 MG/DL 135 MG/DL 141 MG/DL (74-106) (74-106) (74-106) Lactic Acid Level 7.5 mmol/L 3.3 mmol/L (0.4-2.0) (0.4-2.0) B-Type Natriuretic Peptide 357 PG/ML (0-100) Basophilic Stippling FAINT (NORMAL) Troponin I 2.07 NG/ML (0.02-0.05) Band Neutrophils % 27 % (0-6) Lymphocytes % 1 % (9-44) Nucleated Red Blood Cells 11 /100 WBC (0-0) Carbon Dioxide Level 20.8 MEQ/L (21.0-32.0) Anion Gap 16 MEQ/L (5-15) Blood Urea Nitrogen 30 MG/DL (7-18) Estimat Glomerular Filtration 56 ML/MIN (>89) Rate Alanine Aminotransferase 986 U/L (12-78) (ALT/SGPT) Transfer Summary End-stage malignant large cell lymphoma. Following CHOP as a last attempt he developed thrombocytopenia, full blown SIRS and probably sepsis. Multiple organ dysfunction ensued. He became incapacitated and per POA for healthcare, his brother Johnny, he was transferred to in-patient hospice. Proposed Disposition: Hospice/Med Facility Diego Whiting MD Nov 22, 2016 17:11
== END 2016-11-22 12:53 | disposition hospice, inpatient (51) | DRG 853 ==
LOC: NEPC 04:32 → NEDA 06:50 → HOCA 08:30 → N03A 11-20 21:53 → HOCA 11-21 21:23
PROVIDERS: ADMIT Internal Medicine Critical Care Medicine; ATTEND Internal Medicine Critical Care Medicine
PROC: 30233R1 Transfusion of Nonautologous Platelets into Peripheral Vein, Percutaneous Approach (ICD-10-PCS; 2016-11-16)
PROC: 07DR3ZX Extraction of Iliac Bone Marrow, Percutaneous Approach, Diagnostic (ICD-10-PCS; 2016-11-16)
PROC: 30233N1 Transfusion of Nonautologous Red Blood Cells into Peripheral Vein, Percutaneous Approach (ICD-10-PCS; 2016-11-18)
PROC: 02HV33Z Insertion of Infusion Device into Superior Vena Cava, Percutaneous Approach (ICD-10-PCS; 2016-11-18)
PROC: 06H03DZ Insertion of Intraluminal Device into Inferior Vena Cava, Percutaneous Approach (ICD-10-PCS; principal; 2016-11-21)
PROC: 02HV33Z Insertion of Infusion Device into Superior Vena Cava, Percutaneous Approach (ICD-10-PCS; 2016-11-21)
DX: A41.9 Sepsis, unspecified organism (principal); I26.99 Other pulmonary embolism without acute cor pulmonale; E87.2 Acidosis; D69.3 Immune thrombocytopenic purpura; C83.30 Diffuse large B-cell lymphoma, unspecified site; Z68.1 Body mass index [BMI] 19.9 or less, adult; R65.20 Severe sepsis without septic shock; E83.51 Hypocalcemia; E86.0 Dehydration; E78.5 Hyperlipidemia, unspecified; J44.9 Chronic obstructive pulmonary disease, unspecified; R63.4 Abnormal weight loss; M81.0 Age-related osteoporosis without current pathological fracture; M19.90 Unspecified osteoarthritis, unspecified site; R00.0 Tachycardia, unspecified; R09.02 Hypoxemia; D64.9 Anemia, unspecified; E87.6 Hypokalemia; R06.00 Dyspnea, unspecified; D72.819 Decreased white blood cell count, unspecified; F17.200 Nicotine dependence, unspecified, uncomplicated; F32.9 Major depressive disorder, single episode, unspecified; F41.0 Panic disorder [episodic paroxysmal anxiety]
CPT/HCPCS: 36430; 36556; 36569; 37191; 71010; 71260; 71275; 76937; 77001; 80053; 80074; 80202; 82247; 82248; 82550; 82784; 83605; 83615; 83735; 83880; 84100; 84165; 84443; 84484; 84550; 85007; 85025; 85027; 85044; 85049; 85060; 85097; 85384; 85610; 85652; 85730; 86022; 86146; 86147; 86148; 86403; 86850; 86880; 86900; 86901; 86920; 86965; 87040; 87205; 87493; 87641; 88184; 88185; 88237; 88305; 88311; 88313; 88377; 93005; 93306; 93308; 93970; 94640; 94664; 96360; 96374; C1751; C1769; C1880; C9113; J0171; J0461; J0610; J0692; J1100; J1459; J1626; J1642; J1940; J2060; J2175; J2270; J2405; J3370; J3480; J7030; J7040; J7050; J7512; J9000; J9070; J9310; J9370; P9016; P9035; P9037; P9047; Q9967